=== PATIENT | male | born 1930 | race Caucasian/White ===

== ENCOUNTER 2017-10-22 06:59 | Inpatient (IN) | payer OTHER, MEDICARE ==
[2017-10-22] VITALS (8 sets, daily range): BP systolic 142–170; BP diastolic 82–101; PULSE 59–72; RESP 16–20; TEMP 97.6–99.1; O2SAT 95–98
[~2017-10-22] VITALS: Ht 162.6 cm; Wt 66.0 kg
[~2017-10-22 06:59] MED LIST: ASPI81 PO; CARD240C6 PO; LISI-360 PO; MELA5TAB8 PO; PRAV80 PO; TERA5CAP3 PO; VITA-13 PO
[2017-10-22] MEDS ORDERED: DOBUTamine PREMIX DRIP 250 ML ONE (07:41)
[2017-10-22] MEDS ORDERED: FURO40TA PO (07:45)
[2017-10-22] MEDS ORDERED: CARV3.12 PO (07:45)
[2017-10-22] MEDS ORDERED: KLOR10TA PO (07:45)
[2017-10-22] MEDS ORDERED: SODIUM CHLOR 0.9% 1000 ML INJ 1,000 ML IV SCH ×2 (07:45→13:22)
[2017-10-22] MEDS ORDERED: ASPI-183 PO (07:45)
[2017-10-22] MEDS ORDERED: TAMS0.4C4 PO (07:45)
[2017-10-22] MEDS ORDERED: TRAZ50TA12 PO (07:45)
[2017-10-22] MEDS ORDERED: CARD120C4 PO (07:45)
[2017-10-22] MEDS ORDERED: BUSP15TA PO (07:45)
[2017-10-22] MEDS ORDERED: VITA2000 PO (07:45)
[2017-10-22] MEDS ORDERED: ATOR80TA45 PO (07:45)
[2017-10-22 07:49] LABS: AUTOMATED NEUTROPHIL # 4.3 TH/MM3 (1.8-7.7); BASOPHIL # 0.1 TH/MM3 (0-0.2); BASOPHIL % 0.9 % (0.0-2.0); EOSINOPHIL # 0.5 TH/MM3 (0-0.4); EOSINOPHIL % 7.1 % (0.0-4.0); HEMATOCRIT 41.8 % (39.0-51.0); HEMOGLOBIN 14.6 GM/DL (13.0-17.0); LYMPH % 19.8 % (9.0-44.0); LYMPHOCYTE # 1.4 TH/MM3 (1.0-4.8); MEAN CELL VOLUME 89.4 FL (80.0-100.0); MEAN CORPUSCULAR HEMOGLOBIN 31.1 PG (27.0-34.0); MEAN CORPUSCULAR HGB CONC 34.8 % (32.0-36.0); MEAN PLATELET VOLUME 8.2 FL (7.0-11.0); MONO % 9.5 % (0.0-8.0); MONOCYTE # 0.7 TH/MM3 (0-0.9); NEUT % 62.7 % (16.0-70.0); PLATELET COUNT 176 TH/MM3 (150-450); RED BLOOD COUNT 4.68 MIL/MM3 (4.50-5.90); RED CELL DISTRIBUTION WIDTH 14.2 % (11.6-17.2); WHITE BLOOD COUNT 6.9 TH/MM3 (4.0-11.0)
[2017-10-22 07:58] LABS: INTERNATIONAL NORMALIZED RATIO 1.1 RATIO; PROTHROMBIN TIME - PATIENT 11.2 SEC (9.8-11.6)
[2017-10-22 08:00] LABS: ALBUMIN 4.2 GM/DL (3.4-5.0); BICARBONATE 30.6 MEQ/L (21.0-32.0); CALCIUM 9.1 MG/DL (8.5-10.1); CREATININE 1.4 MG/DL (0.60-1.30)
[2017-10-22] MEDS ORDERED: ASPIRIN 325 MG TAB PO SCH (08:00)
[2017-10-22] MEDS: NS 1000P @30 MLS/HR (KVO) IV SCH ×2 (08:00→19:00)
[2017-10-22] MEDS ORDERED: IOHEXOL 350 MG/ML 100 ML BTL (for Cath Lab) OTHER ONE (09:32)
[2017-10-22] MEDS ORDERED: IOHEXOL 350 MG/ML 50 ML BTL (for Cath Lab) OTHER ONE (09:32)
[2017-10-22] MEDS ORDERED: HEPARIN-NS/PF INJ 1,000 ML ONE ×2 (09:39→12:09)
[2017-10-22] MEDS ORDERED: MIDAZOLAM HCL 2 MG/2 ML VIAL ONE (09:40)
[2017-10-22] MEDS ORDERED: HEPARIN SODIUM - IV 10,000 UNITS/10 ML VIAL ONE (09:40)
[2017-10-22] MEDS ORDERED: VERAPAMIL HCL 5 MG/2 ML VIAL ONE (09:40)
[2017-10-22] MEDS ORDERED: NITROGLYCERIN INJ 5 ML ONE (09:40)
--- NOTE | 2017-10-22 09:40 | PD.FRAIL ---
Date: Oct 22, 2017 Height: Weight: 64.9 kg BMI: 24.7 Assessment Performed: Outpatient Albumin 10/22/17 07:40: Blood Urea Nitrogen 16, Creatinine 1.40, Random Glucose 119, Albumin 4.2, Calcium Level 9.1, Sodium Level 138, Potassium Level 3.6, Chloride Level 100, Carbon Dioxide Level 30.6 Pass/Fail: Pass Rust Activities Daily Living Rust ADL Score: Bathing(bathes self/help in single area): [place] (1), Dressing(gets/puts clothes on self): [place] (1), Toileting(goes without help): [place] ( 1), [facility] [place] ([facility]), Continence( complete self-control): [place] (1), Feeding(self, prep by another allowed) : [place] (1), Total: 6 Pass/Fail: Pass Wire Drawer Strength Grasp 1: 16 Grasp 2: 12 Grasp 3: 12 Average: 13.3 Pass/Fail: Fail 15-Foot Walk 15-Foot Walk (seconds): 6 Pass/Fail: Pass Total Frailty Total Frailty (out of 4): 1 Frailty Index Score Reference Wire Drawer Strength: BMI: <=24 Cutoff for banquet captain strength(Kg): <=29 BMI: 24.1-28 Cutoff for banquet captain strength(Kg): <=30 BMI: >28 Cutoff for banquet captain strength(Kg): <=32 15-Foot Walk: Height: <=173 cm 15-Foot Walk Cutoff Time: >=7 seconds Height: >173 cm 15-Foot Walk Cutoff Time: >=6 seconds Tommy Borjas RN Oct 22, 2017 09:40
[2017-10-22] MEDS ORDERED: PHENYLEPHRINE HCL 10 MG/ML VIAL ONE (10:34)
[2017-10-22] MEDS ORDERED: HEPARIN-NS/PF INJ 500 ML ONE (11:21)
--- NOTE | 2017-10-22 11:53 | RADRPT ---
EXAM DATE/TIME: 10/22/2017 07:57 [facility] COMPARISON: No previous studies available for comparison. INDICATIONS : TAVR evaluation. MEDICAL HISTORY : None. SURGICAL HISTORY : Pacemaker. ENCOUNTER: Initial ACUITY: 1 day PAIN SCORE: 0/10 LOCATION: Bilateral chest FINDINGS: A single view of the chest demonstrates the lungs to be symmetrically aerated without evidence of mas s, infiltrate or effusion. Left subclavian bipolar pacer in good position. The aorta is quite tortuou s. The cardiomediastinal contours are unremarkable. Osseous structures are intact. CONCLUSION: Lungs are grossly clear. Left subclavian pacer in good position. Aorta remains quite tortuous and prominent Jigar Donato MD on October 22, 2017 at 11:50 Board Certified Radiologist. This report was verified electronically.
[2017-10-22] MEDS ORDERED: HEPARIN-D5W 25,000 U/250 ML 250 ML ONE (12:37)
[2017-10-22] MEDS ORDERED: CLOPIDOGREL 300 MG TAB ONE (12:42)
--- NOTE | 2017-10-22 13:17 | CATHPROC ---
[facility] HIS Report Study Information Study Number Admission Scheduled Start Study Start [id number] Oct 22 2017 6:59AM 10/22/2017 Oct 22 2017 9:32AM [facility] Cardiac Catheterization Admit Source Facility Department Other [facility] - Performance Improvement Consultant Physician and Clinical Staff Initial MD Munoz, Juan Francisco Submarine Operatorevin Kessler RN, Albino Submarine OperatorTrinity Juares RN Other cathlab, cathlab Recorder Gael Chery RCIS(BS) Scrub Bro SandersRT(R) Procedures Performed Procedure Location (Site) Vessel Name Coronary Angiograms LCA Left Coronary Coronary Angiograms RCA Right Coronary Drug Eluting Inflatio LAD Mid Left Coronary IABP Fem Art (right) Femoral Art L Heart Cath PTCA LAD Mid Left Coronary Wire insertion Fem Art (right) Femoral Art Equipment Time Manager Sas Description Size Mfg Part Number Used/Scraped COPILOT VALVE, BLEEDBACK [id number] 10:41 [employer] Used CONTROL *[id number] WIRE, BALANCE MIDDLEWEIGHT [id number] 10:52 [employer] 190CM Used 190CM *[id number] WIRE, BALANCE MIDDLEWEIGHT [id number] 11:32 [employer] 190CM Used 190CM *[id number] WIRE, BALANCE MIDDLEWEIGHT [id number] 11:43 [employer] 300CM Used 300CM *[id number] 11:21 [employer] WIRE, DOC EXTENSION 145CM 145CM [id number] *[id number] Used TRANSDUCER, TRUWAVE [id number] 09:44 VARGAS CUETO * Used W/STOCKCOCK *[id number] INTRODUCER SET, 10:39 [employer]. FR 5 [id number] *[id number] Used MICROPUNCTURE, STIFFENED BALLOON, FR8 50CC SENSATION [id number]- 12:31 MAQUET FR 8 50CC Used PLUS 01U WIRE, CHOICE PT 300CM PT EX. [id number] 11:52 Meditech 300CM Used SUPP *[id number] 09:44 Chronicity INDUSTRIES PACK, CCL CUSTOM * Used *[id number] 09:44 Vonjour SUPPORT, ARTERIAL ADULT 03977 *0091562 Used BALLOON, 1.25 X 10MM [id number] 11:38 MEDTRONIC 10MM Used SPRINTER LEGEND RX *[id number] BALLOON, 1.25 X 6MM SPRINTER [id number] 11:21 MEDTRONIC 6MM Used LEGEND OTW *2048551 [id number] 11:04 MEDTRONIC BALLOON, 2.5 X 12MM EUPHORA 12MM Used *[id number] BALLOON, 3.0 X 15MM NC [id number] 11:14 MEDTRONIC 15MM Used EUPHORA *[id number] [id number] 09:55 MEDTRONIC JL 3.5 DXTERITY CATHETER FR 5 Used *[id number] 09:55 MEDTRONIC JR 4.0 DXTERITY CATHETER FR 5 [id number] Used [id number] 10:50 MEDTRONIC STENT, 2.5 8MM KILLIAN 2.5 8MM Used *2911929 [id number] 11:09 MEDTRONIC STENT, 2.75 12MM KILLIAN 2.75 12MM Used *4688614 [id number] 11:06 MEDTRONIC STENT, 2.75 15MM KILLIAN 2.75 15MM Used *3677967 [id number] 11:12 MEDTRONIC STENT, 2.75 8MM KILLIAN 2.75 8MM Used *[id number] [id number] 10:42 MEDTRONIC/AVE EBU 3.5 Z2 GUIDE CATHETER FR 6 Used *7894719 [id number] 10:41 [employer] MEDICAL 30 EVELIA INDEFLATOR Used *5525146 BAND, RADIAL COMPRESSION TR [id number] 12:41 [employer]IT [employer]ICAL 29CM Used LARGE 29 *5884918 [id number] 09:44 [employer] MEDICAL WIRE, 3MMJ .035 180CM 180CM Used *9922709 [id number] 09:44 NAMIC MANIFOLD, 4 PORT * Used *[id number] 09:44 NYCOMED OMNIPAQUE, 350 MG, 150ML 150ML [id number] Used [id number] 09:44 LING MEDICAL BLANKET,WARM AIR CCL * Used *8699294 [id number] 10:37 TERUMO MEDICAL SHEATH, FR6 TERUMO (10CM) FR 6 Used *3003811 SHEATH, FR6 TRANSRADIAL [id number] 09:44 [employer] MEDICAL FR 6 Used SLENDER 10CM *7086718 WIRE, RUNTHROUGH NS FLOPPY 25-1011 10:41 [employer] MEDICAL 180CM Used .014 180CM *[id number] 35-1450 11:27 TERUMO MEDICAL/DERRICK CATHETER, FINECROSS 150CM FR 5 Used *0150648 12:08 VASCULAR SOLUTIONS CATHETER, FR6 GUIDELINER FR 6 5571 *[id number] Used Equipment Model, Serial, Lot Number and Expiration Data Description Model Number Serial Number Lot Number Expiration Date CATHETER, FINECROSS 150CM [id number] 06-04-2019 INTRODUCER SET, [id number] 07-20-2020 MICROPUNCTURE, STIFFENED JR 4.0 DXTERITY CATHETER [id number] 07-01-2020 STENT, 2.5 8MM KILLIAN [id number] 07-21-2019 STENT, 2.75 12MM KILLIAN [id number] 03-19-2019 STENT, 2.75 8MM KILLIAN [id number] 12-17-2018 WIRE, CHOICE PT 300CM PT EX. [id number] 12-30-2018 SUPP History: Current Medications Medication Dosage/Unit Route Frequency Last Date/Time Taken Statins (any) Beta Tim ASA History: Allergies Allergy Reaction No Known Allergies History: Risk Factors Family History of Hypertension Dyslipidemia Previous TX Previous Heart Failure Premature CAD Yes Yes No Yes Yes Prior Valve Prior PCI Prior PCIDate Prior CABG Surgery No Yes 02/24/2014 No Cerebrovascular Peripheral Artery Chronic Lung On Dialysis Diabetes Disease Disease Disease No No No Yes No History: Symptoms/Diagnosis Selection Items GAUTAM SOB History: Stress Tests Stress or Imaging Studies Performed No History: Other Disease Selection Items CAD CHF HTN History: TX/CV Data Previous Cath Date 02/24/2014 History: Other Current Smoker No Labs Hgb (g/dl) Hct (%) WBC (l/cumm) Platelets (thousands) 11.60-17.00 35.00-51.00 4.00-11.00 150.00-450.00 14.6 41.8 6.9 176 Glucose (mg/dl) BUN (mg/dl) Creatinine (mg/dl) BUN:Creatinine (1:x) 74.00-106.00 7.00-18.00 0.50-1.30 10.00-20.00 119 16 1.4 11.4 Na (meq/l) K (meq/l) 136.00-145.00 3.50-5.10 138 3.6 INR (PTT:PT) 0.90-1.10 1.1 CPK-MB (ng/ML) 0.50-3.60 Not Drawn Medication Medication Total Dose (Bolus/Oral) Medication Total Dosage/Unit 1% XYLOCAINE 23 mL FENTANYL 75 mcg HEPARIN 5500 units OXYGEN 2 l/min PLAVIX 600 mg RADIAL COCKTAIL 5 mL (Bolus) VERSED 2 mg Medications (Bolus/Oral) Medication Time Given Dosage/Unit Administered By Reason VERSED 10/22/2017 10:20:00 AM 2 mg Albino Kessler RN 2 mg VERSED given in lab by Albino Kessler RN in Left Antecubital via Peripheral IV. Ordered by Juan Francisco Martell. FENTANYL 10/22/2017 10:21:00 AM 50 mcg Albino Kessler RN 50 mcg FENTANYL given in lab by Albino Kessler RN in Left Antecubital via Peripheral IV. Ordered by Juan Francisco Ocampo. 1% XYLOCAINE 10/22/2017 10:22:05 AM 3 mL ArnoldrJuan Francisco 3 mL 1% XYLOCAINE given in lab by Juan Francisco Munoz in Right Radial via Subcutaneous. OXYGEN 10/22/2017 10:22:47 AM 2 l/min Albino Kessler RN 2 l/min OXYGEN given in lab by Albino Kessler RN via Nasal. Ntg 200mcg Verapamil 2.5mg Heparin RADIAL COCKTAIL 10/22/2017 10:25:49 AM 5 mL (Bolus) Patrick Munozro 2500U 5 mL (Bolus) RADIAL COCKTAIL given in lab by Juan Francisco Munoz in Right Radial via Radial. Using [Radha ution Name]. Ordered by Juan Francisco Munoz. Reason: Ntg 200mcg Verapamil 2.5mg Heparin 2500U. 1% XYLOCAINE 10/22/2017 10:39:01 AM 20 mL Juan Francisco Munoz 20 mL 1% XYLOCAINE given in lab by Juan Francisco Munoz in Right Groin via Subcutaneous. HEPARIN 10/22/2017 10:41:30 AM 2500 units Albino Kessler RN 2500 units HEPARIN given in lab by Albino Kessler RN in Left Antecubital via Peripheral IV. Ordered by Juan Francisco Munoz. HEPARIN 10/22/2017 10:57:03 AM 3000 units Albino Kessler RN 3000 units HEPARIN given in lab by Albino Kessler RN in Left Antecubital via Peripheral IV. Ordered by Juan Francisco Munoz. FENTANYL 10/22/2017 12:12:21 PM 25 mcg Albino Kessler RN 25 mcg FENTANYL given in lab by Albino Kessler RN in Left Antecubital via Peripheral IV. Ordered by Juan Francisco Ocampo. PLAVIX 10/22/2017 12:45:20 PM 600 mg Trinity Briggs 600 mg PLAVIX given in lab by Trinity Briggs RN via Oral. Ordered by Juan Francisco Munoz. Medication (Drip) Medication Time Given Dosage/Unit Concentration/Unit Diluent (ml) Solution HEPARIN DRIP 10/22/2017 12:40:58 PM 1000 units/hr 95638 units 250 D5W 1000 units/hr HEPARIN DRIP given in lab by Trinity Briggs RN in Left Antecubital via Peripheral IV. Pump/Drip Flow = 10 ml/hr [place] [address] units in 250 ml. Ordered by Juan Francisco Munoz. FADIA-SYNEPHRINE 10/22/2017 10:35:11 AM 50 mcg 50 mcg FADIA-SYNEPHRINE given in lab by Albino Kessler RN in Left Antecubital via Peripheral IV. Ordered by Juan Francisco Munoz. FADIA-SYNEPHRINE 10/22/2017 11:06:03 AM 50 mcg 50 mcg FADIA-SYNEPHRINE given in lab by Albino Kessler RN in Left Antecubital via Peripheral IV. Ordered by Juan Francisco Munoz. FADIA-SYNEPHRINE 10/22/2017 11:09:21 AM 50 mcg 50 mcg FADIA-SYNEPHRINE given in lab by Albino Kessler RN in Left Antecubital via Peripheral IV. Ordered by Juan Francisco Munoz. Initial Case Assessment Cardiovascular HR Rhythm NIBP Chest Pain 69 nsr 177/86 0 Edema Present Skin color Skin None Normal Warm Dry Circulatory - Right Pulses Dorsalis Pedis Femoral Radial 1 3 2 Scale (0,1,2,3,4,d) Circulatory - Left Pulses Dorsalis Pedis Femoral Radial 1 3 Scale (0,1,2,3,4,d) Neurological State Oriented to time-place- Alert Moves all extremities person Respiration - General Respiration Rate SpO2 (%) (B/min) 15 97 Comment: see vitals Chronological Log Time Study Chronological Log 9:32:32 Patient arrived via Bed. 9:32:33 Patient Name, D.O.B, / Armband Verified By R.N. 9:32:33 Consent signed by the physician and the patient and verified by the Performance Improvement Consultant staff. 9:32:34 Pre-op and post- op instructions given; patient acknowledges understanding of instructions. 9:32:35 Presedation assessment performed by Performance Improvement Consultant RN. 9:32:36 Immediate Presedation assesment performed by physician. 9:32:37 Patient has been NPO for More than 6Hrs. 9:32:38 Skin Breakdown- none per patient 9:32:39 Patient Warmer Placed on the Table. 9:32:40 Radha Prominences Protected 9:32:41 A # 20 IV was noted in the Antecubital (left). Grade = 0 9:32:42 History and physical on the chart or being dictated. 9:32:49 Allens test performed on the right radial and ulnar artery. Vitals capture started with the following parameters, Patient=Adult, Interval=5 min, Initial Pr dzlgoq=603 mmHg, 9:39:15 Deflation Rate=5 mmHg, Cuff placed on Left Arm Assessment: Initial Case, HR=69 BPM, Rhythm=nsr, GWJM=143/86 mmhg, Chest Pain=0, Edema=None, Co radha=Normal, Skin = Warm, Dry Right Pulses: Austin Ped=1, Femoral=3, Radial=2 9:39:33 Left Pulses: Austin Ped=1, Femoral=3 Neurological: State=Alert, Ox3, CORREA Respiration: Resp=15 B/min, SpO2=97 %, Comment=see vitals 9:40:34 HR=69 bpm, HSZL=651/86 mmhg, SpO2=96.0 %, Resp=11 B/min, Pain=0, Janene=10, Keith=2 9:44:56 HR=68 bpm, UZWR=097/75 mmhg, SpO2=95.0 %, Resp=14 B/min, Pain=0, Janene=10, Keith=2 9:46:16 Right radial, right brachial, and groin(s) prepped with 2% chlorhexidine, and draped after a 3 min. waiting time. 9:49:55 HR=75 bpm, DSWQ=217/74 mmhg, SpO2=97.0 %, Resp=13 B/min, Pain=0, Janene=10, Keith=2 9:50:46 MD paged 9:51:34 Pressure channel 1 zeroed. 9:54:54 HR=66 bpm, CBOS=071/84 mmhg, SpO2=97.0 %, Resp=14 B/min, Pain=0, Janene=10, Keith=2 9:55:52 MD responded 9:58:18 Reference ECG taken 9:59:53 HR=63 bpm, NEJH=190/85 mmhg, SpO2=95.0 %, Resp=12 B/min, Pain=0, Janene=10, Keith=2 10:04:54 HR=61 bpm, CNIR=408/82 mmhg, SpO2=99.0 %, Resp=11 B/min, Pain=0, Janene=10, Keith=2 10:10:37 HR=60 bpm, JQXD=249/78 mmhg, SpO2=98.0 %, Resp=15 B/min, Pain=0, Janene=10, Keith=2 10:14:51 HR=63 bpm, TWMA=377/86 mmhg, SpO2=97.0 %, Resp=12 B/min, Pain=0, Janene=10, Keith=2 10:17:39 MD arrived. 10:17:43 Contrast Scanned 10:17:43 Immediate Presedation assesment performed by physician. 10:19:54 HR=62 bpm, PYEL=545/85 mmhg, SpO2=97.0 %, Resp=16 B/min, Pain=0, Janene=10, Keith=2 10:20:00 2 mg VERSED given in lab by Albino Kessler RN in Left Antecubital via Peripheral IV. Ordered by Juan Francisco Munoz. 10:21:00 50 mcg FENTANYL given in lab by Albnio Kessler RN in Left Antecubital via Peripheral IV. Orde red by Juan Francisco Munoz. Time Out. Correct patient, correct procedure, correct physician, power injector not loaded with contrast with surgical 10:21:27 team present. Time Out Concurred by MD and individual staff in procedure. 10:21:34 Case Start 10:21:34 Verbal Stimulation=2 Physical Stimulation=2 Airway=2 Respiration=2 TOTAL=8. (0=absent, 1=li mited, 2=present) 10:22:05 3 mL 1% XYLOCAINE given in lab by Juan Francisco Munoz in Right Radial via Subcutaneous. 10:22:47 2 l/min OXYGEN given in lab by Albino Kessler RN via Nasal. 10:24:57 HR=61 bpm, HLEE=051/66 mmhg, SpO2=95.0 %, Resp=20 B/min, Pain=0, Janene=10, Keith=2 10:25:34 Access site was Right Radial Artery. A SHEATH, FR6 TRANSRADIAL SLENDER 10CM FR 6 was advanced into the Radial (right) using the Perc utaneous 10:25:41 technique. 5 mL (Bolus) RADIAL COCKTAIL given in lab by Juan Francisco Munoz in Right Radial via Radial. Usin g [Solution Name]. 10:25:49 Ordered by Juan Francisco Munoz. Reason: Ntg 200mcg Verapamil 2.5mg Heparin 2500U. A JR 4.0 DXTERITY CATHETER FR 5 was advanced over a wire. OMNIPAQUE, 350 MG, 150ML 150ML was us ed for 10:25:58 injections. Recorded Pressure: Ao, HR=61, Condition=Condition 1 10:29:28 (Aorta) Ao 60/35/45 10:29:56 HR=57 bpm, NIBP=72/51 mmhg, SpO2=98.0 %, Resp=14 B/min, Pain=0, Janene=10, Keith=2 10:30:05 The RCA was injected and visualized at various angles. OMNIPAQUE, 350 MG, 150ML 150ML used . After removing the current catheter a JL 3.5 DXTERITY CATHETER FR 5 was advanced over a WIRE, 3 MMJ .035 180CM 10:32:09 180CM. 10:32:54 NIBP STAT measurement started. 10:33:19 HR=60 bpm, NIBP=83/40 mmhg, SpO2=98.0 %, Resp=11 B/min, Pain=0, Janene=10, Keith=2 10:34:42 The LCA was injected and visualized at various angles. OMNIPAQUE, 350 MG, 150ML 150ML used . 10:34:45 HR=60 bpm, NIBP=89/49 mmhg, SpO2=99.0 %, Resp=18 B/min, Pain=0, Janene=10, Keith=2 50 mcg FADIA-SYNEPHRINE given in lab by Albino Kessler RN in Left Antecubital via Peripheral IV. Or dered by Tammy, 10:35:11 Juan Francisco. 10:36:36 Catheter was removed 10:38:29 NIBP STAT measurement started. 10:39:01 20 mL 1% XYLOCAINE given in lab by Juan Francisco Munoz in Right Groin via Subcutaneous. 10:39:29 HR=60 bpm, AWOU=375/64 mmhg, SpO2=98.0 %, Resp=16 B/min, Pain=0, Janene=10, Keith=2 10:41:30 2500 units HEPARIN given in lab by Albino Kessler RN in Left Antecubital via Peripheral IV. O rdered by Juan Francisco Munoz. 10:41:52 Access site was Right Femoral Artery. A INTRODUCER SET, MICROPUNCTURE, STIFFENED FR 5 was advanced into the Fem Art (right) using the :41:54 Percutaneous technique. A SHEATH, FR6 TERUMO (10CM) FR 6 was exchanged in the Fem Art (right). This was necessary in or kevin to 10:41:58 accomodate a larger catheter. A EBU 3.5 Z2 GUIDE CATHETER FR 6 was advanced over a wire. OMNIPAQUE, 350 MG, 150ML 150ML was u sed for 10:42:03 injections. 10:44:02 A WIRE, RUNTHROUGH NS FLOPPY .014 180CM 180CM was inserted via Fem Art (right). 10:44:53 HR=60 bpm, THXT=532/72 mmhg, SpO2=97.0 %, Resp=15 B/min, Pain=0, Janene=10, Keith=2 10:49:08 Interventional wire has crossed the lesion 10:49:54 HR=60 bpm, BOJC=961/68 mmhg, SpO2=97.0 %, Resp=18 B/min, Pain=0, Janene=10, Keith=2 A STENT, 2.5 8MM KILLIAN 2.5 8MM was advanced through a EBU 3.5 Z2 GUIDE CATHETER FR 6 over a WIRE , 10:50:06 RUNTHROUGH NS FLOPPY .014 180CM 180CM. 10:52:10 Stent not deployed. Stent removed and intact. 10:52:49 Activated Clotting Time Drawn 10:53:19 A WIRE, BALANCE MIDDLEWEIGHT 190CM 190CM was inserted via Fem Art (right). 10:54:51 HR=60 bpm, XLJL=324/69 mmhg, SpO2=97.0 %, Resp=17 B/min, Pain=0, Janene=10, Keith=2 10:56:17 Interventional wire has crossed the lesion A STENT, 2.5 8MM KILLIAN 2.5 8MM was advanced through a EBU 3.5 Z2 GUIDE CATHETER FR 6 over a WIRE , 10:56:56 RUNTHROUGH NS FLOPPY .014 180CM 180CM. 10:57:03 3000 units HEPARIN given in lab by Albino Kessler RN in Left Antecubital via Peripheral IV. O rdered by Juan Francisco Munoz. 10:58:25 ACT (Normal Range 90-180) = 224 A STENT, 2.5 8MM KILLIAN 2.5 8MM was deployed using a 30 EVELIA INDEFLATOR at 14 atmospheres for 20 s econds in 10:58:55 the LAD Mid. 10:59:52 HR=60 bpm, WHFK=727/71 mmhg, SpO2=97.0 %, Resp=20 B/min, Pain=0, Janene=10, Keith=2 10:59:59 Delivery device removed 11:04:22 NIBP STAT measurement started. A BALLOON, 2.5 X 12MM EUPHORA 12MM was inserted over WIRE, RUNTHROUGH NS FLOPPY .014 180CM 180C M via 11:04:23 the LAD Mid. 11:04:57 HR=60 bpm, NIBP=79/47 mmhg, SpO2=97.0 %, Resp=18 B/min, Pain=0, Janene=10, Keith=2 A BALLOON, 2.5 X 12MM EUPHORA 12MM over a WIRE, RUNTHROUGH NS FLOPPY .014 180CM 180CM in the LA D Mid 11:05:07 was inflated using a 30 EVELIA INDEFLATOR at 6 evelia for 20 sec. 11:05:36 Balloon Removed. 50 mcg FADIA-SYNEPHRINE given in lab by Albino Kessler RN in Left Antecubital via Peripheral IV. Or dered by Rubio-Stalin, 11:06:03 Juan Francisco. A STENT, 2.75 15MM KILLIAN 2.75 15MM was advanced through a EBU 3.5 Z2 GUIDE CATHETER FR 6 over a WIRE, 11:06:09 BALANCE MIDDLEWEIGHT 190CM 190CM. 11:07:30 Stent not deployed. Stent removed and intact. 11:08:03 NIBP STAT measurement started. A STENT, 2.75 12MM KILLIAN 2.75 12MM was advanced through a EBU 3.5 Z2 GUIDE CATHETER FR 6 over a WIRE, 11:08:27 BALANCE MIDDLEWEIGHT 190CM 190CM. 11:08:28 HR=60 bpm, NIBP=93/49 mmhg, SpO2=97.0 %, Resp=15 B/min, Pain=0, Janene=10, Keith=2 50 mcg FADIA-SYNEPHRINE given in lab by Albino Kessler RN in Left Antecubital via Peripheral IV. Or dered by Tammy, 11:09:21 Juan Francisco. 11:09:48 HR=60 bpm, NIBP=99/51 mmhg, SpO2=98.0 %, Resp=15 B/min, Pain=0, Janene=10, Keith=2 A STENT, 2.75 12MM KILLIAN 2.75 12MM was deployed using a 30 EVELIA INDEFLATOR at 16 atmospheres for 20 seconds 11:10:11 in the LAD Mid. 11:10:51 Re-inflated the stent balloon in the LAD Mid to 14 EVELIA for 15 seconds. 11:10:59 Delivery device removed 11:12:24 NIBP STAT measurement started. A STENT, 2.75 8MM KILLIAN 2.75 8MM was advanced through a EBU 3.5 Z2 GUIDE CATHETER FR 6 over a WI RE, 11:12:40 BALANCE MIDDLEWEIGHT 190CM 190CM. 11:13:25 HR=60 bpm, WCKJ=754/71 mmhg, SpO2=98.0 %, Resp=16 B/min, Pain=0, Janene=10, Keith=2 A STENT, 2.75 8MM KILLIAN 2.75 8MM was deployed using a 30 EVELIA INDEFLATOR at 12 atmospheres for 14 seconds in 11:13:28 the LAD Mid. 11:13:45 Delivery device removed 11:14:51 HR=60 bpm, YXUL=654/68 mmhg, SpO2=97.0 %, Resp=17 B/min, Pain=0, Janene=10, Keith=2 A BALLOON, 3.0 X 15MM NC EUPHORA 15MM was inserted over WIRE, BALANCE MIDDLEWEIGHT 190CM 190CM via 11:15:13 the LAD Mid. A BALLOON, 3.0 X 15MM NC EUPHORA 15MM over a WIRE, RUNTHROUGH NS FLOPPY .014 180CM 180CM in the LAD 11:15:36 Mid was inflated using a 30 EVELIA INDEFLATOR at 16 evelia for 10 sec. A BALLOON, 3.0 X 15MM NC EUPHORA 15MM over a WIRE, RUNTHROUGH NS FLOPPY .014 180CM 180CM in the LAD 11:16:22 Mid was inflated using a 30 EVELIA INDEFLATOR at 16 evelia for 10 sec. 11:17:45 Balloon Removed. 11:19:56 HR=60 bpm, EVGN=170/68 mmhg, SpO2=97.0 %, Resp=18 B/min, Pain=0, Janene=10, Keith=2 11:21:29 A WIRE, DOC EXTENSION 145CM 145CM was inserted via Fem Art (right). A BALLOON, 1.25 X 6MM SPRINTER LEGEND OTW 6MM was inserted over WIRE, DOC EXTENSION 145CM 145CM via ::36 the LAD Mid. A BALLOON, 1.25 X 6MM SPRINTER LEGEND OTW 6MM over a WIRE, DOC EXTENSION 145CM 145CM in the LAD Mid 11:23:16 was inflated using a 30 EVELIA INDEFLATOR at 2 evelia for 10 sec. 11:23:44 Activated Clotting Time Drawn 11:24:55 HR=60 bpm, BZGS=360/70 mmhg, SpO2=98.0 %, Resp=19 B/min, Pain=0, Janene=10, Keith=2 11:27:27 Balloon Removed. A CATHETER, FINECROSS 150CM FR 5 was advanced over a wire. OMNIPAQUE, 350 MG, 150ML 150ML was u sed for 11:28:08 injections. 11:29:54 HR=60 bpm, JGFN=270/70 mmhg, SpO2=97.0 %, Resp=13 B/min, Pain=0, Janene=10, Keith=2 11:30:47 BMW Wire removed 11:30:59 Fine cross Catheter was removed A BALLOON, 3.0 X 15MM NC EUPHORA 15MM was inserted over WIRE, BALANCE MIDDLEWEIGHT 190CM 190CM via 11:31:16 the LAD Mid. 11:32:49 Balloon Removed. 11:32:58 A WIRE, BALANCE MIDDLEWEIGHT 190CM 190CM was inserted via Fem Art (right). 11:34:18 Activated Clotting Time Drawn 11:34:57 HR=60 bpm, XWLQ=188/70 mmhg, SpO2=97.0 %, Resp=19 B/min, Pain=0, Janene=10, Keith=2 11:35:00 Runthrough Wire removed A BALLOON, 1.25 X 10MM SPRINTER LEGEND RX 10MM was inserted over WIRE, BALANCE MIDDLEWEIGHT 190 CM 11:37:50 190CM via the LAD Mid. 11:39:56 HR=60 bpm, QFAJ=271/76 mmhg, SpO2=97.0 %, Resp=20 B/min, Pain=0, Janene=10, Keith=2 11:40:31 ACT (Normal Range 90-180) = 331 11:40:45 Balloon Removed. 11:43:18 A WIRE, BALANCE MIDDLEWEIGHT 300CM 300CM was inserted via Fem Art (right). 11:45:00 HR=60 bpm, JCWM=670/75 mmhg, SpO2=97.0 %, Resp=18 B/min, Pain=0, Janene=10, Keith=2 A CATHETER, FINECROSS 150CM FR 5 was advanced over a wire. OMNIPAQUE, 350 MG, 150ML 150ML was u sed for 11:45:06 injections. 11:49:12 A WIRE, BALANCE MIDDLEWEIGHT 300CM 300CM was inserted via Fem Art (right). 11:50:01 HR=60 bpm, DLIH=354/73 mmhg, SpO2=98.0 %, Resp=20 B/min, Pain=0, Janene=10, Keith=2 11:51:23 BMW Wire removed 11:52:22 A WIRE, CHOICE PT 300CM PT EX. SUPP 300CM was inserted via Fem Art (right). 11:54:58 HR=60 bpm, GACA=761/73 mmhg, SpO2=98.0 %, Resp=20 B/min, Pain=0, Janene=10, Keith=2 12:00:01 HR=61 bpm, KSWV=186/68 mmhg, SpO2=98.0 %, Resp=10 B/min, Pain=0, Janene=10, Keith=2 12:00:10 CHOICE PT Wire removed 12::24 FINECROSS Catheter was removed 12:04:58 HR=60 bpm, SYAW=527/77 mmhg, SpO2=98.0 %, Resp=18 B/min, Pain=0, Janene=10, Keith=2 12:09:12 Activated Clotting Time Drawn 12:: HR=60 bpm, DQQO=347/74 mmhg, SpO2=97.0 %, Resp=17 B/min, Pain=0, Janene=10, Keith=2 12:12: 25 mcg FENTANYL given in lab by Albino Kessler RN in Left Antecubital via Peripheral IV. Orde red by Juan Francisco Munoz. A CATHETER, FR6 GUIDELINER FR 6 was advanced over a wire. OMNIPAQUE, 350 MG, 150ML 150ML was us ed for 12:13:10 injections. A BALLOON, 2.5 X 12MM EUPHORA 12MM was inserted over WIRE, RUNTHROUGH NS FLOPPY .014 180CM 180C M via 12:14:02 the LAD Mid. A BALLOON, 2.5 X 12MM EUPHORA 12MM over a WIRE, RUNTHROUGH NS FLOPPY .014 180CM 180CM in the LA D Mid 12:14:44 was inflated using a 30 EVELIA INDEFLATOR at 8 evelia for 10 sec. 12:15:02 HR=60 bpm, THVZ=993/74 mmhg, SpO2=97.0 %, Resp=16 B/min, Pain=0, Janene=10, Keith=2 A BALLOON, 2.5 X 12MM EUPHORA 12MM over a WIRE, RUNTHROUGH NS FLOPPY .014 180CM 180CM in the LA D Mid 12:15:34 was inflated using a 30 EVELIA INDEFLATOR at 8 evelia for 10 sec. 12:16:28 ACT (Normal Range 90-180) = 345 A BALLOON, 2.5 X 12MM EUPHORA 12MM over a WIRE, RUNTHROUGH NS FLOPPY .014 180CM 180CM in the LA D Mid 12:17:08 was inflated using a 30 EVELIA INDEFLATOR at 8 evelia for 10 sec. A BALLOON, 2.5 X 12MM EUPHORA 12MM over a WIRE, RUNTHROUGH NS FLOPPY .014 180CM 180CM in the LA D Mid 12:18:44 was inflated using a 30 EVELIA INDEFLATOR at 2 evelia for 10 sec. 12:20:05 HR=60 bpm, RCFJ=598/59 mmhg, SpO2=98.0 %, Resp=16 B/min, Pain=0, Janene=10, Ekith=2 12:21:18 Balloon Removed. A BALLOON, 1.25 X 6MM SPRINTER LEGEND OTW 6MM was inserted over WIRE, DOC EXTENSION 145CM 145CM via 12:23:37 the LAD Mid. 12:25:00 HR=67 bpm, NIBP=95/68 mmhg, SpO2=97.0 %, Resp=16 B/min, Pain=0, Janene=10, Keith=2 12:26:27 NIBP STAT measurement started. 12:26:48 HR=75 bpm, NBXU=649/80 mmhg, SpO2=98.0 %, Resp=18 B/min 12:27:45 Balloon Removed. 12:27:49 Wire removed 12:27:50 Catheter was removed 12:29:44 Sheath exchanged for intra-aortic balloon insertion. An BALLOON, FR8 50CC SENSATION PLUS FR 8 50CC was advanced to the descending aorta. Proper pl acement was 12:29:46 confired under fluoroscopy and the balloon was sutured in place. Ratio = 1. Augmented BP 102/ 34 12:30:30 HR=61 bpm, ATAU=707/82 mmhg, SpO2=97.0 %, Resp=14 B/min, Pain=0, Janene=10, Keith=2 12:31:16 NIBP STAT measurement started. 12:31:54 HR=60 bpm, KSML=018/76 mmhg, SpO2=96.0 %, Resp=18 B/min, Pain=0, Janene=10, Keith=2 12:36:43 Vitals capture stopped. 12:36:46 Case End 12:40:03 In the Fem Art (right) the SHEATH, FR6 TERUMO (10CM) FR [address] by Bro Chin, RT(R). 12:40:12 Cine recording checked. 12:40:13 Bedside Report will be given. 12:40:15 Implantable Device card placed in patient's chart. 12:40:15 Contrast Scanned 12:40:17 Verbal Stimulation=2 Physical Stimulation=2 Airway=2 Respiration=2 TOTAL=8. (0=absent, 1= limited, 2=present) 12:40:22 A Left Heart Cath was performed. Radial Compression Device Used. 96 mLs of air placed in BAND, RADIAL COMPRESSION TR LARGE 29 29CM. Affected 12:40:33 hand 11 % O2 saturation. 1000 units/hr HEPARIN DRIP given in lab by Trinity Briggs, RN in Left Antecubital via Periph eral IV. Pump/Drip Flow 12:40:58 = 10 ml/hr [place] [address] units in 250 ml. Ordered by Polo Munoz. 12:45:20 600 mg PLAVIX given in lab by Trinity Briggs, EMILEE via Oral. Ordered by Juan Francisco Munoz. 12:46:16 Sterile dressing applied to site 13:05:04 Waiting for CVICU bed placement 13:05:58 Case complication noted. 13:07:05 Patient moved to [facility] End Study - Contrast Media Used In Study Contrast Total Opened (mL) Total Used (mL) Total Wasted (mL) Omnipaque 210 210 0 End Study - Maximum Contrast Load Max Contrast Load (mL) 231.8 End Study - Radiation Exposure Fluoro Time (minutes) 50.5 End Study - Patient Disposition Complications Transferred To Interventional Outcome Not selected Critical Care Bed a partial success
[2017-10-22] MEDS ORDERED: CLOPIDOGREL 300 MG TAB PO ONE (13:30)
[2017-10-22] MEDS ORDERED: ACETAMINOPHEN 325 MG TAB PO PRN (13:30)
[2017-10-22] MEDS ORDERED: MISC INFORMATION XX ONE (13:30)
[2017-10-22] MEDS ORDERED: ATROPINE SULFATE 1 MG/ML VIAL IV PUSH PRN (13:30)
[2017-10-22] MEDS ORDERED: ONDANSETRON HCL 4 MG/2 ML VIAL IV PUSH PRN (13:30)
[2017-10-22] MEDS ORDERED: diphenhydrAMINE HCL 50 MG CAP PO SCH (13:45)
--- NOTE | 2017-10-22 14:05 | MA ---
cc: FOZIA RENDON DATE: 10/22/2017 1932 PROCEDURE PERFORMED 1. Left heart catheterization. 2. Selective right and left coronary angiography. 3. PCI/LAUREN to distal LAD. 4. PCI/LAUREN to mid-LAD. INDICATION Chest pain, shortness of breath, preoperative workup for aortic valve replacement. APPROACH Right transfemoral. DESCRIPTION OF PROCEDURE Consent signed. 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 The right wrist was prepped and draped in sterile fashion using 1% lidocaine for local anesthesia, a micropuncture kit, a 6-Indian sheath was inserted into the right radial artery. Antispasmodic cocktail was given then selective right and left coronary angiography was performed with a JR-4 and JL- 4 diagnostic catheter. Angiography was taken in multiple views. The patient had significant vasospasm of the arteries of the arm for which is making it difficult to manipulate the catheters for which the procedure was changed to the right groin. On the angiographic portion of the study, the patient did have some significant lesion in the distal LAD of 90% as well as mid LAD lesion. This diseased portion of the LAD is significantly calcified with previous stents , this is a type C lesions due to calcification, tortuosity and previous stents. For the interventional portion, 1% lidocaine was used for local anesthesia for the right groin. Then with using the micropuncture kit a 6- Indian sheath was inserted into the right common femoral artery. Right common femoral artery angiography was performed to confirm position of the sheath. Then the left main was engaged with an EBU 3.5 guide. The vessel was wired with run through wire and the distal LAD was direct stented with a 2.5x 8 drug- eluting stent. There was a dissection on the mid portion of the LAD with ANDRIA 0 flow. This portion of the LAD was successfully stented with two 3.0x12mm and x8mm. There was a questionable distal dissection of the LAD with ANDRIA III flow. We were unable to wire that segment or balloon it, this small dissection is between stents, however unable to be stented. The LAD vessel remained with ANDRIA- III, patient remained stable. CT surgery was called for evaluation. An intraaortic balloon pump through the right groin and positioned via fluoroscopy. The patient remained stable throughout the procedure. No chest pain, no shortness of breath, no signs of heart failure and again final angiographic views revealed good stent position and expansion with ANDRIA III flow. The patient was then started on aspirin and Plavix and heparin and will be admitted to the CVICU for further evaluation. ANGIOGRAPHIC RESULTS 1. The right coronary artery is a dominant vessel, however, it is 100% occluded and small. It has been filled by collateral flow that is by the septals of the LAD. 2. The left main is small and patent, is giving off the left circumflex artery and the LAD. 3. The LAD has significant tortuosity, more than 70% ___ and also calcification. He does have patent stents in the proximal and mid LAD and significant 90% lesion distally. 4. The left circumflex artery is tortuous, it has two patent OM vessels and as well as two patent stents in the mid left circumflex artery. CONCLUSION 1. Successful PCI to distal and mid LAD with drug-eluting stents. 2. Successful intra-aortic balloon insertion. 3. Severe aortic stenosis with LV systolic dysfunction. RECOMMENDATIONS The patient will be admitted to the CV ICU for post cath care. He will remain in house with intraaortic balloon pump. We will watch him overnight. Continue heparin, aspirin and Plavix as well as his cardiac medications. will be consulted by Dr. Harman given the small contained dissection in the mid LAD. The case has been discussed with daughter who understands the details of the procedure. Will consult the quote clerk upon arrival to the CV ICU. Further management to be determined. MD ALANA Steele/ESTEFANY /1:06 PM /1:33 PM MARIA R
--- NOTE | 2017-10-22 15:10 | EKG ---
Date Performed: 10/22/2017 Time Performed: 08:45:16 PTAGE: 87 years EKG: Atrial pacing Inferior infarct - age undetermined Anteroseptal infarct - age undetermined L ateral ST-T changes are nonspecific Abnormal ECG Compared to prior electrocardiogram, Possible atrial pacing is present DOCTOR: Asher Vasquez Interpretating Date/Time 10/22/2017 15:09:04
--- NOTE | 2017-10-22 15:43 | PD.CAR.PN ---
CVT Progress Note Subjective/Hospital Course: sts data discussed with pt RISK SCORES About the STS Risk Calculator Procedure: AV Replacement + CAB Risk of Mortality: 13.025% Morbidity or Mortality: 55.068% Long Length of Stay: 32.727% Short Length of Stay: 4.941% Permanent Stroke: 3.228% Prolonged Ventilation: 46.464% DSW Infection: 0.432% Renal Failure: 16.878% Reoperation: 17.891% Objective: Vital Signs Date Time Temp Pulse Resp B/P (MAP) Pulse Ox O2 Delivery O2 Flow Rate FiO2 10/22/17 15:00 80/35 (75) 10/22/17 15:00 60 10/22/17 15:00 98.5 60 20 149/82 (104) 10/22/17 14:00 87/34 (79) 10/22/17 14:00 59 10/22/17 13:15 98.0 60 20 170/101 (124) 96 10/22/17 13:15 60 10/22/17 13:15 123/40 (112) 10/22/17 10:34 60 70/42 10/22/17 07:48 97.8 72 18 156/91 (112) 98 Labs: Laboratory Tests Test 10/22/17 07:40 White Blood Count 6.9 TH/MM3 (4.0-11.0) Red Blood Count 4.68 MIL/MM3 (4.50-5.90) Hemoglobin 14.6 GM/DL (13.0-17.0) Hematocrit 41.8 % (39.0-51.0) Mean Corpuscular Volume 89.4 FL (80.0-100.0) Mean Corpuscular Hemoglobin 31.1 PG (27.0-34.0) Mean Corpuscular Hemoglobin Concent 34.8 % (32.0-36.0) Red Cell Distribution Width 14.2 % (11.6-17.2) Platelet Count 176 TH/MM3 (150-450) Mean Platelet Volume 8.2 FL (7.0-11.0) Neutrophils (%) (Auto) 62.7 % (16.0-70.0) Lymphocytes (%) (Auto) 19.8 % (9.0-44.0) Monocytes (%) (Auto) 9.5 % (0.0-8.0) Eosinophils (%) (Auto) 7.1 % (0.0-4.0) Basophils (%) (Auto) 0.9 % (0.0-2.0) Neutrophils # (Auto) 4.3 TH/MM3 (1.8-7.7) Lymphocytes # (Auto) 1.4 TH/MM3 (1.0-4.8) Monocytes # (Auto) 0.7 TH/MM3 (0-0.9) Eosinophils # (Auto) 0.5 TH/MM3 (0-0.4) Basophils # (Auto) 0.1 TH/MM3 (0-0.2) CBC Comment DIFF FINAL Differential Comment Prothrombin Time 11.2 SEC (9.8-11.6) Prothromb Time International Ratio 1.1 RATIO Activated Partial Thromboplast Time 25.2 SEC (24.3-30.1) Blood Urea Nitrogen 16 MG/DL (7-18) Creatinine 1.40 MG/DL (0.60-1.30) Random Glucose 119 MG/DL (74-106) Albumin 4.2 GM/DL (3.4-5.0) Calcium Level 9.1 MG/DL (8.5-10.1) Sodium Level 138 MEQ/L (136-145) Potassium Level 3.6 MEQ/L (3.5-5.1) Chloride Level 100 MEQ/L (98-107) Carbon Dioxide Level 30.6 MEQ/L (21.0-32.0) Anion Gap 7 MEQ/L (5-15) Estimat Glomerular Filtration Rate 48 ML/MIN (>89) Result Diagram: 10/22/17 0740 10/22/17 0740 Thelma Guzman Oct 22, 2017 15:43
--- NOTE | 2017-10-22 16:39 | ECHRPT ---
Indication: PRE CATH, POSS TAVR, DOBUTAMINE SE CONCLUSIONS Severe LV systolic Dysfunction Severe Aortic Stenosis Low Flow Low Gradient Aortic Stenosis STRESS TEST Protocol: Duration (m:s): Resting HR (bpm): Resting BP (mmHg):143 /81 MPHR: 135 Target HR: 115 Peak HR (bpm): Peak BP (mmHg): / % MPHR: Double Product: Target HR Summary: BP Response: Termination Reason: Cardiac Symptoms: REST ECHO FINDINGS MEASUREMENTS (Male/Female) Normal Values 2D ECHO LV Diastolic Diameter DIANA 5.6 cm 4.2 - 5.9 / 3 RV Internal Dim ED PLAX 3.0 cm LV Systolic Diameter PLAX 4.8 cm LVOT Diameter 2.4 cm IVS Diastolic Thickness 0.8 cm 0.6 - 1.0 / 0 Aortic Root Diameter 2.8 cm LVPW Diastolic Thickness 0.8 cm 0.6 - 1.0 / 0 LA Systolic Diameter LX 3.3 cm 3.0 - 4 .0 / 2.7 - 3.8 cm LV Relative Wall Thicknes 0.3 DOPPLER AV Peak Velocity 420.0 cm/s AV Area Cont Eq vti 0.7 cm AV Peak Gradient 70.6 mmHg AV Area Cont Eq pk 0.6 cm AV Mean Gradient 40.0 mmHg TR Peak Velocity 270.0 cm/s AV Velocity Time Integral 99.4 cm TR Peak Gradient 29.2 mmHg LVOT Peak Velocity 55.6 cm/s Right Atrial Pressure 10.0 mmHg LVOT Peak Gradient 1.2 mmHg Pulmonary Artery Systolic 39.2 mmHg LVOT Velocity Time Integr 15.0 cm Right Ventricular Systoli 39.2 mmHg Juan Francisco Munoz MD (Electronically Signed) Final Date:22 October 2017 16:37
[2017-10-22] MEDS ORDERED: HEPARIN SODIUM - IV 10,000 UNITS/10 ML VIAL IV PUSH PRN ×2 (16:45)
[2017-10-22] MEDS ORDERED: HEPARIN 25,000 UNITS-D5W 250 ML - PREMIX IV PRN (16:45)
--- NOTE | 2017-10-22 17:20 | PD.CONS ---
[facility] Service Critical Care Medicine Consult Requested By Dr. 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 Rubio service to undergo right and left cardiac catheterization as part of evaluation for TAVR. Left heart cath revealed significant coronary artery disease, with significant lesions and left anterior descending. Patient underwent successful PCI to distal and mid LAD with drug-eluting stents. Patient sustained a contained dissection of the mid LAD following PCI but had good ANDRIA-III flow. Dr. Rubio also placed intra-aortic balloon as a precaution. Cardiovascular surgery was consulted, Dr. Isaacs evaluated the patient. Patient was started on IV heparin and aspirin and Plavix and moved to the CVICU. I evaluated the patient in CVICU. No complaints of chest pain. IABP at 2:1 augmentation. Review of Systems ROS Limitations: Other (as per HPI) Past Family Social History Allergies: Coded Allergies: No Known Allergies (Verified , 02/23/14) Past Medical History Severe aortic stenosis Coronary artery disease AICD COPD Ischemic cardiomyopathy Hypertension CKD Anxiety History of CHF Diverticulosis Past Surgical History History of AAA repair AICD implantation Hernia repair Reported Medications Aspirin 325 mg daily Lipitor 80 mg daily Buspirone 15 mg daily Cardizem CD 120 mg daily Carvedilol 3.125 mg twice a day Lasix 40 mg daily Potassium Sublingual nitrates when necessary Tamsulosin 0.4 mg daily Trazodone 50 mg daily Vitamin D 3 daily Active Ordered Medications Reviewed Family History Family history significant for CVA in brother Brain tumor and sister Social History Occasional alcohol use Smokes about 5 cigarettes a day Physical Exam Vital Signs Vital Signs Date Time Temp Pulse Resp B/P (MAP) Pulse Ox O2 Delivery O2 Flow Rate FiO2 10/22/17 16:00 95/39 (79) 10/22/17 16:00 60 10/22/17 15:00 80/35 (75) 10/22/17 15:00 60 10/22/17 15:00 98.5 60 20 149/82 (104) 10/22/17 14:00 87/34 (79) 10/22/17 14:00 59 10/22/17 13:15 98.0 60 20 170/101 (124) 96 10/22/17 13:15 60 10/22/17 13:15 123/40 (112) 10/22/17 10:34 60 70/42 10/22/17 07:48 97.8 72 18 156/91 (112) 98 Physical Exam GENERAL: Well-nourished, well-developed patient in no apparent distress. SKIN: Warm and dry. HEAD: Atraumatic. Normocephalic. EYES: Pupils equal and round. No scleral icterus. No injection or drainage. ENT: No nasal bleeding or discharge. Mucous membranes pink and moist. NECK: Trachea midline. No JVD. CARDIOVASCULAR: Regular rate and rhythm. Crescendo decrescendo murmur aortic area. Conducted sounds from IABP RESPIRATORY: No accessory muscle use. Clear to auscultation. Breath sounds equal bilaterally. GASTROINTESTINAL: Abdomen soft, non-tender, nondistended MUSCULOSKELETAL: IABP R groin site. Peripheral pulse palpable NEUROLOGICAL: Awake and alert. No obvious cranial nerve deficits. Motor grossly within normal limits. Normal speech. PSYCHIATRIC: Appropriate mood and affect; insight and judgment normal. Laboratory Laboratory Tests Test 10/22/17 07:40 White Blood Count 6.9 Red Blood Count 4.68 Hemoglobin 14.6 Hematocrit 41.8 Mean Corpuscular Volume 89.4 Mean Corpuscular Hemoglobin 31.1 Mean Corpuscular Hemoglobin Concent 34.8 Red Cell Distribution Width 14.2 Platelet Count 176 Mean Platelet Volume 8.2 Neutrophils (%) (Auto) 62.7 Lymphocytes (%) (Auto) 19.8 Monocytes (%) (Auto) 9.5 Eosinophils (%) (Auto) 7.1 Basophils (%) (Auto) 0.9 Neutrophils # (Auto) 4.3 Lymphocytes # (Auto) 1.4 Monocytes # (Auto) 0.7 Eosinophils # (Auto) 0.5 Basophils # (Auto) 0.1 CBC Comment DIFF FINAL Differential Comment Prothrombin Time 11.2 Prothromb Time International Ratio 1.1 Activated Partial Thromboplast Time 25.2 Blood Urea Nitrogen 16 Creatinine 1.40 Random Glucose 119 Albumin 4.2 Calcium Level 9.1 Sodium Level 138 Potassium Level 3.6 Chloride Level 100 Carbon Dioxide Level 30.6 Anion Gap 7 Estimat Glomerular Filtration Rate 48 Result Diagram: 10/22/17 0740 10/22/17 0740 Assessment and Plan Assessment and Plan ASSESSMENT: Severe coronary artery disease status post PCI/stent to LAD 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 Isaacs consulted in case emergency surgical intervention needed - Continue aspirin Plavix and IV heparin GI: - Cardiac diet if okay with Dr. Rubio - Famotidine for GI prophylaxis : - Monitor renal function closely. ID: - Monitor closely for infection HEME: - Monitor CBC, CMP ENDO: - Electrolyte replacement per protocol PROPH: - IV Heparin, IV Famotidine LINES: - Utilize peripheral IVs, central line if needed Level 3 new consult Code Status Full Discussed Condition With Dali Leiva MD Oct 22, 2017 17:19
[2017-10-22 18:21] LABS: HEMATOCRIT 39.4 % (39.0-51.0); HEMOGLOBIN 13.2 GM/DL (13.0-17.0); MEAN CORPUSCULAR HEMOGLOBIN 30.1 PG (27.0-34.0); MEAN CORPUSCULAR HGB CONC 33.4 % (32.0-36.0); MEAN PLATELET VOLUME 8.3 FL (7.0-11.0); PLATELET COUNT 142 TH/MM3 (150-450); RED BLOOD COUNT 4.37 MIL/MM3 (4.50-5.90); RED CELL DISTRIBUTION WIDTH 14.6 % (11.6-17.2); WHITE BLOOD COUNT 6.7 TH/MM3 (4.0-11.0)
[2017-10-22] MEDS ORDERED: RESP: ALBUTEROL 2.5 MG/IPRATROPIUM 0.5 MG NEB (PRN) NEB (19:30)
[2017-10-22] MEDS: traZODone HCL 50 MG TAB PO SCH (20:32)
[2017-10-22] MEDS: ATORVASTATIN 80 MG TAB PO SCH (20:32)
[2017-10-22] MEDS: busPIRone HCL 5 MG TAB PO SCH (20:32)
[2017-10-22] MEDS: TAMSULOSIN HCL 0.4 MG CAP PO SCH (20:32)
[2017-10-22] MEDS: CARVEDILOL 3.125 MG TAB PO SCH (20:33)
[2017-10-22] MEDS ORDERED: CARVEDILOL 3.125 MG TAB PO SCH (21:00)
[2017-10-22] MEDS ORDERED: ALPRAZolam 0.25 MG TAB PO ONE (21:15)
[2017-10-22] MEDS: FAMOTIDINE 20 MG/2 ML VIAL IV PUSH SCH (22:20)
[2017-10-23] VITALS (10 sets, daily range): BP systolic 114–139; BP diastolic 50–74; PULSE 71–86; RESP 16; TEMP 97.8–98.6; O2SAT 94–96
[2017-10-23 03:58] LABS: AUTOMATED NEUTROPHIL # 5.4 TH/MM3 (1.8-7.7); BASOPHIL % 0.6 % (0.0-2.0); EOSINOPHIL # 0.2 TH/MM3 (0-0.4); EOSINOPHIL % 2.3 % (0.0-4.0); HEMOGLOBIN 12.7 GM/DL (13.0-17.0); LYMPH % 11.5 % (9.0-44.0); LYMPHOCYTE # 0.8 TH/MM3 (1.0-4.8); MEAN CELL VOLUME 90.1 FL (80.0-100.0); MEAN CORPUSCULAR HEMOGLOBIN 30.8 PG (27.0-34.0); MEAN CORPUSCULAR HGB CONC 34.2 % (32.0-36.0); MEAN PLATELET VOLUME 8.4 FL (7.0-11.0); MONO % 9.1 % (0.0-8.0); MONOCYTE # 0.6 TH/MM3 (0-0.9); NEUT % 76.5 % (16.0-70.0); PLATELET COUNT 134 TH/MM3 (150-450); RED BLOOD COUNT 4.11 MIL/MM3 (4.50-5.90); RED CELL DISTRIBUTION WIDTH 14.6 % (11.6-17.2); WHITE BLOOD COUNT 7.1 TH/MM3 (4.0-11.0)
[2017-10-23 04:26] LABS: CALCIUM 8.4 MG/DL (8.5-10.1); CREATININE 1.26 MG/DL (0.60-1.30)
[2017-10-23] MEDS: NS 1000P @30 MLS/HR (KVO) IV SCH ×2 (08:00→11:12)
[2017-10-23 08:14] LABS: BILIRUBIN, URINE NEG (NEG); BLOOD, URINE SMALL (NEG); GLUCOSE,URINE NEG (NEG); KETONE, URINE TRACE mg/dL (NEG); MUCUS URINE FEW /lpf (OCC); NITRITE,URINE NEG (NEG); URINE COLOR YELLOW (YELLW/STRAW); URINE LEUKOCYTE ESTERASE NEG (NEG)
--- NOTE | 2017-10-23 08:28 | MB ---
cc: ONI LISA MD, ZAW DATE OF CONSULTATION: 10/22/17 DATE OF : 1930 HISTORY OF PRESENT ILLNESS An [id number]-male a patient of Dr. Abdi Zamudio and Dr. Rubio who has a history of severe aortic stenosis, presented for heart cath evaluation to be evaluated for possible transcatheter aortic valve replacement. The patient underwent cardiac cath where he was found to have 70% stenosis of the proximal LAD, 90% stenosis of the distal LAD, the circ was 70%, the RCA was 100% occluded. Dr. Rubio placed two drug eluting stents into the LAD with a small dissection in between the stents however had good ANDRIA-III flow. We were consulted for CT evaluation. Intra-aortic balloon pump was placed for precaution. He was continued on heparin and aspirin. Currently the patient is stable. He has been transferred to the Intensive Care Unit with an intra-aortic balloon pump with a 1:2 augmentation. Augmentation pressure 146. It was decreased from 1:1 due to his higher augmentation pressure of 150-160. PAST MEDICAL HISTORY His past medical history includes - 1. Coronary artery disease with prior MD. 2. History of syncopal episode approximately aae-qdl-c-half years ago where he had an AICD placed, [employer]. 3. Anxiety disorder. 4. Chronic kidney disease stage II. 5. COPD. 6. CHF. 7. Diverticulosis. 8. Hyperlipidemia. 9. Hypertension. 10. Insomnia. 11. Ischemic cardiomyopathy, EF of approximately 35%. 12. History of venous thrombosis. 13. Vitamin D deficiency. PAST SURGICAL HISTORY 1. Abdominal aortic aneurysm repair 2009. 2. AICD implantation. 3. Cardiac cath 2013. 4. Hernia repair. 5. Some toe surgery on the right foot. ALLERGIES NO KNOWN DRUG ALLERGIES. MEDICATIONS Home meds include - 1. Aspirin 325 daily. 2. Atorvastatin 80. 3. BuSpar 15 mg. 4. Cardizem 120. 5. Coreg 3.125 b.i.d. 6. Lasix 40 b.i.d. 7. Potassium daily. 8. Nitro p.r.n. 9. Flomax 0.4 daily. 10. Trazodone 50. FAMILY HISTORY Father at 58 from cancer. Mother from old age at age 80. SOCIAL HISTORY The patient is , has six children. Retired from [employer]. 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 He has an occasional cigar. He is rather active. He walks the entire flea market on Saturdays. He works in his yard. He drives his car. REVIEW OF SYSTEMS GENERAL: No night sweats, fever, heat and cold intolerance. SKIN: No psoriasis, itching or hives. HEENT: No blurred vision or hearing loss. RESPIRATORY: Some shortness of breath with exertion. CARDIOVASCULAR: No chest pain. No paroxysmal nocturnal dyspnea. No orthopnea. GASTROINTESTINAL: No diarrhea or vomiting. GENITOURINARY: No burning, frequency or urgency. DULSER: No history of TIA, CVA or seizure disorder. ENDOCRINOLOGY: No history of diabetes. PHYSICAL EXAMINATION GENERAL: A well-developed male. VITAL SIGNS: Blood pressure 150/80, heart rate of 60, temp max 98.5, O2 sat 96 on room air. The patient is awake, alert, in no acute distress. HEAD, EYES, EARS, NOSE AND THROAT: Head is normocephalic, atraumatic. Pupils equal and reactive. Oral mucosa pink, moist. NECK: Supple. No JVD. HEART: Heart sounds S1 and S2 with a grade 3/6 systolic murmur best under the left sternal border. LUNGS: Diminished in the bases otherwise clear to auscultation. ABDOMEN: Soft, nontender. No masses or organomegaly. He has an intra-aortic balloon pump in the right groin. Good distal pulses. He is on a 1:2 augmentation. LABORATORY WORK Lab work shows hemoglobin 14, hematocrit of 41, white cell count of 6.9, platelet count of 176. Sodium 138, potassium 3.6, BUN of 16, creatinine 1.40. INR 1.1. IMAGING Chest x-ray early this morning showed lungs were grossly clear. Left subclavian pacer in good position. IMPRESSION This is an 87-year-old male undergoing evaluation for transcatheter aortic valve replacement, underwent his cardiac catheterization with mid distal LAD disease. The patient is now status post drug-eluting stent x2 to the LAD with a small dissection in between the stents; therefore, an intra-aortic balloon pump was placed for precaution. The patient is currently stable at this time on no pressors. He remains on heparin drip. The STS risk data included for AVR, CABG includes risk of mortality of 13%. He also has some calcified aorta. His risk factors for aortic valve replacement includes elevated STS score, advanced age, EF of 30-35%, COPD, coronary artery disease, and obvious recent post stenting x2 to the LAD. We will follow the patient closely in hopes that the patient stabilizes after his stent placement and possible evaluation for removal of intra-aortic balloon pump in the a.m. At that point, recommend further evaluation by our partner, Dr. Lynn, for TAVR evaluation at a later date. In the meantime, we will be on standby should anything occur or that the patient would need any type of emergency surgery. Dictated by ZAKIA Mccoy MD JUAN CARLOS Lopez/ROYCE /3:46 PM /8:06 AM
[2017-10-23] MEDS: FAMOTIDINE 20 MG/2 ML VIAL IV PUSH SCH ×2 (08:47→21:22)
[2017-10-23] MEDS: DILTIAZEM-CD 120 MG CAP ER PO SCH (08:47)
[2017-10-23] MEDS: CARVEDILOL 3.125 MG TAB PO SCH ×2 (08:48→21:20)
[2017-10-23] MEDS: CHOLECALCIFEROL (VIT D3) 1000 UNIT TAB PO SCH (08:48)
[2017-10-23] MEDS: ASPIRIN 81 MG CHEW TAB PO SCH (08:48)
[2017-10-23] MEDS: busPIRone HCL 5 MG TAB PO SCH ×2 (08:49→21:22)
[2017-10-23] MEDS: CLOPIDOGREL 75 MG TAB PO SCH (08:50)
--- NOTE | 2017-10-23 09:26 | HHI.CCPN ---
Subjective Remarks/Hospital Course Patient is a 87-year-old male with past medical history significant for severe aortic stenosis, coronary artery disease, AICD placement, COPD, ischemic cardiac myopathy, history of myocardial infarction, who was admitted today to Dr. Rubio service to undergo right and left cardiac catheterization as part of evaluation for TAVR. Left heart cath revealed significant coronary artery disease, with significant lesions and left anterior descending. Patient underwent successful PCI to distal and mid LAD with drug-eluting stents. Patient sustained a contained dissection of the mid LAD following PCI but had good ANDRIA-III flow. Dr. Rubio also placed intra-aortic balloon as a precaution. Cardiovascular surgery was consulted, Dr. Isaacs evaluated the patient. Patient was started on IV heparin and aspirin and Plavix and moved to the CVICU. I evaluated the patient in CVICU. No complaints of chest pain. IABP at 2:1 augmentation. 10/23: No acute events overnight. IABP remains with good augmentation. Patient denies any chest pain. Slightly anxious and tearful about events, and postponement of TAVR Objective Vital Signs Date Time Temp Pulse Resp B/P (MAP) Pulse Ox O2 Delivery O2 Flow Rate FiO2 10/23/17 08:00 95 Room Air 10/23/17 08:00 72 10/23/17 08:00 139/61 (113) 10/23/17 08:00 16 10/23/17 03:00 98.1 Intake and Output 10/23/17 10/23/17 10/24/17 08:00 16:00 00:00 Intake Total 460 ml Output Total 375 ml Balance 85 ml Result Diagram: 10/23/17 0343 10/23/17 0343 Objective Remarks GENERAL: Well-nourished, well-developed patient in no apparent distress. SKIN: Warm and dry. HEAD: Atraumatic. Normocephalic. EYES: Pupils equal and round. No scleral icterus. No injection or drainage. ENT: No nasal bleeding or discharge. Mucous membranes pink and moist. NECK: Trachea midline. No JVD. CARDIOVASCULAR: Regular rate and rhythm. Crescendo decrescendo murmur aortic area. Conducted sounds from IABP RESPIRATORY: No accessory muscle use. Clear to auscultation. Breath sounds equal bilaterally. GASTROINTESTINAL: Abdomen soft, non-tender, nondistended MUSCULOSKELETAL: IABP R groin site. Peripheral pulse palpable NEUROLOGICAL: Awake and alert. No obvious cranial nerve deficits. Motor grossly within normal limits. Normal speech. 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 Consider wean to DC Effexor Dr. Rubio - Dr. Isaacs consulted in case emergency surgical intervention needed - Continue aspirin Plavix and IV heparin - Continue Cardizem and Coreg GI: - Cardiac diet if okay with Dr. Rubio - Famotidine for GI prophylaxis : - Monitor renal function closely. ID: - Monitor closely for infection HEME: - Monitor CBC, CMP ENDO: - Electrolyte replacement per protocol PROPH: - IV Heparin, IV Famotidine LINES: - Utilize peripheral IVs, central line if needed Level 3 follow up Patient critically ill but stabilizing. Coronary artery dissection remains stable clinically. Evaluate for TAVR at a later date. Continue ICU monitoring while on IABP Dali Rizzo MD Oct 23, 2017 09:26
--- NOTE | 2017-10-23 10:50 | PD.CARD.PN ---
Subjective Subjective Remarks no overnight events no complaints Objective Medications Current Medications Medications (Trade) Dose Ordered Sig/Eddy Route Start Time Stop Time Status Last Admin Sodium Chloride 1,000 ml @ 0 mls/hr Q0M IV 10/22/17 07:45 Sodium Chloride 1,000 ml @ 30 mls/hr Q24H IV 10/22/17 08:00 (Aspirin) 325 mg TELEPHONE OPERATOR RECEPTIONIST PO 10/22/17 08:00 10/25/17 07:59 (Tylenol) 325 mg Q4H PRN PO 10/22/17 13:30 (Aspirin Chew) 81 mg DAILY PO 10/23/17 09:00 10/23/17 08:48 (Plavix) 75 mg DAILY PO 10/23/17 09:00 10/23/17 08:50 (Atropine Inj) 0.5 mg UNSCH PRN IV PUSH 10/22/17 13:30 (Zofran Inj) 4 mg Q4H PRN IV PUSH 10/22/17 13:30 10/22/17 22:27 (Coreg) 3.125 mg BID PO 10/22/17 21:00 10/23/17 08:48 (Lipitor) 80 mg HS PO 10/22/17 21:00 10/22/17 20:32 (Buspar) 15 mg BID PO 10/22/17 21:00 10/23/17 08:49 (Vitamin D3) 2,000 units DAILY PO 10/23/17 09:00 10/23/17 08:48 (Cardizem Cd) 120 mg DAILY PO 10/23/17 09:00 10/23/17 08:47 (Flomax) 0.4 mg HS PO 10/22/17 21:00 10/22/17 20:32 (Desyrel) 50 mg HS PO 10/22/17 21:00 10/22/17 20:32 Sodium Chloride 1,000 ml @ 30 mls/hr Q24H IV 10/22/17 13:45 10/22/17 19:00 (Benadryl) 50 mg TELEPHONE OPERATOR RECEPTIONIST PO 10/22/17 13:45 10/25/17 13:44 Heparin Sodium/ Dextrose 250 ml @ 10 mls/hr TITRATE PRN IV 10/22/17 16:45 (Heparin Inj) 5,000 units UNSCH PRN IV PUSH 10/22/17 16:45 (Heparin Inj) 2,500 units UNSCH PRN IV PUSH 10/22/17 16:45 (Duoneb Neb) 1 ampule Q6HR NEB PRN NEB 10/22/17 19:30 (Pepcid Inj) 10 mg Q12H IV PUSH 10/22/17 21:00 10/23/17 08:47 Vital Signs / I&O Vital Signs Date Time Temp Pulse Resp B/P (MAP) Pulse Ox O2 Delivery O2 Flow Rate FiO2 10/23/17 08:00 95 Room Air 10/23/17 08:00 72 10/23/17 08:00 139/61 (113) 10/23/17 08:00 74 16 137/70 (92) 95 10/23/17 06:00 133/47 (96) 10/23/17 05:00 117/44 (93) 10/23/17 04:00 112/46 (92) 10/23/17 03:00 96 Room Air 10/23/17 03:00 98.1 71 16 114/50 (71) 94 10/23/17 03:00 72 10/23/17 03:00 92/41 (83) 10/23/17 02:00 104/48 (89) 10/23/17 01:00 98/45 (91) 10/23/17 00:00 112/46 (92) 10/22/17 23:00 95 Room Air 10/22/17 23:00 96/44 (83) 10/22/17 23:00 70 10/22/17 23:00 99.1 69 16 142/100 (114) 95 10/22/17 22:00 106/46 (93) 10/22/17 21:00 102/44 (92) 10/22/17 20:00 114/52 (103) 10/22/17 19:00 97.6 68 18 97 10/22/17 19:00 69 10/22/17 19:00 106/49 (93) 10/22/17 18:00 111/46 (96) 10/22/17 17:00 67 10/22/17 17:00 104/44 (91) 10/22/17 16:00 95/39 (79) 10/22/17 16:00 60 10/22/17 15:00 80/35 (75) 10/22/17 15:00 60 10/22/17 15:00 98.5 60 20 149/82 (104) 10/22/17 14:00 87/34 (79) 10/22/17 14:00 59 10/22/17 13:15 98.0 60 20 170/101 (124) 96 10/22/17 13:15 60 10/22/17 13:15 123/40 (112) I/O 10/22/17 10/22/17 10/22/17 10/23/17 10/23/17 10/23/17 07:00 15:00 23:00 07:00 15:00 23:00 Intake Total 940 ml 460 ml Output Total 375 ml Balance 940 ml 85 ml Intake Oral 180 ml 460 ml IV Total 760 ml Output Urine Total 375 ml Physical Exam GENERAL: Well-nourished, well-developed patient. SKIN: Warm and dry. HEAD: Normocephalic. EYES: No scleral icterus. No injection or drainage. NECK: Supple, trachea midline. No JVD or lymphadenopathy. CARDIOVASCULAR: Regular rate and rhythm 3/6SEM NO gallops, or rubs. RESPIRATORY: Breath sounds equal bilaterally. No accessory muscle use. GASTROINTESTINAL: Abdomen soft, non-tender, nondistended. EXTREMITIES: No cyanosis, or edema. NEUROLOGICAL: Awake, alert, and oriented x 3. Non-focal. Laboratory Laboratory Tests Test 10/22/17 18:08 10/22/17 19:32 10/22/17 20:06 10/22/17 23:23 White Blood Count 6.7 TH/MM3 Red Blood Count 4.37 MIL/MM3 Hemoglobin 13.2 GM/DL Hematocrit 39.4 % Mean Corpuscular Volume 90.0 FL Mean Corpuscular Hemoglobin 30.1 PG Mean Corpuscular Hemoglobin Concent 33.4 % Red Cell Distribution Width 14.6 % Platelet Count 142 TH/MM3 Mean Platelet Volume 8.3 FL Nasal Screen MRSA (PCR) MRSA NOT DETECTED Activated Partial Thromboplast Time 92.0 SEC 53.9 SEC Test 10/23/17 03:43 10/23/17 07:30 10/23/17 07:48 White Blood Count 7.1 TH/MM3 Red Blood Count 4.11 MIL/MM3 Hemoglobin 12.7 GM/DL Hematocrit 37.0 % Mean Corpuscular Volume 90.1 FL Mean Corpuscular Hemoglobin 30.8 PG Mean Corpuscular Hemoglobin Concent 34.2 % Red Cell Distribution Width 14.6 % Platelet Count 134 TH/MM3 Mean Platelet Volume 8.4 FL Neutrophils (%) (Auto) 76.5 % Lymphocytes (%) (Auto) 11.5 % Monocytes (%) (Auto) 9.1 % Eosinophils (%) (Auto) 2.3 % Basophils (%) (Auto) 0.6 % Neutrophils # (Auto) 5.4 TH/MM3 Lymphocytes # (Auto) 0.8 TH/MM3 Monocytes # (Auto) 0.6 TH/MM3 Eosinophils # (Auto) 0.2 TH/MM3 Basophils # (Auto) 0.0 TH/MM3 CBC Comment DIFF FINAL Differential Comment Blood Urea Nitrogen 19 MG/DL Creatinine 1.26 MG/DL Random Glucose 95 MG/DL Calcium Level 8.4 MG/DL Sodium Level 137 MEQ/L Potassium Level 3.5 MEQ/L Chloride Level 103 MEQ/L Carbon Dioxide Level 27.0 MEQ/L Anion Gap 7 MEQ/L Estimat Glomerular Filtration Rate 54 ML/MIN Urine Color YELLOW Urine Turbidity CLEAR Urine pH 6.0 Urine Specific [place] 1.045 Urine Protein TRACE mg/dL Urine Glucose (UA) NEG mg/dL Urine Ketones TRACE mg/dL Urine Occult Blood SMALL Urine Nitrite NEG Urine Bilirubin NEG Urine Urobilinogen LESS THAN 2.0 MG/DL Urine Leukocyte Esterase NEG Urine RBC 6 /hpf Urine WBC 1 /hpf Urine Mucus FEW /lpf Microscopic Urinalysis Comment CULT NOT INDICATED Activated Partial Thromboplast Time 50.6 SEC Imaging Last Impressions Chest X-Ray 10/22/17 0000 Signed Impressions: Service Date/Time: October 07:57 - CONCLUSION: Lungs are grossly clear. Left subclavian pacer in good position. Aorta remains quite tortuous and prominent Jigar Donato MD Assessment and Plan Problem List: (1) CAD (coronary artery disease) ICD Codes: I25.10 - Atherosclerotic heart disease of [place] coronary artery without angina pectoris Plan: s/p high risk PCI to distal and proximal LAD No events overnight IABP 2:1 all night Afebrile, hemodynamically stable and chest pain free Recommendations: 1. Cont ASA and Plavix 2. D/C IABP 3. Cont cardiac home medications (2) Aortic stenosis, severe ICD Codes: I35.0 - Nonrheumatic aortic (valve) stenosis (3) Ischemic cardiomyopathy ICD Codes: I25.5 - Ischemic cardiomyopathy Juan Francisco Munoz MD Oct 23, 2017 10:50
--- NOTE | 2017-10-23 12:58 | EKG ---
Date Performed: 10/23/2017 Time Performed: 05:20:52 PTAGE: 87 years EKG: Sinus rhythm Extensive infarct - age undetermined Abnormal ECG No significant change from prior electrocardiogram . PREVIOUS TRACING : 10/22/2017 08.45 DOCTOR: Asher Vasquez Interpretating Date/Time 10/23/2017 12:57:02
[2017-10-23] MEDS ORDERED: ALPRAZolam 0.25 MG TAB PO PRN (18:45)
[2017-10-23] MEDS: traZODone HCL 50 MG TAB PO SCH (21:20)
[2017-10-23] MEDS: ATORVASTATIN 80 MG TAB PO SCH (21:20)
[2017-10-23] MEDS: TAMSULOSIN HCL 0.4 MG CAP PO SCH (21:21)
[2017-10-24] VITALS (9 sets, daily range): BP systolic 120–142; BP diastolic 58–69; PULSE 68–90; RESP 16–17; TEMP 98–98.7; O2SAT 97–98
[2017-10-24] MEDS: DILTIAZEM-CD 120 MG CAP ER PO SCH (08:10)
[2017-10-24] MEDS: CHOLECALCIFEROL (VIT D3) 1000 UNIT TAB PO SCH (08:11)
[2017-10-24] MEDS: CLOPIDOGREL 75 MG TAB PO SCH (08:11)
[2017-10-24] MEDS: CARVEDILOL 3.125 MG TAB PO SCH (08:11)
[2017-10-24] MEDS: ASPIRIN 81 MG CHEW TAB PO SCH (08:11)
[2017-10-24] MEDS: busPIRone HCL 5 MG TAB PO SCH (08:12)
[2017-10-24] MEDS: FAMOTIDINE 20 MG/2 ML VIAL IV PUSH SCH (08:13)
--- NOTE | 2017-10-24 09:14 | PD.CARD.PN ---
Subjective Subjective Remarks no overnight events no complaints Objective Medications Current Medications Medications (Trade) Dose Ordered Sig/Eddy Route Start Time Stop Time Status Last Admin Sodium Chloride 1,000 ml @ 0 mls/hr Q0M IV 10/22/17 07:45 Sodium Chloride 1,000 ml @ 30 mls/hr Q24H IV 10/22/17 08:00 (Aspirin) 325 mg HAND INSERTER OPERATOR PO 10/22/17 08:00 10/25/17 07:59 (Tylenol) 325 mg Q4H PRN PO 10/22/17 13:30 (Aspirin Chew) 81 mg DAILY PO 10/23/17 09:00 10/24/17 08:11 (Plavix) 75 mg DAILY PO 10/23/17 09:00 10/24/17 08:11 (Atropine Inj) 0.5 mg UNSCH PRN IV PUSH 10/22/17 13:30 (Zofran Inj) 4 mg Q4H PRN IV PUSH 10/22/17 13:30 10/22/17 22:27 (Coreg) 3.125 mg BID PO 10/22/17 21:00 10/24/17 08:11 (Lipitor) 80 mg HS PO 10/22/17 21:00 10/23/17 21:20 (Buspar) 15 mg BID PO 10/22/17 21:00 10/24/17 08:12 (Vitamin D3) 2,000 units DAILY PO 10/23/17 09:00 10/24/17 08:11 (Cardizem Cd) 120 mg DAILY PO 10/23/17 09:00 10/24/17 08:10 (Flomax) 0.4 mg HS PO 10/22/17 21:00 10/23/17 21:21 (Desyrel) 50 mg HS PO 10/22/17 21:00 10/23/17 21:20 Sodium Chloride 1,000 ml @ 30 mls/hr Q24H IV 10/22/17 13:45 10/22/17 19:00 (Benadryl) 50 mg HAND INSERTER OPERATOR PO 10/22/17 13:45 10/25/17 13:44 Heparin Sodium/ Dextrose 250 ml @ 10 mls/hr TITRATE PRN IV 10/22/17 16:45 (Heparin Inj) 5,000 units UNSCH PRN IV PUSH 10/22/17 16:45 (Heparin Inj) 2,500 units UNSCH PRN IV PUSH 10/22/17 16:45 (Duoneb Neb) 1 ampule Q6HR NEB PRN NEB 10/22/17 19:30 (Pepcid Inj) 10 mg Q12H IV PUSH 10/22/17 21:00 10/24/17 08:13 Vital Signs / I&O Vital Signs Date Time Temp Pulse Resp B/P (MAP) Pulse Ox O2 Delivery O2 Flow Rate FiO2 10/24/17 08:02 Room Air 10/24/17 07:59 98.0 74 17 142/69 (93) 98 10/24/17 04:48 Room Air 10/24/17 04:00 74 10/24/17 03:00 98.7 76 16 120/58 (78) 98 10/24/17 02:00 78 10/24/17 01:00 90 10/24/17 00:48 Room Air 10/24/17 00:00 70 10/24/17 00:00 98.6 79 16 123/64 (83) 97 10/23/17 23:00 83 10/23/17 22:00 76 10/23/17 21:00 82 10/23/17 20:30 98.6 83 16 139/67 (91) 96 10/23/17 20:30 Room Air 10/23/17 20:00 82 10/23/17 19:00 86 10/23/17 15:45 Room Air 10/23/17 15:45 74 10/23/17 15:45 98.4 74 16 133/74 (93) 96 10/23/17 12:00 97.8 75 16 125/67 (86) 94 10/23/17 12:00 Room Air 10/23/17 12:00 82 10/23/17 10:00 147/41 (113) I/O 10/23/17 10/23/17 10/23/17 10/24/17 10/24/17 10/24/17 07:00 15:00 23:00 07:00 15:00 23:00 Intake Total 460 ml 600 ml 400 ml Output Total 375 ml 625 ml Balance 85 ml -25 ml 400 ml Intake Oral 460 ml 600 ml 400 ml Output Urine Total 375 ml 625 ml # Voids 3 3 # Bowel Movements 0 Physical Exam GENERAL: Well-nourished, well-developed patient. SKIN: Warm and dry. HEAD: Normocephalic. EYES: No scleral icterus. No injection or drainage. NECK: Supple, trachea midline. No JVD or lymphadenopathy. CARDIOVASCULAR: Regular rate and rhythm 3/6SEM NO gallops, or rubs. RESPIRATORY: Breath sounds equal bilaterally. No accessory muscle use. GASTROINTESTINAL: Abdomen soft, non-tender, nondistended. EXTREMITIES: No cyanosis, or edema. NEUROLOGICAL: Awake, alert, and oriented x 3. Non-focal. Laboratory Laboratory Tests Test 10/23/17 13:45 Activated Partial Thromboplast Time 26.7 SEC Assessment and Plan Problem List: (1) CAD (coronary artery disease) ICD Codes: I25.10 - Atherosclerotic heart disease of [place] coronary artery without angina pectoris Plan: s/p high risk PCI to distal and proximal LAD No events overnight Off IABP 2:1 Afebrile, hemodynamically stable and chest pain free Ambulating without difficulty Recommendations: 1. Cont ASA and Plavix 2. Cont cardiac home medications 3. Stable to be d/c home today (2) Aortic stenosis, severe ICD Codes: I35.0 - Nonrheumatic aortic (valve) stenosis (3) Ischemic cardiomyopathy ICD Codes: I25.5 - Ischemic cardiomyopathy Juan Francisco Munoz MD Oct 24, 2017 09:14
[2017-10-24] MEDS ORDERED: ASPI81 PO (09:19)
[2017-10-24] MEDS ORDERED: ISOS30TA3 PO (09:19)
--- NOTE | 2017-10-24 09:24 | HHI.DS ---
Discharge Summary Admission Date Oct 22, 2017 at 14:01 Discharge Date: Oct 24, 2017 Admitting Diagnosis CAD Low Flow Low Gradient Severe Aortic Stenosis Chronic systolic Heart Failure (1) CAD (coronary artery disease) Diagnosis: Principal ICD Codes: I25.10 - Atherosclerotic heart disease of [place] coronary artery without angina pectoris (2) Ischemic cardiomyopathy Diagnosis: Secondary ICD Codes: I25.5 - Ischemic cardiomyopathy (3) Aortic stenosis, severe Diagnosis: Secondary ICD Codes: I35.0 - Nonrheumatic aortic (valve) stenosis (4) PAD (peripheral artery disease) Diagnosis: Secondary ICD Codes: I73.9 - Peripheral vascular disease, unspecified Procedures Successful PCI to Mid and distal LAD Brief History 87 y/o with severe , complaints of SOB on minimal exertion and chest pain. CBC/BMP: 10/23/17 0343 10/23/17 0343 Significant Findings Laboratory Tests Test 10/22/17 07:40 10/22/17 18:08 10/22/17 19:32 10/22/17 20:06 Monocytes (%) (Auto) 9.5 % (0.0-8.0) Eosinophils (%) (Auto) 7.1 % (0.0-4.0) Eosinophils # (Auto) 0.5 TH/MM3 (0-0.4) Creatinine 1.40 MG/DL (0.60-1.30) Random Glucose 119 MG/DL (74-106) Estimat Glomerular Filtration Rate 48 ML/MIN (>89) Red Blood Count 4.37 MIL/MM3 (4.50-5.90) Platelet Count 142 TH/MM3 (150-450) Activated Partial Thromboplast Time 92.0 SEC (24.3-30.1) Test 10/22/17 23:23 10/23/17 03:43 10/23/17 07:30 10/23/17 07:48 Activated Partial Thromboplast Time 53.9 SEC (24.3-30.1) 50.6 SEC (24.3-30.1) Red Blood Count 4.11 MIL/MM3 (4.50-5.90) Hemoglobin 12.7 GM/DL (13.0-17.0) Hematocrit 37.0 % (39.0-51.0) Platelet Count 134 TH/MM3 (150-450) Neutrophils (%) (Auto) 76.5 % (16.0-70.0) Monocytes (%) (Auto) 9.1 % (0.0-8.0) Lymphocytes # (Auto) 0.8 TH/MM3 (1.0-4.8) Blood Urea Nitrogen 19 MG/DL (7-18) Calcium Level 8.4 MG/DL (8.5-10.1) Estimat Glomerular Filtration Rate 54 ML/MIN (>89) Urine Specific [place] 1.045 (1.002-1.035) Urine Ketones TRACE mg/dL (NEG) Urine Occult Blood SMALL (NEG) Urine RBC 6 /hpf (0-3) Urine Mucus FEW /lpf (OCC) Test 10/23/17 13:45 Imaging Last Impressions Chest X-Ray 10/22/17 0000 Signed Impressions: Service Date/Time: October 07:57 - CONCLUSION: Lungs are grossly clear. Left subclavian pacer in good position. Aorta remains quite tortuous and prominent Jigar Donato MD PE at Discharge GENERAL: Well-nourished, well-developed patient. SKIN: Warm and dry. HEAD: Normocephalic. EYES: No scleral icterus. No injection or drainage. NECK: Supple, trachea midline. No JVD or lymphadenopathy. CARDIOVASCULAR: Regular rate and rhythm without murmurs, gallops, or rubs. RESPIRATORY: Breath sounds equal bilaterally. No accessory muscle use. GASTROINTESTINAL: Abdomen soft, non-tender, nondistended. EXTREMITIES: No cyanosis, or edema. NEUROLOGICAL: Awake, alert, and oriented x 3. Non-focal. Hospital Course [place] Stress Echo confirm severity LHC showed significant stenosis of distal LAD, which was stented as well as the Mid LAD Started on ASA and Plavix Ambulating without difficulty, chest pain free Pt Condition on Discharge: Good Discharge Disposition: Discharge Home Discharge Instructions DIET: Follow Instructions for: Heart Healthy Diet Activities you can perform: Weight Bearing as Ankit New Medications: Isosorbide Mononitrate ER (Isosorbide Mononitrate ER) 30 Mg Chet 30 MG PO DAILY for Prevent Chest Pain, #30 TAB 0 Refills Aspirin (Tgt Aspirin) 81 Mg Chw 81 MG PO DAILY for Angina for 30 Days, #30 EA 9 Refills Continued Medications: Atorvastatin (Atorvastatin) 80 Mg Tab 80 MG PO HS for Cholesterol Management, #30 TAB 0 Refills Buspirone (Buspirone) 15 Mg Tab 15 MG PO BID for Anxiety, TAB 0 Refills Carvedilol (Carvedilol) 3.125 Mg Tab 3.125 MG PO BID, #60 TAB 0 Refills Cholecalciferol (Vitamin D3) 2,000 Unit Cap 2000 UNITS PO DAILY for Nutritional Supplement, #1 BOTTLE 0 Refills Diltiazem CD 24 HR (Cardizem CD 24 HR) 120 Mg Caper 120 MG PO DAILY, #30 CAP 0 Refills Furosemide (Furosemide) 40 Mg Tab 40 MG PO BID, #60 TAB 0 Refills Potassium Chloride ER (Klor-Con 10) 10 Meq Tab 10 MEQ PO BID for Electrolyte Replacement, #60 TAB 0 Refills Tamsulosin (Tamsulosin) 0.4 Mg Cap 0.4 MG PO HS for Manage Prostate Problems, #30 CAP 0 Refills Trazodone (Trazodone) 50 Mg Tab 50 MG PO HS for Control Depression, #30 TAB 0 Refills Discontinued Medications: Aspirin (Aspirin) 325 Mg Tab 325 MG PO DAILY, #30 TAB 0 Refills Juan Francisco Munoz MD Oct 24, 2017 09:24
[2017-10-24] MEDS ORDERED: PLAV75TA29 PO (10:30)
--- NOTE | 2017-10-24 10:30 | HHI.DS ---
Discharge Summary Admission Date Oct 22, 2017 at 14:01 Admitting Diagnosis (1) CAD (coronary artery disease) Diagnosis: Principal ICD Codes: I25.10 - Atherosclerotic heart disease of [place] coronary artery without angina pectoris (2) Ischemic cardiomyopathy Diagnosis: Secondary ICD Codes: I25.5 - Ischemic cardiomyopathy (3) Aortic stenosis, severe Diagnosis: Secondary ICD Codes: I35.0 - Nonrheumatic aortic (valve) stenosis (4) PAD (peripheral artery disease) Diagnosis: Secondary ICD Codes: I73.9 - Peripheral vascular disease, unspecified Procedures Successful PCI to Mid and distal LAD Brief History 87 y/o with severe , complaints of SOB on minimal exertion and chest pain. CBC/BMP: 10/23/17 0343 10/23/17 0343 Significant Findings Laboratory Tests Test 10/22/17 07:40 10/22/17 18:08 10/22/17 19:32 10/22/17 20:06 Monocytes (%) (Auto) 9.5 % (0.0-8.0) Eosinophils (%) (Auto) 7.1 % (0.0-4.0) Eosinophils # (Auto) 0.5 TH/MM3 (0-0.4) Creatinine 1.40 MG/DL (0.60-1.30) Random Glucose 119 MG/DL (74-106) Estimat Glomerular Filtration Rate 48 ML/MIN (>89) Red Blood Count 4.37 MIL/MM3 (4.50-5.90) Platelet Count 142 TH/MM3 (150-450) Activated Partial Thromboplast Time 92.0 SEC (24.3-30.1) Test 10/22/17 23:23 10/23/17 03:43 10/23/17 07:30 10/23/17 07:48 Activated Partial Thromboplast Time 53.9 SEC (24.3-30.1) 50.6 SEC (24.3-30.1) Red Blood Count 4.11 MIL/MM3 (4.50-5.90) Hemoglobin 12.7 GM/DL (13.0-17.0) Hematocrit 37.0 % (39.0-51.0) Platelet Count 134 TH/MM3 (150-450) Neutrophils (%) (Auto) 76.5 % (16.0-70.0) Monocytes (%) (Auto) 9.1 % (0.0-8.0) Lymphocytes # (Auto) 0.8 TH/MM3 (1.0-4.8) Blood Urea Nitrogen 19 MG/DL (7-18) Calcium Level 8.4 MG/DL (8.5-10.1) Estimat Glomerular Filtration Rate 54 ML/MIN (>89) Urine Specific [place] 1.045 (1.002-1.035) Urine Ketones TRACE mg/dL (NEG) Urine Occult Blood SMALL (NEG) Urine RBC 6 /hpf (0-3) Urine Mucus FEW /lpf (OCC) Test 10/23/17 13:45 PE at Discharge GENERAL: Well-nourished, well-developed patient. SKIN: Warm and dry. HEAD: Normocephalic. EYES: No scleral icterus. No injection or drainage. NECK: Supple, trachea midline. No JVD or lymphadenopathy. CARDIOVASCULAR: Regular rate and rhythm without murmurs, gallops, or rubs. RESPIRATORY: Breath sounds equal bilaterally. No accessory muscle use. GASTROINTESTINAL: Abdomen soft, non-tender, nondistended. EXTREMITIES: No cyanosis, or edema. NEUROLOGICAL: Awake, alert, and oriented x 3. Non-focal. Pt Condition on Discharge: Good Discharge Disposition: Discharge Home Discharge Instructions DIET: Follow Instructions for: Heart Healthy Diet Activities you can perform: Weight Bearing as Ankit New Medications: Isosorbide Mononitrate ER (Isosorbide Mononitrate ER) 30 Mg Chet 30 MG PO DAILY for Prevent Chest Pain, #30 TAB 0 Refills Aspirin (Tgt Aspirin) 81 Mg Chw 81 MG PO DAILY for Angina for 30 Days, #30 EA 9 Refills Clopidogrel (Plavix) 75 Mg Tab 75 MG PO DAILY for Angina for 30 Days, #30 TAB Continued Medications: Atorvastatin (Atorvastatin) 80 Mg Tab 80 MG PO HS for Cholesterol Management, #30 TAB 0 Refills Buspirone (Buspirone) 15 Mg Tab 15 MG PO BID for Anxiety, TAB 0 Refills Carvedilol (Carvedilol) 3.125 Mg Tab 3.125 MG PO BID, #60 TAB 0 Refills Cholecalciferol (Vitamin D3) 2,000 Unit Cap 2000 UNITS PO DAILY for Nutritional Supplement, #1 BOTTLE 0 Refills Diltiazem CD 24 HR (Cardizem CD 24 HR) 120 Mg Caper 120 MG PO DAILY, #30 CAP 0 Refills Furosemide (Furosemide) 40 Mg Tab 40 MG PO BID, #60 TAB 0 Refills Potassium Chloride ER (Klor-Con 10) 10 Meq Tab 10 MEQ PO BID for Electrolyte Replacement, #60 TAB 0 Refills Tamsulosin (Tamsulosin) 0.4 Mg Cap 0.4 MG PO HS for Manage Prostate Problems, #30 CAP 0 Refills Trazodone (Trazodone) 50 Mg Tab 50 MG PO HS for Control Depression, #30 TAB 0 Refills Discontinued Medications: Aspirin (Aspirin) 325 Mg Tab 325 MG PO DAILY, #30 TAB 0 Refills Juan Francisco Munoz MD Oct 24, 2017 10:30
--- NOTE | 2017-10-26 10:15 | RSPPFT ---
DATE OF PROCEDURE: 10/22/17 COMMENTS: Spirometry shows FVC of 2.4 at 103% of predicted, FEV1 of 1.8 at 99%, FEV1/FVC ratio is normal. Flow is decreased at FEF 25 but normal at FEF 50 and FEF 75 and FEF 25-75. Flow volume loop indicates a normal pattern. IMPRESSION: 1. Normal spirometry. 2. Post-bronchodilator study was not done.
== END 2017-10-24 11:15 | disposition home or self-care (01) | DRG 270 ==
LOC: HDOC 06:59 → HDIC 07:01 → HDOC 13:58 → HCVI 14:01 → HCPC 10-23 18:00
PROVIDERS: ADMIT Radiology Vascular & Interventional Radiology; ATTEND Radiology Vascular & Interventional Radiology
PROC: 5A02210 Assistance with Cardiac Output using Balloon Pump, Continuous (ICD-10-PCS; 2017-10-22)
PROC: 4A023N7 Measurement of Cardiac Sampling and Pressure, Left Heart, Percutaneous Approach (ICD-10-PCS; 2017-10-22)
PROC: B2111ZZ Fluoroscopy of Multiple Coronary Arteries using Low Osmolar Contrast (ICD-10-PCS; 2017-10-22)
PROC: B41F1ZZ Fluoroscopy of Right Lower Extremity Arteries using Low Osmolar Contrast (ICD-10-PCS; 2017-10-22)
PROC: 027036Z Dilation of Coronary Artery, One Artery with Three Drug-eluting Intraluminal Devices, Percutaneous Approach (ICD-10-PCS; principal; 2017-10-22 10:00)
DX: I25.118 Atherosclerotic heart disease of native coronary artery with other forms of angina pectoris (principal); I25.42 Coronary artery dissection; I50.22 Chronic systolic (congestive) heart failure; I13.0 Hypertensive heart and chronic kidney disease with heart failure and stage 1 through stage 4 chronic kidney disease, or unspecified chronic kidney disease; I25.84 Coronary atherosclerosis due to calcified coronary lesion; I25.82 Chronic total occlusion of coronary artery; I35.0 Nonrheumatic aortic (valve) stenosis; I25.5 Ischemic cardiomyopathy; J44.9 Chronic obstructive pulmonary disease, unspecified; I25.2 Old myocardial infarction; N18.2 Chronic kidney disease, stage 2 (mild); E78.5 Hyperlipidemia, unspecified; I73.9 Peripheral vascular disease, unspecified; F41.9 Anxiety disorder, unspecified; F17.210 Nicotine dependence, cigarettes, uncomplicated; E55.9 Vitamin D deficiency, unspecified; I70.0 Atherosclerosis of aorta; G47.00 Insomnia, unspecified; Z95.810 Presence of automatic (implantable) cardiac defibrillator
CPT/HCPCS: 33967; 71045; 80048; 81001; 82040; 85002; 85025; 85027; 85610; 85730; 86850; 86900; 86901; 87641; 92928; 93005; 93350; 93454; 94010; 99152; 99153; C1725; C1751; C1769; C1874; C1887; C1893; J1250; J1644; J2250; J2370; J2405; J3010; J7030; Q9967

== ENCOUNTER 2018-02-02 15:37 | Inpatient (IN) | payer OTHER, MEDICARE ==
[~2018-02-02] VITALS: Ht 172.7 cm; Wt 62.9 kg
[2018-02-02] VITALS (16 sets, daily range): BP systolic 91–138; BP diastolic 51–87; PULSE 60–96; RESP 12–24; TEMP 96.4–98.6; O2SAT 96–100
[~2018-02-02 15:37] MED LIST changes: +ATOR80TA45 PO; +BUSP15TA PO; +CARD120C4 PO; -CARD240C6 PO; +CARV3.12 PO; +FURO40TA PO; +ISOS30TA3 PO; +KLOR10TA PO; -LISI-360 PO; -MELA5TAB8 PO; +PLAV75TA29 PO; -PRAV80 PO; +TAMS0.4C4 PO; -TERA5CAP3 PO; +TRAZ50TA12 PO; -VITA-13 PO; +VITA2000 PO
[2018-02-02] MEDS ORDERED: SODIUM CHLORIDE 0.9% FLUSH 10 ML FLUSH IVF PRN (15:45)
[2018-02-02 16:16] LABS: AUTOMATED NEUTROPHIL # 3.3 TH/MM3 (1.8-7.7); BASOPHIL % 0.5 % (0.0-2.0); EOSINOPHIL % 0.5 % (0.0-4.0); HEMOGLOBIN 11.9 GM/DL (13.0-17.0); LYMPH % 16.4 % (9.0-44.0); LYMPHOCYTE # 0.8 TH/MM3 (1.0-4.8); MEAN CELL VOLUME 88.2 FL (80.0-100.0); MEAN CORPUSCULAR HEMOGLOBIN 29.1 PG (27.0-34.0); MEAN PLATELET VOLUME 10.1 FL (7.0-11.0); MONO % 12.7 % (0.0-8.0); MONOCYTE # 0.6 TH/MM3 (0-0.9); NEUT % 69.9 % (16.0-70.0); PLATELET COUNT 124 TH/MM3 (150-450); RED BLOOD COUNT 4.08 MIL/MM3 (4.50-5.90); RED CELL DISTRIBUTION WIDTH 16.4 % (11.6-17.2); WHITE BLOOD COUNT 4.8 TH/MM3 (4.0-11.0)
[2018-02-02 16:23] LABS: INTERNATIONAL NORMALIZED RATIO 1.6 RATIO; PROTHROMBIN TIME - PATIENT 16.3 SEC (9.8-11.6)
--- NOTE | 2018-02-02 16:25 | RADRPT ---
EXAM DATE/TIME: 02/02/2018 15:50 [facility] COMPARISON: CHEST SINGLE AP, October 22, 2017, 7:57. INDICATIONS : Chest pain. MEDICAL HISTORY : None. SURGICAL HISTORY : Pacemaker. ENCOUNTER: Initial ACUITY: 1 day PAIN SCORE: 5/10 LOCATION: middle chest. FINDINGS: There are bilateral consolidative infiltrates in the lower lungs possible loss of delineation of both hemidiaphragms. [place] cardiomegaly and tortuosity of the thoracic aorta similar to prior. Car diac pacer leads stable in position. CONCLUSION: Bilateral lower lobe consolidation. Blayne Sanchez MD on February 02, 2018 at 16:22 Board Certified Radiologist. This report was verified electronically.
[2018-02-02] MEDS ORDERED: PIPERACIL-TAZO 4.5 GM PREMIX 100 ML IV ONE (16:30)
[2018-02-02] MEDS ORDERED: VANCOMYCIN INJ 1,000 MG in SODIUM CHLOR 0.9% 250 ML INJ 250 ML IV ONE (16:30)
[2018-02-02] MEDS ORDERED: FUROSEMIDE 40 MG/4 ML VIAL IV PUSH ONE (16:30)
--- NOTE | 2018-02-02 16:33 | PD ---
HPI Chief Complaint: STEMI Alert Time Seen by Provider: 15:44 Travel History International Travel<30 days: No Contact w/Intl Traveler<30days: No Traveled to known affect area: No History of Present Illness HPI Is an 87-year-old man who presents to the emergency department complaining of chest pain. He was reportedly doing physical therapy at home when he developed the symptoms. EMS describes his initial complaint is superficial back and chest pain around the rib cage. Patient has a history of severe ischemic cardiomyopathy as well as severe aortic stenosis. He is being worked up now for TAVR. Initially was seen Dr. Rubio with [facility]. When he left using a follow-up with Dr. Orozco. He has had multiple recent admissions for congestive heart failure including a recent one in [facility]. Been back at home now. He apparently is also being evaluated by Dr. Carrizales to perform that TAVR. He had a heart cath done October 22 of this year where he had PCI to the mid and distal LAD with Dr. Rubio. He apparently is due to have a no other heart cath done this upcoming week with Dr. Carrizales for another stent in preparation for his TAVR. When he was in the hospital just recently they switched his Lasix 40 twice daily to torsemide 20 twice daily. No other complaints. History Past Medical History Narrative Medical CAD, ischemic cardiomyopathy Pacer AICD placement Severe aortic stenosis Social History Alcohol Use: Yes (OCC) Tobacco Use: No Allergies-Medications (Allergen,Severity, Reaction): Coded Allergies: No Known Allergies (Verified , 02/23/14) Reported Meds & Prescriptions Reported Meds & Active Scripts Active Plavix (Clopidogrel Bisulfate) 75 Mg Tab 75 Mg PO DAILY 30 Days Isosorbide Mononitrate ER (Isosorbide Mononitrate) 30 Mg Chet 30 Mg PO DAILY Tgt Aspirin (Aspirin) 81 Mg Chw 81 Mg PO DAILY 30 Days Reported Vitamin D3 (Cholecalciferol) 2,000 Unit Cap 2,000 Units PO DAILY Trazodone (Trazodone HCl) 50 Mg Tab 50 Mg PO HS Tamsulosin (Tamsulosin HCl) 0.4 Mg Cap 0.4 Mg PO HS Klor-Con 10 (Potassium Chloride) 10 Meq Tab 10 Meq PO BID Furosemide 40 Mg Tab 40 Mg PO BID Carvedilol 3.125 Mg Tab 3.125 Mg PO BID Cardizem CD 24 HR (Diltiazem CD 24 HR) 120 Mg Caper 120 Mg PO DAILY Buspirone (Buspirone HCl) 15 Mg Tab 15 Mg PO BID Atorvastatin (Atorvastatin Calcium) 80 Mg Tab 80 Mg PO HS Review of Systems Except as stated in HPI: all other systems reviewed are Neg Physical Exam Narrative GENERAL: Thin ill-appearing 87-year-old man, now perfused with mottling and pallor. SKIN: Focused skin exam reveals skin is cool and mottled. HEAD: Atraumatic. Normocephalic. EYES: Pupils equal and round. No scleral icterus. No injection or drainage. ENT: No nasal bleeding or discharge. Mucous membranes pink and moist. NECK: Trachea midline. No JVD. CARDIOVASCULAR: Regular rate and rhythm. Murmur is difficult to listen for due to tachypnea and loud breathing however no definite murmurs auscultated. RESPIRATORY: Tachypnea with coarse breath sounds and rales in bilateral lung villarreal. GASTROINTESTINAL: Abdomen soft, non-tender, nondistended. Hepatic and splenic margins not palpable. MUSCULOSKELETAL: No obvious deformities. Distal extremities are cool. There is no edema. Pulses are difficult to palpate. NEUROLOGICAL: Decreased alertness no obvious cranial nerve deficits. Motor grossly within normal limits. Normal speech. Data Data Last Documented VS Vital Signs Date Time Temp Pulse Resp B/P (MAP) Pulse Ox O2 Delivery O2 Flow Rate FiO2 02/02/18 16:24 92 24 117/79 (92) Nasal Cannula 3.00 02/02/18 15:47 100 02/02/18 15:40 96.4 Orders Orders Electrocardiogram (02/02/18 15:44) Complete Blood Count With Diff (02/02/18 15:44) Comprehensive Metabolic Panel (02/02/18 15:44) Magnesium (Mg) (02/02/18 15:44) Prothrombin Time / Inr (Pt) (02/02/18 15:44) Act Partial Throm Time (Ptt) (02/02/18 15:44) Troponin I (02/02/18 15:44) Chest, Single Ap (02/02/18 15:44) Ecg Monitoring (02/02/18 15:44) Iv Access Insert/Monitor (02/02/18 15:44) Oximetry (02/02/18 15:44) Oxygen Administration (02/02/18 15:44) Sodium Chloride 0.9% Flush (Ns Flush) (02/02/18 15:45) Lactic Acid (02/02/18 15:54) Arterial Blood Gas (Abg) (02/02/18 ) Furosemide Inj (Lasix Inj) (02/02/18 16:30) Blood Culture (02/02/18 16:30) Piperacil-Tazo 4.5 Gm Premix (Zosyn 4.5 (02/02/18 16:30) Vancomycin Inj (Vancomycin Inj) (02/02/18 16:30) Admit To Inpatient (02/02/18 ) Code Status (02/02/18 16:50) Vital Signs (Adult) SHERMAN.Q1H (02/02/18 16:50) Activity Bed Rest (02/02/18 16:50) Elevate Head Of Bed (02/02/18 16:50) Diet Npo (02/02/18 Dinner) Sodium Chloride 0.9% Flush (Ns Flush) (02/02/18 17:00) Sodium Chloride 0.9% Flush (Ns Flush) (02/02/18 21:00) Acetaminophen (Tylenol) (02/02/18 17:00) Famotidine Inj (Pepcid Inj) (02/02/18 21:00) Artificial Tears Opth Soln (Tears Natura (02/02/18 18:00) Ondansetron Inj (Zofran Inj) (02/02/18 17:00) Albuterol-Ipratropium Neb (Duoneb Neb) (02/02/18 22:00) Albuterol-Ipratropium Neb (Duoneb Neb) (02/02/18 17:00) Complete Blood Count With Diff (02/03/18 04:00) Comprehensive Metabolic Panel (02/03/18 04:00) Prothrombin Time / Inr (Pt) (02/03/18 04:00) Magnesium (Mg) (02/03/18 04:00) Phosphorus (Po4) (02/03/18 04:00) Lactic Acid (02/03/18 04:00) Blood Culture (02/02/18 16:50) Sputum Culture And Gram Stain (02/02/18 16:50) Chest, Single Ap (02/03/18 ) Consult Cardiology (02/02/18 ) Apparel Patternmaker / Telemetry SHERMAN.Q8H (02/02/18 16:50) Scd Bilateral/Knee High SHERMAN.BID (02/02/18 16:50) ^ Initiate Protocol (02/02/18 16:50) Instruction (02/02/18 16:50) Nursing Information ([facility] (02/02/18 17:00) Chlorhexidine 2% Cloth (Chlorhexidine 2% (02/03/18 04:00) Chlorhexidine 2% Cloth (Chlorhexidine 2% (02/02/18 17:00) Mrsa Pcr Surveillance (02/02/18 16:50) Docusate Sodium-Senna (Nia-Colace) (02/02/18 21:00) Magnesium Hydroxide Liq (Milk Of Magnesi (02/02/18 17:00) Sennosides (Senokot) (02/02/18 17:00) Bisacodyl Supp (Dulcolax Supp) (02/02/18 17:00) Lactulose Liq (Lactulose Liq) (02/02/18 17:00) Inpatient Certification (02/02/18 ) Sodium (Na) (02/02/18 23:59) Sodium (Na) (02/03/18 05:59) Sodium (Na) (02/03/18 11:59) Sodium (Na) (02/03/18 17:59) Sodium (Na) (02/03/18 23:59) Sodium (Na) (02/04/18 05:59) Sodium (Na) (02/04/18 11:59) Sodium (Na) (02/04/18 17:59) Insulin Aspart Supplemtl Scale (Novolog (02/02/18 17:00) Bedside Glucose SHERMAN.CSUGAR&03 (02/02/18 16:57) Blood Glucose Goal (Criteria) (02/02/18 16:57) Hypoglycemia 70 Mg/Dl Or < (02/02/18 16:57) Notify Dr: Other (02/02/18 16:57) Dextrose 50% In Ayde (Vial) Inj (D50w (Vi (02/02/18 17:00) Glucagon Inj (Glucagon Inj) (02/02/18 17:00) B-Type Natriuretic Peptide (02/03/18 06:00) B-Type Natriuretic Peptide (02/02/18 16:59) Elevate Head Of Bed (02/02/18 17:00) Chlorhexidine 0.12% Liq (Peridex 0.12% L (02/02/18 20:00) Oral Hygiene Kit (02/02/18 18:00) Restraints Non-Violent SHERMAN.Q3H (02/02/18 17:00) Ventilator Weaning Readiness SHERMAN.DAILY@0800 (02/02/18 17:00) Fentanyl Drip (Fentanyl Drip) (02/02/18 17:00) Consult Palliative Care (02/02/18 ) Cefepime Inj (Maxipime Inj) (02/02/18 18:00) Azithromycin Inj (Zithromax Inj) (02/02/18 18:00) Electrocardiogram (02/02/18 16:17) Etomidate Inj (Amidate Inj) (02/02/18 17:13) Admit Order (Ed Use Only) (02/02/18 ) Succinylcholine Inj (Quelicin Inj) (02/02/18 17:13) Etomidate Inj (Amidate Inj) (02/02/18 17:14) Propofol 1000 Mg/100 Ml Inj (Diprivan 10 (02/02/18 17:15) Propofol 500 Mg/50 Ml Inj (Diprivan 500 (02/02/18 17:14) Labs Laboratory Tests Test 02/02/18 15:50 02/02/18 16:19 02/02/18 16:20 White Blood Count 4.8 TH/MM3 Red Blood Count 4.08 MIL/MM3 Hemoglobin 11.9 GM/DL Hematocrit 36.0 % Mean Corpuscular Volume 88.2 FL Mean Corpuscular Hemoglobin 29.1 PG Mean Corpuscular Hemoglobin Concent 33.0 % Red Cell Distribution Width 16.4 % Platelet Count 124 TH/MM3 Mean Platelet Volume 10.1 FL Neutrophils (%) (Auto) 69.9 % Lymphocytes (%) (Auto) 16.4 % Monocytes (%) (Auto) 12.7 % Eosinophils (%) (Auto) 0.5 % Basophils (%) (Auto) 0.5 % Neutrophils # (Auto) 3.3 TH/MM3 Lymphocytes # (Auto) 0.8 TH/MM3 Monocytes # (Auto) 0.6 TH/MM3 Eosinophils # (Auto) 0.0 TH/MM3 Basophils # (Auto) 0.0 TH/MM3 CBC Comment DIFF FINAL Differential Comment Prothrombin Time 16.3 SEC Prothromb Time International Ratio 1.6 RATIO Activated Partial Thromboplast Time 26.3 SEC Blood Urea Nitrogen 25 MG/DL Creatinine 2.00 MG/DL Random Glucose 107 MG/DL Total Protein 6.3 GM/DL Albumin 3.3 GM/DL Calcium Level 8.8 MG/DL Magnesium Level 2.1 MG/DL Alkaline Phosphatase 117 U/L Aspartate Amino Transf (AST/SGOT) 251 U/L Alanine Aminotransferase (ALT/SGPT) 144 U/L Total Bilirubin 1.4 MG/DL Sodium Level 122 MEQ/L Potassium Level 6.6 MEQ/L Chloride Level 86 MEQ/L Carbon Dioxide Level 18.8 MEQ/L Anion Gap 17 MEQ/L Estimat Glomerular Filtration Rate 32 ML/MIN Troponin I 0.05 NG/ML Blood Gas Puncture Site LT BRACHIAL Blood Gas Patient Temperature 98.6 Blood Gas HCO3 16 mmol/L Blood Gas Base Excess -7.4 mmol/L Blood Gas Oxygen Saturation 98 % Arterial Blood pH 7.46 Arterial Blood Partial Pressure CO2 23 mmHg Arterial Blood Partial Pressure O2 151 mmHG Arterial Blood Oxygen Content 16.2 Vol % Arterial Blood Carboxyhemoglobin 1.4 % Arterial Blood Methemoglobin 0.4 % Blood Gas Hemoglobin 11.6 G/DL Oxygen Delivery Device NASAL CANNULA Blood Gas Liter Flow 4 L/M Lactic Acid Level 8.7 mmol/L [facility] Medical Decision Making Medical Screen Exam Complete: Yes Emergency Medical Condition: Yes Interpretation(s) My review of initial EKG: Sinus rhythm at a rate of 97, wide QRS complex, like left bundle branch block, I do not think this is a STEMI. There is some wandering baseline with low QRS voltage in the inferior leads, again I do not think this is a STEMI. LABS: CBC remarkable for mild anemia. CMP sodium 122, potassium 6.6, elevated BUN and creatinine, bicarb 18.8, elevated total bili AST and ALT Lactate 8.7 Troponin negative ABG 7.4 03/27/151/16, base excess -7.4 Chest x-ray: Bibasilar infiltrates. Differential Diagnosis Cardiogenic shock, aortic stenosis, STEMI, ACS, volume overload or CHF exacerbation, other Narrative Course Medical decision making Is an 87-year-old man, ill-appearing with what appears to be malperfusion or early cardiogenic shock. He has some fluid on his pulmonary exam. He has known ischemic cardiomyopathy with severe aortic stenosis. Initial EKG in the field was called as a STEMI alert by EMS due to his left bundle branch block and large anterior precordial ST elevations. No chest pain now. Some respiratory distress. Mental status is a little bit waning. Will check x-ray, labs, EKG, and patient will need admission, possibly ICU. FINAL: Labs confirm severe hypoperfusion and shock, related to ischemic cardia myopathy and severe aortic stenosis. Extensive discussion with the family about goals of care and whether this is a end-stage or terminal condition. I spoke with Dr. Orozco, the patient's electrical and instrument mechanic, as well as with Dr. Dai, the ICU doctor. Family is in agreement for a trial of aggressive care, further evaluation if there is anything we can do to intervene on the heart, however patient has a living will and family would want withdrawal of aggressive care if no reversible condition is identified. Will plan for palliative care consult. Critical Care Narrative Aggregate critical care time was 50 minutes. Time to perform other separately billable procedures was not included in the critical care time. My time did not include minutes spent treating any other patients simultaneously or on activities that did not directly contribute to the patient's treatment. The services I provided to this patient were to treat and/or prevent clinically significant deterioration that could result in: , disability, unrecognized cardiogenic shock, missed IN, other I provided critical care services requiring my management, as noted below: Chart data review, documentation time, medication orders and management, vital sign assessments/reviewing monitor data, ordering and reviewing lab tests, ordering and interpreting/reviewing x-rays and diagnostic studies, care of the patient and discussion of the patient with the admitting physicians. Procedures Procedure Narrative After the risks and benefits were discussed the following procedure was performed: INTUBATION: The patient was put in optimal position for the procedure. Rapid sequence intubation was initiated by me using 20 milligrams of etomidate IV and 100 milligrams of rocuronium IV. The patient was intubated with a 8.0 cuffed endotracheal tube. Tube placement was confirmed by visualization of the tube and balloon passing through the cords, capnometry and subsequent chest x-ray. Breath sounds were equal and well aerated bilaterally postintubation. No breath sounds over stomach. Patient tolerated procedure well. Diagnosis Primary Impression: Aortic stenosis, severe Additional Impressions: Ischemic cardiomyopathy Cardiogenic shock Admitting Information Admitting Physician Requests: Admit Jigar Nascimetno MD February 02, 2018 16:33
[2018-02-02 16:39] LABS: ALBUMIN 3.3 GM/DL (3.4-5.0); ALKALINE PHOSPHATASE 117 U/L (45-117); ALT (GPT) 144 U/L (12-78); AST (GOT) 251 U/L (15-37); BICARBONATE 18.8 MEQ/L (21.0-32.0); BLOOD UREA NITROGEN 25 MG/DL (7-18); CALCIUM 8.8 MG/DL (8.5-10.1); CHLORIDE 86 MEQ/L (98-107); GLOMERULAR FILTRATION RATE 32 ML/MIN (>89); GLUCOSE,RANDOM 107 MG/DL (74-106); MAGNESIUM 2.1 MG/DL (1.5-2.5); TOTAL BILIRUBIN ADULT 1.4 MG/DL (0.2-1.0); TOTAL PROTEIN 6.3 GM/DL (6.4-8.2); TROPONIN I 0.05 NG/ML (0.02-0.05)
[2018-02-02 16:42] LABS: SODIUM (NA) 122 MEQ/L (136-145)
[2018-02-02] MEDS ORDERED: SODIUM CHLORIDE 0.9% FLUSH 10 ML FLUSH IV FLUSH PRN (17:00)
[2018-02-02] MEDS ORDERED: GLUCAGON 1 MG/ML VIAL OTHER PRN (17:00)
[2018-02-02] MEDS ORDERED: ONDANSETRON HCL 4 MG/2 ML VIAL IV PUSH PRN (17:00)
[2018-02-02] MEDS ORDERED: DEXTROSE 50% IN WATER 50 ML VIAL(D50) IV PUSH PRN (17:00)
[2018-02-02] MEDS ORDERED: CHLORHEXIDINE GLUCONATE 2 % 1 PACK (2 CLOTHS) TOP PRN (17:00)
[2018-02-02] MEDS ORDERED: SENNOSIDES 8.6 MG TAB PO PRN (17:00)
[2018-02-02] MEDS ORDERED: NURSING INFORMATION XX SCH (17:00)
[2018-02-02] MEDS ORDERED: MAGNESIUM HYDROXIDE SUSP 30 ML CUP PO PRN (17:00)
[2018-02-02] MEDS: INSULIN ASPART SUPPLEMENTAL SCALE SQ SCH ×2 (17:00→21:00)
[2018-02-02] MEDS ORDERED: RESP: ALBUTEROL 2.5 MG/IPRATROPIUM 0.5 MG NEB (PRN) INH (17:00)
[2018-02-02] MEDS ORDERED: LACTULOSE SYRUP 20 GM/30 ML CUP PO PRN (17:00)
[2018-02-02] MEDS ORDERED: BISACODYL 10 MG SUPP RECTAL PRN (17:00)
[2018-02-02] MEDS ORDERED: ACETAMINOPHEN 325 MG TAB PO PRN (17:00)
[2018-02-02] MEDS ORDERED: ETOMIDATE 40 MG/20 ML VIAL ONE ×2 (17:13→17:14)
[2018-02-02] MEDS ORDERED: SUCCINYLCHOLINE CHLORIDE 200 MG/10 ML VIAL ONE (17:13)
[2018-02-02] MEDS ORDERED: PROPOFOL 500 MG/50 ML INJ 50 ML ONE (17:14)
[2018-02-02] MEDS ORDERED: PROPOFOL 1000 MG/100 ML INJ 100 ML IV PRN (17:15)
[2018-02-02] MEDS ORDERED: ONDANSETRON HCL 4 MG/2 ML VIAL IV ONE (17:30)
[2018-02-02] MEDS: ARTIFICIAL TEARS OPTH SOLN 15 ML BTL EACH EYE SCH (18:00)
[2018-02-02] MEDS: AZITHROMYCIN INJ 500 MG in SODIUM CHLOR 0.9% 250 ML INJ 250 ML IV SCH (18:00)
--- NOTE | 2018-02-02 18:11 | HHI.HP ---
HPI Service Critical Care Medicine Primary Care Physician Non-Staff Admission Diagnosis Cardiogenic shock, congestive heart failure, aortic stenosis Diagnosis: Travel History International Travel<30 Days: No Contact w/Intl Traveler <30 Da: No Traveled to Known Affected Are: No History of Present Illness History of Present Illness HPI This is a 87-year-old man who presents to the emergency department complaining of chest pain. He was reportedly doing physical therapy at home when he developed the symptoms. EMS describes his initial complaint is superficial back and chest pain around the rib cage, discussing with family member it initially started last night and continued throughout the day progressively getting worse. the patient's has a history of severe ischemic cardiomyopathy as well as severe aortic stenosis. He is being worked up now for TAVR. Initially was seen Dr. Rubio with [facility] heart group. When he left using a follow-up with Dr. Orozco. He has had multiple recent admissions for congestive heart failure including a recent one in [facility] on 01/27/2018. he apparently is also being evaluated by Dr. Carrizales to perform that TAVR. He had a heart cath done October 22 of this year where he had PCI to the mid and distal LAD with Dr. Rubio. He apparently is due to have a no other heart cath done this upcoming week with Dr. Carrizales for another stent in preparation for his TAVR. The patient received Lasix in the ED imaging and laboratory studies reveal a lactic acid of 7. Sodium levels 122 but reviewing his records from [facility] on 01/27 his sodium level at that time was 127. The patient was tachypneic, with a respiratory rate in the 30s and was intubated. Chest x-ray is pending. Upon my evaluation the patient was intubated sedated map running in the mid 80s. Critical care medicine was consulted. History (Limited) History Past Medical History Narrative Medical CAD, ischemic cardiomyopathy Pacer AICD placement Severe aortic stenosis Social History Alcohol Use: Yes (OCC) Tobacco Use: No Allergies-Medications Allergies-Medications (Allergen,Severity, Reaction): Coded Allergies: No Known Allergies (Verified , 02/23/14) Reported Meds & Prescriptions Reported Meds & Active Scripts Active Plavix (Clopidogrel Bisulfate) 75 Mg Tab 75 Mg PO DAILY 30 Days Isosorbide Mononitrate ER (Isosorbide Mononitrate) 30 Mg Chet 30 Mg PO DAILY Tgt Aspirin (Aspirin) 81 Mg Chw 81 Mg PO DAILY 30 Days Reported Vitamin D3 (Cholecalciferol) 2,000 Unit Cap 2,000 Units PO DAILY Trazodone (Trazodone HCl) 50 Mg Tab 50 Mg PO HS Tamsulosin (Tamsulosin HCl) 0.4 Mg Cap 0.4 Mg PO HS Klor-Con 10 (Potassium Chloride) 10 Meq Tab 10 Meq PO BID Furosemide 40 Mg Tab 40 Mg PO BID Carvedilol 3.125 Mg Tab 3.125 Mg PO BID Cardizem CD 24 HR (Diltiazem CD 24 HR) 120 Mg Caper 120 Mg PO DAILY Buspirone (Buspirone HCl) 15 Mg Tab 15 Mg PO BID Atorvastatin (Atorvastatin Calcium) 80 Mg Tab 80 Mg PO HS ROS Review of Systems Except as stated in HPI: all other systems reviewed are Neg Physical Exam Vital Signs Vital Signs Date Time Temp Pulse Resp B/P (MAP) Pulse Ox O2 Delivery O2 Flow Rate FiO2 02/02/18 17:48 65 18 106/66 (79) 100 Ventilator 02/02/18 17:24 81 24 107/73 (84) Nasal Cannula 3.00 02/02/18 16:24 92 24 117/79 (92) Nasal Cannula 3.00 02/02/18 15:47 95 20 100 Nasal Cannula 2.00 02/02/18 15:46 100 Nasal Cannula 2.00 02/02/18 15:46 100 Nasal Cannula 2.00 02/02/18 15:40 96.4 96 17 96 Physical Exam GENERAL: Elderly critically ill-appearing gentleman intubated and sedated SKIN: Warm and dry. HEAD: Atraumatic. Normocephalic. EYES: Pupils equal and round. No scleral icterus. No injection or drainage. ENT: No nasal bleeding or discharge. Mucous membranes pink and moist. NECK: Trachea midline. No JVD. CARDIOVASCULAR: Normal rate, regular rhythm. RESPIRATORY: No accessory muscle use. Clear to auscultation. Breath sounds equal bilaterally. GASTROINTESTINAL: Abdomen soft, non-tender, nondistended. No guarding. MUSCULOSKELETAL: Extremities without clubbing, cyanosis, or edema. No obvious deformities. NEUROLOGICAL: Intubated and sedated. Currently on propofol infusion. No gross focal/sensory deficits. Follows commands in all 4 extremities. Laboratory Laboratory Tests Test 02/02/18 15:50 02/02/18 16:19 02/02/18 16:20 White Blood Count 4.8 Red Blood Count 4.08 Hemoglobin 11.9 Hematocrit 36.0 Mean Corpuscular Volume 88.2 Mean Corpuscular Hemoglobin 29.1 Mean Corpuscular Hemoglobin Concent 33.0 Red Cell Distribution Width 16.4 Platelet Count 124 Mean Platelet Volume 10.1 Neutrophils (%) (Auto) 69.9 Lymphocytes (%) (Auto) 16.4 Monocytes (%) (Auto) 12.7 Eosinophils (%) (Auto) 0.5 Basophils (%) (Auto) 0.5 Neutrophils # (Auto) 3.3 Lymphocytes # (Auto) 0.8 Monocytes # (Auto) 0.6 Eosinophils # (Auto) 0.0 Basophils # (Auto) 0.0 CBC Comment DIFF FINAL Differential Comment Prothrombin Time 16.3 Prothromb Time International Ratio 1.6 Activated Partial Thromboplast Time 26.3 Blood Urea Nitrogen 25 Creatinine 2.00 Random Glucose 107 Total Protein 6.3 Albumin 3.3 Calcium Level 8.8 Magnesium Level 2.1 Alkaline Phosphatase 117 Aspartate Amino Transf (AST/SGOT) 251 Alanine Aminotransferase (ALT/SGPT) 144 Total Bilirubin 1.4 Sodium Level 122 Potassium Level 6.6 Chloride Level 86 Carbon Dioxide Level 18.8 Anion Gap 17 Estimat Glomerular Filtration Rate 32 Troponin I 0.05 Blood Gas Puncture Site LT BRACHIAL Blood Gas Patient Temperature 98.6 Blood Gas HCO3 16 Blood Gas Base Excess -7.4 Blood Gas Oxygen Saturation 98 Arterial Blood pH 7.46 Arterial Blood Partial Pressure CO2 23 Arterial Blood Partial Pressure O2 151 Arterial Blood Oxygen Content 16.2 Arterial Blood Carboxyhemoglobin 1.4 Arterial Blood Methemoglobin 0.4 Blood Gas Hemoglobin 11.6 Oxygen Delivery Device NASAL CANNULA Blood Gas Liter Flow 4 Lactic Acid Level 8.7 Date/Time Source Procedure Growth Status 02/02/18 17:00 Blood Peripheral Aerobic Blood Culture Pending Received 02/02/18 17:00 Blood Peripheral Anaerobic Blood Culture Pending Received Result Diagram: 02/02/18 1550 02/02/18 1550 Imaging Last Impressions Chest X-Ray 02/02/18 1544 Signed Impressions: Service Date/Time: Friday, February 02, 2018 15:50 - CONCLUSION: Bilateral lower lobe consolidation. Blayne Sanchez MD Septic Shock Reassessment Septic shock perfusion: reassessment completed Caprini VTE Risk Assessment Caprini VTE Risk Assessment: Mod/High Risk (score >= 2) VTE Pharm Contraindication: Coagulopathy,INR elevated Caprini Risk Assessment Model Point Value = 1 Point Value = 2 Point Value = 3 Point Value = 5 Age 41-60 Minor surgery BMI > 25 kg/m2 Swollen legs Varicose veins or History of unexplained or recurrent spontaneous Oral contraceptives or hormone replacement Sepsis (< 1 month) Serious lung disease, including pneumonia (< 1 month) Abnormal pulmonary function Acute myocardial infarction Congestive heart failure (< 1 month) History of inflammatory bowel disease Medical patient at bed rest Age 61-74 Arthroscopic surgery Major open surgery (> 45 min) Laparoscopic surgery (> 45 min) Malignancy Confined to bed (> 72 hours) Immobilizing plaster cast Central venous access Age >= 75 History of VTE Family history of VTE Factor V Leiden Prothrombin [id number] Lupus anticoagulant Anticardiolipin antibodies Elevated serum homocysteine Heparin-induced thrombocytopenia Other congenital or acquired thrombophilia Stroke (< 1 month) Elective arthroplasty Hip, pelvis, or leg fracture Acute spinal cord injury (< 1 month) Prophylaxis Regimen Total Risk Factor Score Risk Level Prophylaxis Regimen 0-1 Low Early ambulation 2 Moderate Order ONE of the following: *Sequential Compression Device (SCD) *Heparin 5000 units SQ BID 3-4 Higher Order ONE of the following medications: *Heparin 5000 units SQ TID *Enoxaparin/Lovenox 40 mg SQ daily (WT < 150 kg, CrCl > 30 mL/min) *Enoxaparin/Lovenox 30 mg SQ daily (WT < 150 kg, CrCl > 10-29 mL/min) *Enoxaparin/Lovenox 30 mg SQ BID (WT < 150 kg, CrCl > 30 mL/min) AND/OR *Sequential Compression Device (SCD) 5 or more Highest Order ONE of the following medications: *Heparin 5000 units SQ TID (Preferred with Epidurals) *Enoxaparin/Lovenox 40 mg SQ daily (WT < 150 kg, CrCl > 30 mL/min) *Enoxaparin/Lovenox 30 mg SQ daily (WT < 150 kg, CrCl > 10-29 mL/min) *Enoxaparin/Lovenox 30 mg SQ BID (WT < 150 kg, CrCl > 30 mL/min) AND *Sequential Compression Device (SCD) Assessment and Plan Problem List: (1) Aortic stenosis, severe ICD Code: I35.0 - Nonrheumatic aortic (valve) stenosis (2) Ischemic cardiomyopathy ICD Code: I25.5 - Ischemic cardiomyopathy Status: Chronic (3) Cardiogenic shock ICD Code: R57.0 - Cardiogenic shock Status: Acute (4) PAD (peripheral artery disease) ICD Code: I73.9 - Peripheral vascular disease, unspecified (5) CAD (coronary artery disease) ICD Code: I25.10 - Atherosclerotic heart disease of [place] coronary artery without angina pectoris Assessment and Plan Assessment This is a 87-year-old male with a extensive cardiac history, currently being worked up for TAVR procedure. The patient's medical history significant for severe ischemic cardiomyopathy and severe aortic stenosis and recurrent bouts of congestive heart failure. Patient's lactic acid currently is 7.0. The patient is critically ill will admit to ICU. 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 Mukherjee Cardiovascular: Ischemic cardiomyopathy Severe aortic stenosis AICD Congestive heart failure Follow-up serial troponin level Telemetry-sinus rhythm Cardiology consulted-patient currently being worked up for TAVR S/P Cardiac catheterization (10/22/2017). RCA is dominant, but 100% occluded and fills from collaterals from the LAD. Left main is small, but patent. The LAD has significant tortuosity, with a patent stent in the proximal portion and mid LAD with 90% stenosis. Left circumflex has 2 patent stents with 50% stenosis. He underwent PCI of his LAD with a drug-eluting stent (2.5 x 8) to the distal LAD. 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 Obtain home cardiac meds and resume in am Obtain BNP Renal: ROBBIE Insert Maloney. Patient receiving diuretics -- Strict I/Os FEN/GI: Chronic hyponatremia Patient received Lasix 40 mg IV 1 dose Maintain n.p.o. status for now Dietary consult for tube feeds Patient sodium level on 01/27/18 review of records from [facility] Heme/ID: INR 1.6, continue to trend Obtain sputum blood and urine culture if indicated Begin empiric antibiotics cefepime and azithromycin Endocrine: Glucose monitoring per ICU protocol, low-dose regimen -- SSI Prophylaxis: GI Prophylaxis Famotidine DVT Prophylaxis -- SCDs INR 1.6 Lines: IVs 2. Central line if indicated Palliative care has been also consulted to define goals of care. Dispo: my billing statement This patient remains critically ill with one or more organ systems which are or may become a threat to life. I have spent in excess of 30 minutes discontinuously in the care and management of this patient. This time is exclusive of procedures, and includes, but is not limited to, evaluation of the patient, review of the medical record, discussions with family, consultants, nursing staff, or respiratory therapy, and documentation in the medical record. Code Status Full Discussed Condition With Patient's daughter LizetteDr. Azam Linda W MD February 02, 2018 18:11
[2018-02-02] MEDS ORDERED: SODIUM CHLOR 0.9% 1000 ML INJ 1,000 ML IV SCH (18:15)
[2018-02-02] MEDS ORDERED: TORS10TA2 PO (18:20)
[2018-02-02] MEDS ORDERED: IPRA0.02 NEB (18:20)
[2018-02-02] MEDS ORDERED: CLAR10TA7 PO (18:20)
[2018-02-02] MEDS ORDERED: BUSP5TAB PO (18:20)
[2018-02-02] MEDS ORDERED: ALPR0.5T3 PO (18:20)
[2018-02-02] MEDS ORDERED: MAGN400T2 PO (18:20)
[2018-02-02] MEDS ORDERED: CELE10TA PO (18:20)
[2018-02-02] MEDS: CEFEPIME INJ 2,000 MG in SODIUM CHLORIDE 0.9% INJ 100 ML IV SCH (18:46)
[2018-02-02] MEDS ORDERED: fentaNYL DRIP 250 ML ONE (20:26)
[2018-02-02] MEDS: fentaNYL DRIP 250 ML IV PRN (20:41)
[2018-02-02] MEDS: DOCUSATE SODIUM 50 MG/SENNA 8.6 MG TAB PO SCH (22:02)
[2018-02-02] MEDS: CHLORHEXIDINE 0.12% (ORAL KIT) 15 ML CUP MT SCH (22:02)
[2018-02-02] MEDS: SODIUM CHLORIDE 0.9% FLUSH 10 ML FLUSH IV FLUSH SCH (22:03)
[2018-02-02] MEDS: FAMOTIDINE 20 MG/2 ML VIAL IV PUSH SCH (22:03)
[2018-02-02] MEDS: CHLORHEXIDINE GLUCONATE 2 % 1 PACK (2 CLOTHS) TOP SCH (22:03)
[2018-02-02] MEDS: RESP: ALBUTEROL 2.5 MG/IPRATROPIUM 0.5 MG NEB (SCH) INH (23:45)
[2018-02-03] VITALS (18 sets, daily range): BP systolic 77–110; BP diastolic 55–63; PULSE 60–72; RESP 10–17; TEMP 97.4–98; O2SAT 96–100
[2018-02-03 00:28] LABS: TROPONIN I 0.56 NG/ML (0.02-0.05)
--- NOTE | 2018-02-03 01:14 | MB ---
cc: Martín Orozco DO DATE: 02/02/2018 REASON FOR CONSULTATION: Cardiogenic shock, congestive heart failure, severe aortic stenosis. HISTORY OF PRESENT ILLNESS: Juice Tracy is a pleasant 87-year-old male whom I see in the office and presented to [facility] due to shortness of breath and chest pain. The patient was originally seen by Dr. Rubio and underwent PCI of his LAD in October. At that time, he was noted to have dissection of his LAD and had an intraaortic balloon pump placed. At that time, he was being worked up for TAVR. Since that time, he has been in and out of [facility] multiple times due to congestive heart failure. I saw Mr. Tracy for the first time on 01/28/2018 at the request of Dr. Carrizales on the structural heart team for consideration of repeat cardiac catheterization before TAVR. He was scheduled this week to undergo cardiac catheterization. My office was called today by his daughter stating that he was having chest pain and shortness of breath and coming to the emergency room. In speaking to his daughter, apparently last night, he was uncomfortable most of the night. He was lying in bed and just did not feel that he could get comfortable. He then went to the recliner, but still did not feel comfortable. He woke up and just overall did not feel well. He started noticing more and more significant shortness of breath and EMS was called. On arrival, he was found to be in cardiogenic shock with hyponatremia most likely due to fluid overload state, as well as significant lactic acidosis. I was called by Dr. Rivas and we discussed what I knew about the patient from my office visit and the decision was made after discussion with the daughter by Dr. Rivas to intubate the patient. When seeing the patient, he is currently hemodynamically stable after intubation. He is unable to provide any history and so history is taken from the chart and discussion with the daughter. PAST MEDICAL HISTORY: 1. Coronary artery disease. 2. Ischemic cardiomyopathy. 3. Severe aortic stenosis. 4. COPD. 5. Hypertension. 6. CKD. 7. Anxiety. 8. Diverticulosis. PAST SURGICAL HISTORY: 1. Cardiac catheterization (10/22/2017). RCA is dominant, but 100% occluded and fills from collaterals from the LAD. Left main is small, but patent. The LAD has significant tortuosity, with a patent stent in the proximal portion and mid LAD with 90% stenosis. Left circumflex has 2 patent stents with 50% stenosis. He underwent PCI of his LAD with a drug-eluting stent (2.5 x 8) to the distal LAD. 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 3. AICD implantation. 4. History of AAA repair. 5. Hernia repair. ALLERGIES: NO KNOWN DRUG ALLERGIES. MEDICATIONS: 1. Claritin 10 mg daily. 2. Flomax 0.4 mg b.i.d. 3. Plavix 75 mg daily. 4. Lipitor 80 mg every night. 5. Imdur 30 mg daily. 6. Coreg 6.25 mg b.i.d. 7. Aspirin 81 mg daily. 8. Celexa 10 mg every night. 9. Xanax 0.5 mg every 8 hours as needed for anxiety. 10. Buspirone 5 mg b.i.d. 11. Potassium 20 mEq b.i.d. 12. Torsemide 20 mg b.i.d. 13. Magnesium oxide 400 mg daily. FAMILY HISTORY: No noted premature coronary artery disease. SOCIAL HISTORY: The patient rarely uses alcohol. No history of tobacco or drug abuse. REVIEW OF SYSTEMS: Unable to obtain due to the patient's current state. PHYSICAL EXAMINATION: VITAL SIGNS: Temperature 96.4, heart rate 65, blood pressure 106/66, respirations 18, pulse oximetry 100% on the ventilator. GENERAL: The patient is currently intubated and sedated. He is an elderly, critically ill-appearing male. HEENT: Pupils are equal and round. Mucous membranes moist. ET tube in place. NECK: Supple. No carotid bruits heard bilaterally. HEART: Regular rate and rhythm. Positive first and second heart sounds with a 3/6 crescendo-decrescendo murmur to the right sternal border. PULMONARY: Lungs have decreased breath sounds bilaterally, with rales noted at the bases. ABDOMEN: Soft, nontender, nondistended. No organomegaly noted. EXTREMITIES: Have no clubbing or cyanosis. There is trace edema bilaterally. NEUROLOGIC: He is intubated and sedated. SKIN: Cool and dry. OSTEOPATHICALLY: No kyphoscoliosis or lordosis. LABORATORY DATA: Hemoglobin 11.9, hematocrit 36.0, platelets 124. Sodium 122, potassium 6.6, BUN 25, creatinine 2.0. Lactic acid 8.7. AST 251, ALT 144. Troponin 0.05. BMP 2710. ELECTROCARDIOGRAM (02/02/2018 AT 1617): Sinus rhythm, left axis deviation, left bundle branch block. This is no significant difference from an EKG noted in the office from when he was in [facility]. IMPRESSION: 1. Severe aortic stenosis. 2. Cardiogenic shock. 3. Ischemic cardiomyopathy. 4. Coronary artery disease as above. 5. Ventilatory dependent respiratory failure. 6. Hyponatremia, most likely due to fluid overload state. 7. Acute hypoxic respiratory failure requiring intubation. 8. Acute kidney injury on chronic kidney disease. 9. Hyperkalemia. 10. Elevated liver function tests, most likely due to hypoperfusion. RECOMMENDATIONS: 1. Mr. Tracy appears to have presented in cardiogenic shock. This is extensive, with multiorgan failure, including lactic acidosis. 2. Overall, EKG is no significant change from 1 in the office and I do not believe that this is a STEMI, but more likely due to his fluid overload state. 3. Case was discussed with Dr. Rivas over the phone and overall unsure if his end-stage heart disease if eventually treated by TAVR will be recoverable. Dr. Rivas discussed this with the patient's daughter, as well as I did also. For now, we will attempt to treat him aggressively. 4. I did spend an extensive amount of time with the daughter and she understands that he has been dwindling lately with multiple admissions for heart failure. She understands that his overall illness is extensive at this time and may eventually need to consider palliative care, but for now, she would like to attempt to be aggressive and see how he does. 5. Vent per critical care team. 6. We will keep him on his aspirin and Plavix due to his previous LAD stents. 7. We will attempt to diurese him as possible. 8. His statin will be stopped due to his elevated LFTs. 9. We will continue to follow his lactate level to determine his overall perfusion. Greater than 45 minutes of critical care time spent evaluating the patient in discussion with the daughter, as well as the ER team. 10. Further recommendations will be made based on the hospital course. Thank you for allowing me to see Juice Tracy. If there are any questions, please do not hesitate to call. DO CHINA Olsen/DANNY , 12:17 AM , 01:13 AM
[2018-02-03] MEDS: RESP: ALBUTEROL 2.5 MG/IPRATROPIUM 0.5 MG NEB (SCH) INH ×4 (03:46→21:22)
[2018-02-03 04:03] LABS: AUTOMATED NEUTROPHIL # 4.3 TH/MM3 (1.8-7.7); BASOPHIL # 0.1 TH/MM3 (0-0.2); BASOPHIL % 0.9 % (0.0-2.0); EOSINOPHIL % 0.5 % (0.0-4.0); HEMATOCRIT 32.9 % (39.0-51.0); HEMOGLOBIN 11.3 GM/DL (13.0-17.0); LYMPH % 14.6 % (9.0-44.0); LYMPHOCYTE # 0.9 TH/MM3 (1.0-4.8); MEAN CELL VOLUME 84.2 FL (80.0-100.0); MEAN CORPUSCULAR HEMOGLOBIN 28.8 PG (27.0-34.0); MEAN CORPUSCULAR HGB CONC 34.2 % (32.0-36.0); MEAN PLATELET VOLUME 9.7 FL (7.0-11.0); MONO % 10.1 % (0.0-8.0); MONOCYTE # 0.6 TH/MM3 (0-0.9); NEUT % 73.9 % (16.0-70.0); PLATELET COUNT 88 TH/MM3 (150-450); RED BLOOD COUNT 3.91 MIL/MM3 (4.50-5.90); RED CELL DISTRIBUTION WIDTH 16.4 % (11.6-17.2); WHITE BLOOD COUNT 5.8 TH/MM3 (4.0-11.0)
[2018-02-03 04:14] LABS: INTERNATIONAL NORMALIZED RATIO 1.5 RATIO; PROTHROMBIN TIME - PATIENT 15.2 SEC (9.8-11.6)
--- NOTE | 2018-02-03 04:20 | RADRPT ---
EXAM DATE/TIME: 02/03/2018 02:49 [place] COMPARISON: CHEST SINGLE AP, February 02, 2018, 15:50. INDICATIONS : Short of breath. MEDICAL HISTORY : None. SURGICAL HISTORY : Pacemaker. ENCOUNTER: Subsequent ACUITY: 1 week PAIN SCORE: 0/10 LOCATION: Bilateral chest FINDINGS: A single view of the chest demonstrates persistent bibasilar airspace disease/effusions which may be slightly worse when compared to prior. Heart size remains prominent. Interval intubation with endotra cheal tube approximately 2 cm above the luna. Nasogastric tube is seen in the proximal stomach. Lef t subclavian bipolar pacer is radiographically intact CONCLUSION: 1. Bibasilar airspace disease/effusions. There may be slight interval worsening, particularly on the right. 2. Stable cardiomegaly. 3. Postintubation. Endotracheal tube is positioned approximately 2 cm above the luna. Nasogastric t ube enters the gastric lumen. Danny Benedict MD on February 03, 2018 at 4:17 Board Certified Radiologist. This report was verified electronically.
[2018-02-03 04:27] LABS: ALBUMIN 3.1 GM/DL (3.4-5.0); AST (GOT) 402 U/L (15-37); BICARBONATE 25.6 MEQ/L (21.0-32.0); BLOOD UREA NITROGEN 29 MG/DL (7-18); CALCIUM 8.6 MG/DL (8.5-10.1); CHLORIDE 89 MEQ/L (98-107); CREATININE 1.75 MG/DL (0.60-1.30); GLOMERULAR FILTRATION RATE 37 ML/MIN (>89); GLUCOSE,RANDOM 86 MG/DL (74-106); MAGNESIUM 2.2 MG/DL (1.5-2.5); SODIUM (NA) 128 MEQ/L (136-145)
[2018-02-03 04:31] LABS: ALKALINE PHOSPHATASE 102 U/L (45-117); ALT (GPT) 259 U/L (12-78); TOTAL BILIRUBIN ADULT 1.1 MG/DL (0.2-1.0); TOTAL PROTEIN 5.6 GM/DL (6.4-8.2)
[2018-02-03 04:33] LABS: TROPONIN I 0.91 NG/ML (0.02-0.05)
[2018-02-03 05:07] LABS: ACANTHOCYTES 1+ (NORMAL); OVALOCYTES 1+ (NORMAL)
[2018-02-03] MEDS: INSULIN ASPART SUPPLEMENTAL SCALE SQ SCH ×4 (08:00→20:46)
[2018-02-03] MEDS: FAMOTIDINE 20 MG/2 ML VIAL IV PUSH SCH ×2 (08:44→20:45)
[2018-02-03] MEDS: CLOPIDOGREL 75 MG TAB PO SCH (08:47)
[2018-02-03] MEDS: ASPIRIN 81 MG CHEW TAB CHEW SCH (08:47)
[2018-02-03] MEDS: DOCUSATE SODIUM 50 MG/SENNA 8.6 MG TAB PO SCH ×2 (08:47→20:45)
[2018-02-03] MEDS: ARTIFICIAL TEARS OPTH SOLN 15 ML BTL EACH EYE SCH ×3 (08:48→18:00)
[2018-02-03] MEDS: CHLORHEXIDINE 0.12% (ORAL KIT) 15 ML CUP MT SCH ×2 (08:48→20:44)
[2018-02-03] MEDS: SODIUM CHLORIDE 0.9% FLUSH 10 ML FLUSH IV FLUSH SCH ×2 (08:48→20:45)
--- NOTE | 2018-02-03 09:16 | PD.CARD.PN ---
Subjective Subjective Remarks No events overnight Somewhat awake on the vent Lab work back towards normal, lactate down Objective Medications Current Medications Medications (Trade) Dose Ordered Sig/Eddy Route Start Time Stop Time Status Last Admin (NS Flush) 2 ml UNSCH PRN IVF 02/02/18 15:45 (NS Flush) 2 ml UNSCH PRN IV FLUSH 02/02/18 17:00 (NS Flush) 2 ml BID IV FLUSH 02/02/18 21:00 02/03/18 08:48 (Tylenol) 650 mg Q6H PRN PO 02/02/18 17:00 (Pepcid Inj) 20 mg Q12HR IV PUSH 02/02/18 21:00 02/03/18 08:44 (Tears Naturale Opth Soln) 1 drop TID EACH EYE 02/02/18 18:00 (Zofran Inj) 4 mg Q6H PRN IV PUSH 02/02/18 17:00 (Duoneb Neb) 1 ampule Q6HR NEB INH 02/02/18 22:00 02/03/18 03:46 (Duoneb Neb) 1 ampule Q2HR NEB PRN INH 02/02/18 17:00 ([facility] Information) 1 Q361D XX 02/02/18 17:00 02/02/18 17:00 (Chlorhexidine 2% Cloth) 3 pack Taper DAILY@04 TOP 02/03/18 04:00 01/30/19 03:59 02/02/18 22:03 (Chlorhexidine 2% Cloth) 3 pack UNSCH PRN TOP 02/02/18 17:00 (Nia-Colace) 1 tab BID PO 02/02/18 21:00 02/03/18 08:47 (Milk Of Magnesia Liq) 30 ml Q12H PRN PO 02/02/18 17:00 (Senokot) 17.2 mg Q12H PRN PO 02/02/18 17:00 (Dulcolax Supp) 10 mg DAILY PRN RECTAL 02/02/18 17:00 (Lactulose Liq) 30 ml DAILY PRN PO 02/02/18 17:00 (NovoLOG SUPPLEMENTAL SCALE) 1 ACHS SLIDING SCALE SQ 02/02/18 17:00 (D50w (Vial) Inj) 50 ml UNSCH PRN IV PUSH 02/02/18 17:00 (Glucagon Inj) 1 mg UNSCH PRN OTHER 02/02/18 17:00 (Peridex 0.12% Liq) 15 ml BID@08,20 MT 02/02/18 20:00 02/03/18 08:48 Fentanyl Citrate 250 ml @ 5 mls/hr TITRATE PRN IV 02/02/18 17:00 02/02/18 20:41 Cefepime HCl 2000 mg/Sodium Chloride 100 ml @ 200 mls/hr Q24H IV 02/02/18 18:00 02/02/18 18:46 Azithromycin 500 mg/Sodium Chloride 250 ml @ 250 mls/hr Q24H IV 02/02/18 18:00 02/02/18 18:00 Propofol 100 ml @ 0 mls/hr TITRATE PRN IV 02/02/18 17:15 02/02/18 22:06 Sodium Chloride 1,000 ml @ 42 mls/hr [id number] IV 02/02/18 18:15 02/02/18 20:02 (Aspirin Chew) 81 mg DAILY CHEW 02/03/18 09:00 02/03/18 08:47 (Plavix) 75 mg DAILY PO 02/03/18 09:00 02/03/18 08:47 Vital Signs / I&O Vital Signs Date Time Temp Pulse Resp B/P (MAP) Pulse Ox O2 Delivery O2 Flow Rate FiO2 02/03/18 08:35 99 35 02/03/18 08:00 40 02/03/18 06:00 60 02/03/18 04:40 100 40 02/03/18 04:00 97.4 60 12 107/59 (75) 100 02/03/18 04:00 60 02/03/18 04:00 40 02/03/18 02:00 66 02/03/18 00:34 96 50 02/03/18 00:00 50 02/03/18 00:00 62 02/03/18 00:00 97.9 63 14 105/62 (76) 100 02/02/18 22:00 62 02/02/18 21:05 100 50 02/02/18 21:00 98.6 80 12 120/76 (91) 100 02/02/18 21:00 80 02/02/18 20:54 100 100 02/02/18 20:23 89 18 138/87 (104) 100 Ventilator 02/02/18 20:16 100 50 02/02/18 20:03 88 18 129/87 (101) 100 Ventilator 02/02/18 18:52 100 50 02/02/18 18:47 60 17 99/63 (75) 100 Ventilator 02/02/18 18:21 60 18 91/51 (64) 100 Ventilator 02/02/18 17:48 65 18 106/66 (79) 100 Ventilator 02/02/18 17:30 100 100 02/02/18 17:24 81 24 107/73 (84) Nasal Cannula 3.00 02/02/18 16:24 92 24 117/79 (92) Nasal Cannula 3.00 02/02/18 15:47 95 20 100 Nasal Cannula 2.00 02/02/18 15:46 100 Nasal Cannula 2.00 02/02/18 15:46 100 Nasal Cannula 2.00 02/02/18 15:40 96.4 96 17 96 I/O 02/02/18 02/02/18 02/02/18 02/03/18 02/03/18 02/03/18 07:00 15:00 23:00 07:00 15:00 23:00 Intake Total 550 ml Output Total 700 ml Balance 550 ml -700 ml Intake IV Total 550 ml Output Urine Total 700 ml # Bowel Movements 0 Physical Exam GENERAL: NAD, intubated and lightly sedated SKIN: Warm and dry. HEAD: Atraumatic. Normocephalic. EYES: Pupils equal and round. No scleral icterus. No injection or drainage. ENT: No nasal bleeding or discharge. Mucous membranes pink and moist. NECK: Trachea midline. No JVD. CARDIOVASCULAR: Regular rate and rhythm. 3/6 crescendo-decrescendo murmur to the RSB RESPIRATORY: No accessory muscle use. Decreased breath sounds bilaterally GASTROINTESTINAL: Abdomen soft, non-tender, nondistended. Hepatic and splenic margins not palpable. MUSCULOSKELETAL: Extremities without clubbing, cyanosis, or edema. No obvious deformities. NEUROLOGICAL: Awake and alert. No obvious cranial nerve deficits. Motor grossly within normal limits. Five out of 5 muscle strength in the arms and legs. Normal speech. PSYCHIATRIC: Appropriate mood and affect; insight and judgment normal. Laboratory Laboratory Tests Test 02/02/18 15:50 02/02/18 16:19 02/02/18 16:20 02/02/18 18:31 White Blood Count 4.8 TH/MM3 Red Blood Count 4.08 MIL/MM3 Hemoglobin 11.9 GM/DL Hematocrit 36.0 % Mean Corpuscular Volume 88.2 FL Mean Corpuscular Hemoglobin 29.1 PG Mean Corpuscular Hemoglobin Concent 33.0 % Red Cell Distribution Width 16.4 % Platelet Count 124 TH/MM3 Mean Platelet Volume 10.1 FL Neutrophils (%) (Auto) 69.9 % Lymphocytes (%) (Auto) 16.4 % Monocytes (%) (Auto) 12.7 % Eosinophils (%) (Auto) 0.5 % Basophils (%) (Auto) 0.5 % Neutrophils # (Auto) 3.3 TH/MM3 Lymphocytes # (Auto) 0.8 TH/MM3 Monocytes # (Auto) 0.6 TH/MM3 Eosinophils # (Auto) 0.0 TH/MM3 Basophils # (Auto) 0.0 TH/MM3 CBC Comment DIFF FINAL Differential Comment Prothrombin Time 16.3 SEC Prothromb Time International Ratio 1.6 RATIO Activated Partial Thromboplast Time 26.3 SEC Blood Urea Nitrogen 25 MG/DL Creatinine 2.00 MG/DL Random Glucose 107 MG/DL Total Protein 6.3 GM/DL Albumin 3.3 GM/DL Calcium Level 8.8 MG/DL Magnesium Level 2.1 MG/DL Alkaline Phosphatase 117 U/L Aspartate Amino Transf (AST/SGOT) 251 U/L Alanine Aminotransferase (ALT/SGPT) 144 U/L Total Bilirubin 1.4 MG/DL Sodium Level 122 MEQ/L Potassium Level 6.6 MEQ/L Chloride Level 86 MEQ/L Carbon Dioxide Level 18.8 MEQ/L Anion Gap 17 MEQ/L Estimat Glomerular Filtration Rate 32 ML/MIN Troponin I 0.05 NG/ML B-Type Natriuretic Peptide 2710 PG/ML Blood Gas Puncture Site LT BRACHIAL LT BRACHIAL Blood Gas Patient Temperature 98.6 98.6 Blood Gas HCO3 16 mmol/L 20 mmol/L Blood Gas Base Excess -7.4 mmol/L -1.5 mmol/L Blood Gas Oxygen Saturation 98 % 99 % Arterial Blood pH 7.46 7.58 Arterial Blood Partial Pressure CO2 23 mmHg 22 mmHg Arterial Blood Partial Pressure O2 151 mmHG 510 mmHG Arterial Blood Oxygen Content 16.2 Vol % 16.4 Vol % Arterial Blood Carboxyhemoglobin 1.4 % 1.4 % Arterial Blood Methemoglobin 0.4 % 0.3 % Blood Gas Hemoglobin 11.6 G/DL 10.9 G/DL Oxygen Delivery Device NASAL CANNULA VENTILATOR Blood Gas Liter Flow 4 L/M Blood Gas Inspired Oxygen % 100 % Lactic Acid Level 8.7 mmol/L Blood Gas Ventilator Setting SEE COMMENTS Test 02/02/18 21:00 02/02/18 23:43 02/03/18 03:47 Nasal Screen MRSA (PCR) MRSA NOT DETECTED Sodium Level 127 MEQ/L 128 MEQ/L Lactic Acid Level 3.0 mmol/L 2.3 mmol/L Troponin I 0.56 NG/ML 0.91 NG/ML White Blood Count 5.8 TH/MM3 Red Blood Count 3.91 MIL/MM3 Hemoglobin 11.3 GM/DL Hematocrit 32.9 % Mean Corpuscular Volume 84.2 FL Mean Corpuscular Hemoglobin 28.8 PG Mean Corpuscular Hemoglobin Concent 34.2 % Red Cell Distribution Width 16.4 % Platelet Count 88 TH/MM3 Mean Platelet Volume 9.7 FL Neutrophils (%) (Auto) 73.9 % Lymphocytes (%) (Auto) 14.6 % Monocytes (%) (Auto) 10.1 % Eosinophils (%) (Auto) 0.5 % Basophils (%) (Auto) 0.9 % Neutrophils # (Auto) 4.3 TH/MM3 Lymphocytes # (Auto) 0.9 TH/MM3 Monocytes # (Auto) 0.6 TH/MM3 Eosinophils # (Auto) 0.0 TH/MM3 Basophils # (Auto) 0.1 TH/MM3 CBC Comment AUTO DIFF Differential Comment AUTO DIFF CONFIRMED Platelet Estimate LOW Platelet Morphology Comment NORMAL Ovalocytes 1+ Acanthocytes 1+ Prothrombin Time 15.2 SEC Prothromb Time International Ratio 1.5 RATIO Blood Urea Nitrogen 29 MG/DL Creatinine 1.75 MG/DL Random Glucose 86 MG/DL Total Protein 5.6 GM/DL Albumin 3.1 GM/DL Calcium Level 8.6 MG/DL Phosphorus Level 3.0 MG/DL Magnesium Level 2.2 MG/DL Alkaline Phosphatase 102 U/L Aspartate Amino Transf (AST/SGOT) 402 U/L Alanine Aminotransferase (ALT/SGPT) 259 U/L Total Bilirubin 1.1 MG/DL Potassium Level 4.1 MEQ/L Chloride Level 89 MEQ/L Carbon Dioxide Level 25.6 MEQ/L Anion Gap 13 MEQ/L Estimat Glomerular Filtration Rate 37 ML/MIN Imaging Last 24 hours Impressions Chest X-Ray 02/03/18 0000 Signed Impressions: Service Date/Time: Saturday, February 03, 2018 02:49 - CONCLUSION: 1. Bibasilar airspace disease/effusions. There may be slight interval worsening, particularly on the right. 2. Stable cardiomegaly. 3. Postintubation. Endotracheal tube is positioned approximately 2 cm above the luna. Nasogastric tube enters the gastric lumen. Danny Benedict MD Chest X-Ray 02/02/18 1544 Signed Impressions: Service Date/Time: Friday, February 02, 2018 15:50 - CONCLUSION: Bilateral lower lobe consolidation. Blayne Sanchez MD Assessment and Plan Problem List: (1) Endotracheally intubated ICD Codes: Z97.8 - Presence of other specified devices (2) PAD (peripheral artery disease) ICD Codes: I73.9 - Peripheral vascular disease, unspecified (3) CAD (coronary artery disease) ICD Codes: I25.10 - Atherosclerotic heart disease of [place] coronary artery without angina pectoris (4) Aortic stenosis, severe ICD Codes: I35.0 - Nonrheumatic aortic (valve) stenosis (5) Ischemic cardiomyopathy ICD Codes: I25.5 - Ischemic cardiomyopathy (6) Cardiogenic shock ICD Codes: R57.0 - Cardiogenic shock Status: Acute Assessment and Plan 1) Cardiogenic shock with poor perfusion 2) Lactate decreasing 3) ASA/Plavix for previous stent 4) Elevated trop, most likely type 2 due to overall illness/ Depending on hospital course, most likely cardiac catheterization before discharge 5) Severe Depending on recovery, may benefit from balloon valvuloplasty 6) Intubated Possible extubation today if stable, would not sanders with his overall illness 7) No statin due to elevated LFTs Martín Orozco DO February 03, 2018 09:16
[2018-02-03] MEDS: CARVEDILOL 6.25 MG TAB PO SCH ×2 (10:00→20:45)
--- NOTE | 2018-02-03 10:20 | EKG ---
Date Performed: 02/02/2018 Time Performed: 15:41:45 PTAGE: 87 years EKG: Sinus rhythm with P-wave synchronous ventricular pacing PREVIOUS TRACING 10/23/17 Ventricular pacing new since the prior EKG. DOCTOR: Bj Diallo Interpretating Date/Time 02/03/2018 10:19:41
--- NOTE | 2018-02-03 10:21 | EKG ---
Date Performed: 02/02/2018 Time Performed: 16:17:01 PTAGE: 87 years EKG: Sinus rhythm with P-wave synchronous ventricular pacing Artifact noted. PREVIOUS TRACING : 10/23/2017 05.20 Probably no change since prior tracing. DOCTOR: Bj Diallo Interpretating Date/Time 02/03/2018 10:20:16
--- NOTE | 2018-02-03 10:30 | HHI.CCPN ---
Subjective Remarks/Hospital Course This is a 87-year-old man who presents to the emergency department complaining of chest pain. He was reportedly doing physical therapy at home when he developed the symptoms. EMS describes his initial complaint is superficial back and chest pain around the rib cage, discussing with family member it initially started last night and continued throughout the day progressively getting worse. the patient's has a history of severe ischemic cardiomyopathy as well as severe aortic stenosis. He is being worked up now for TAVR. Initially was seen Dr. Rubio with [facility]. When he left using a follow-up with Dr. Orozco. He has had multiple recent admissions for congestive heart failure including a recent one in [facility] on 01/27/2018. he apparently is also being evaluated by Dr. Carrizales to perform that TAVR. He had a heart cath done October 22 of this year where he had PCI to the mid and distal LAD with Dr. Rubio. He apparently is due to have a no other heart cath done this upcoming week with Dr. Carrizales for another stent in preparation for his TAVR. The patient received Lasix in the ED imaging and laboratory studies reveal a lactic acid of 7. Sodium levels 122 but reviewing his records from [facility] on 01/27 his sodium level at that time was 127. The patient was tachypneic, with a respiratory rate in the 30s and was intubated. Chest x-ray is pending. Upon my evaluation the patient was intubated sedated map running in the mid 80s. Critical care medicine was consulted. Subjective: 5/2: Afebrile. No acute events overnight. Propofol infusion discontinued. Patient remains on low-dose fentanyl infusion with a RASS of -1, plan for initiation of CPAP trials this a.m.. Aspirin, carvedilol medications continued. Atorvastatin held secondary to elevated liver enzymes. Repeat BMP pending. Lactic acid now downtrending. Objective Vital Signs Date Time Temp Pulse Resp B/P (MAP) Pulse Ox O2 Delivery O2 Flow Rate FiO2 02/03/18 09:40 35 02/03/18 08:35 99 02/03/18 06:00 60 02/03/18 04:00 97.4 12 107/59 (75) 02/02/18 20:23 Ventilator 02/02/18 17:24 3.00 Intake and Output 02/03/18 02/03/18 02/04/18 08:00 16:00 00:00 Output Total 700 ml Balance -700 ml Result Diagram: 02/03/18 0347 02/03/18 0347 Other Results Laboratory Tests Test 02/02/18 16:19 02/02/18 18:31 Blood Gas Puncture Site LT BRACHIAL LT BRACHIAL Blood Gas Patient Temperature 98.6 98.6 Blood Gas HCO3 16 mmol/L (22-26) 20 mmol/L (22-26) Blood Gas Base Excess -7.4 mmol/L (-2-2) -1.5 mmol/L (-2-2) Blood Gas Oxygen Saturation 98 % (90-100) 99 % (90-100) Arterial Blood pH 7.46 (7.380-7.420) 7.58 (7.380-7.420) Arterial Blood Partial Pressure CO2 23 mmHg (38-42) 22 mmHg (38-42) Arterial Blood Partial Pressure O2 151 mmHG (61-120) 510 mmHG (61-120) Arterial Blood Oxygen Content 16.2 Vol % (12.0-20.0) 16.4 Vol % (12.0-20.0) Arterial Blood Carboxyhemoglobin 1.4 % (0-4) 1.4 % (0-4) Arterial Blood Methemoglobin 0.4 % (0-2) 0.3 % (0-2) Blood Gas Hemoglobin 11.6 G/DL (12.0-16.0) 10.9 G/DL (12.0-16.0) Oxygen Delivery Device NASAL CANNULA VENTILATOR Blood Gas Liter Flow 4 L/M Blood Gas Inspired Oxygen % 100 % Blood Gas Ventilator Setting SEE COMMENTS Imaging Last Impressions Chest X-Ray 02/03/18 0000 Signed Impressions: Service Date/Time: Saturday, February 03, 2018 02:49 - CONCLUSION: 1. Bibasilar airspace disease/effusions. There may be slight interval worsening, particularly on the right. 2. Stable cardiomegaly. 3. Postintubation. Endotracheal tube is positioned approximately 2 cm above the luna. Nasogastric tube enters the gastric lumen. Danny Benedict MD Last Impressions Chest X-Ray 02/02/18 1544 Signed Impressions: Service Date/Time: Friday, February 02, 2018 15:50 - CONCLUSION: Bilateral lower lobe consolidation. Blayne Sanchez MD Objective Remarks GENERAL: Elderly ill-appearing gentleman intubated and sedated SKIN: Warm and dry. HEAD: Atraumatic. Normocephalic. EYES: Pupils equal and round. No scleral icterus. No injection or drainage. ENT: No nasal bleeding or discharge. Mucous membranes pink and moist. NECK: Trachea midline. No JVD. CARDIOVASCULAR: Normal rate, regular rhythm. RESPIRATORY: No accessory muscle use. Clear to auscultation. Breath sounds equal bilaterally. GASTROINTESTINAL: Abdomen soft, non-tender, nondistended. No guarding. MUSCULOSKELETAL: Extremities without clubbing, cyanosis, or edema. No obvious deformities. NEUROLOGICAL: Intubated and sedated. Currently on fentanyl infusion. No gross focal/sensory deficits. Follows commands in all 4 extremities. A/P Problem List: (1) Aortic stenosis, severe ICD Code: I35.0 - Nonrheumatic aortic (valve) stenosis (2) Ischemic cardiomyopathy ICD Code: I25.5 - Ischemic cardiomyopathy Status: Chronic (3) Cardiogenic shock ICD Code: R57.0 - Cardiogenic shock Status: Acute (4) PAD (peripheral artery disease) ICD Code: I73.9 - Peripheral vascular disease, unspecified (5) CAD (coronary artery disease) ICD Code: I25.10 - Atherosclerotic heart disease of [place] coronary artery without angina pectoris Assessment and Plan Plan by systems: Neurologic: Fentanyl infusion to maintain ventilator synchrony, propofol discontinued 02/03 Neuro checks per ICU protocol Daily sedation vacation Tylenol 650 mg every 6 hours as needed for pain and/or fever Respiratory: Acute hypoxemic respiratory failure Patient intubated for 02/02 in the ED 02/02 chest [id number] lower lobe consolidation Sputum culture and antibiotics see below 02/03 Begin CPAP trials Ventilator bundle Duo nebs every 6 hours scheduled every 2 hours as needed 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 Mukherjee Cardiovascular: Ischemic cardiomyopathy Severe aortic stenosis AICD Congestive heart failure Follow-up serial troponin level Telemetry-sinus rhythm Cardiology following -patient currently being worked up for TAVR. Tentative plan for possible cardiac catheterization prior to discharge S/P Cardiac catheterization (10/22/2017). RCA is dominant, but 100% occluded and fills from collaterals from the LAD. Left main is small, but patent. The LAD has significant tortuosity, with a patent stent in the proximal portion and mid LAD with 90% stenosis. Left circumflex has 2 patent stents with 50% stenosis. He underwent PCI of his LAD with a drug-eluting stent to the distal LAD. 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 5/2 Aspirin, carvedilol, Plavix home medications resumed. Atorvastatin held secondary to elevated LFT's F/ U BNP Renal: ROBBIE Insert Maloney. Patient receiving diuretics -- Strict I/Os FEN/GI: Chronic hyponatremia Electrolyte derangement Patient received Lasix 40 mg IV 1 dose Continue Lasix 20 mg twice daily Begin tube feeds IV fluids NS 42/hr discontinued Dietary consult for tube feeds Patient sodium level on 01/27/18 review of records from [facility] Hyperkalemia resolved potassium level 4.1 Heme/ID: INR 1.5 continue to trend Obtain sputum blood and urine culture if indicated Begin empiric antibiotics cefepime and azithromycin Endocrine: Glucose monitoring per ICU protocol, low-dose regimen -- SSI Msk: Wound care consult for gluteal blisters/skin breakdown Prophylaxis: GI Prophylaxis Famotidine DVT Prophylaxis -- SCDs. Heparin subcu INR 1.6 Lines: IVs 2. Central line if indicated Palliative care has been also consulted to define goals of care. Dispo: my billing statement This patient remains critically ill with one or more organ systems which are or may become a threat to life. I have spent in excess of 33 minutes discontinuously in the care and management of this patient. This time is exclusive of procedures, and includes, but is not limited to, evaluation of the patient, review of the medical record, discussions with family, consultants, nursing staff, or respiratory therapy, and documentation in the medical record. Physician Elizabeth Kent MD February 03, 2018 10:30
--- NOTE | 2018-02-03 11:48 | PD.CONS ---
Consult Service Palliative Care Consult Requested By Dr. Dai Primary Care Physician Non-Staff Reason for Consultation a. To assist with evaluation and management of symptoms including: Chest pain, dyspnea b. To assist medical decision maker(s) with: better understanding of current medical conditions; weighing benefits/burdens of medical treatment options; making medical treatment decisions. HPI History of Present Illness This is an 87-year-old male who presented to the emergency department with a complaint of chest pain and dyspnea. He describes his pain as superficial back and chest pain around the rib cage. He had been complaining of feeling "uncomfortable". Per his daughter, this was the first time he had complained of chest pain. He has been admitted multiple times at [facility] for congestive heart failure exacerbations. He has a known history of severe ischemic cardiomyopathy and severe aortic stenosis and is currently undergoing TAVR workup. Stress echo done 10/22/17 shows an aortic valve area of 0.7 cm. He is currently under the care of Dr. Orozco and Dr. Carrizales who is planning to perform the TAVR. He is pending second heart catheterization by Dr. Orozco. ED course: * Laboratory: WBC 4.8, hemoglobin 11.9, hematocrit 36.0, platelets 124, APTT 26.3, PT, 16.3, INR 1.6, sodium 122, potassium 6.6, BUN 25, creatinine 2.00, random glucose 107, AST 251, ALT 144, total bilirubin 1.4, ABG pH 7.46, PCO2 23 , PO2 151, HCO3 16, base excess -7.4 on 4 L nasal cannula. Lactic acid 8.7. * Radiology: Chest x-ray shows bibasilar infiltrates. On evaluation, this is an elderly, thin male intubated, sedated on a spontaneous breathing trial, tolerating well, in no acute distress. monitoring engineer shows regular rate and rhythm. No significant edema. Function/Cognitive Trajectory He has had multiple hospitalizations over the last 6 months with continued decline in function and cognition. He has stopped driving over the last year and has begun losing weight. His daughter notes some episodes of mild confusion and poor memory recall which had not previously occurred. He had previously driven himself and is now unable to do so. The daughter did raise the option of hospice and although that was discussed. She does not believe it is the correct option for this current time. She will consider that after he completes his TAVR workup, whether they go forward with that or not. . Review of Systems ROS Limitations: Intubated, Unresponsive Constitutional: DENIES: Diaphoretic episodes, Fatigue, Fever, Weight gain, Weight loss, Chills, Dizziness, Change in appetite, Night Sweats, Pain, Generalized weakness, Sleep problems Endocrine: DENIES: Heat/cold intolerance, Polydipsia, Polyuria, Polyphagia Eyes: DENIES: Blurred vision, Diplopia, Eye inflammation, Eye pain, Vision loss , Photosensitivity, Double Vision, Blind spots Ears, nose, mouth, throat: DENIES: Tinnitus, Hearing loss, Vertigo, Nasal discharge, Oral lesions, Throat pain, Hoarseness, Ear Pain, Running Nose, Epistaxis, Sinus Pain, Toothache, Odynophagia Respiratory: COMPLAINS OF: Shortness of breath Cardiovascular: COMPLAINS OF: Chest pain, Orthopnea Gastrointestinal: DENIES: Abdominal pain, Black stools, Bloody stools, Constipation, Diarrhea, Nausea, Vomiting, Difficulty Swallowing, Anorexia, Dyspepsia or heartburn, Excessive gas, Bloating, Vomiting blood Genitourinary: DENIES: Sexual dysfunction, Urinary frequency, Urinary incontinence, Urgency, Hematuria, Dysuria, Nocturia, Penile Discharge, Testicular Pain, Testicular Swelling, Hesitancy, Dribbling, Decreased stream Musculoskeletal: DENIES: Joint pain, Muscle aches, Stiffness, Joint Swelling, Back pain, Neck pain, Decreased range of motion Integumentary: DENIES: Abnormal pigmentation, Nail changes, Pruritus, Rash, Nodules, Tumors, Excessive dryness, Non-healing sores Hematologic/Lymphatics: DENIES: Bruising, Lymphadenopathy, Prolonged bleed w/ proced, History of transfusions Immunologic/Allergic: DENIES: Eczema, Urticaria Neurologic: DENIES: Abnormal gait, Headache, Localized weakness, Paresthesias, Seizures, Speech Problems, Tremor, Poor Balance, Change in smell or taste Psychiatric: COMPLAINS OF: Confusion (Intermittent) Past Family Social History Coded Allergies: No Known Allergies (Verified , 02/23/14) Past Medical History Hypertension Coronary artery disease Ischemic cardiomyopathy Severe aortic stenosis COPD CKD Anxiety Diverticulosis . Past Surgical History Left heart catheterization 2013 and 10/22/2017 Cholecystectomy 1942 Tonsillectomy Aortobifemoral bypass graft 2008 Right foot second toe hammertoe correction 2011 Ventral hernia repair 2009 Right shoulder rotator cuff repair Implantation of Biotronik dual-chamber ICD AAA repair . Reported Medications Reported Meds & Active Scripts Active Plavix (Clopidogrel Bisulfate) 75 Mg Tab 75 Mg PO DAILY 30 Days Isosorbide Mononitrate ER (Isosorbide Mononitrate) 30 Mg Chet 30 Mg PO DAILY Tgt Aspirin (Aspirin) 81 Mg Chw 81 Mg PO DAILY 30 Days Reported Ipratropium Neb (Ipratropium [place]) 0.5 Mg/2.5 Ml Amp 0.5 Mg NEB Q6HR PRN Celexa (Citalopram Hydrobromide) 10 Mg Tab 10 Mg PO HS Alprazolam 0.5 Mg Tab 0.5 Mg PO Q8H PRN Magnesium Oxide 400 Mg Tab 400 Mg PO DAILY Claritin (Loratadine) 10 Mg Tablet 10 Mg PO DAILY Torsemide 10 Mg Tab 20 Mg PO BID Buspirone (Buspirone HCl) 5 Mg Tab 5 Mg PO BID Vitamin D3 (Cholecalciferol) 2,000 Unit Cap 2,000 Units PO DAILY Tamsulosin (Tamsulosin HCl) 0.4 Mg Cap 0.4 Mg PO BID Klor-Con 10 (Potassium Chloride) 10 Meq Tab 20 Meq PO BID Carvedilol 3.125 Mg Tab 6.25 Mg PO BID Atorvastatin (Atorvastatin Calcium) 80 Mg Tab 80 Mg PO HS Current Medications Medications (Trade) Dose Ordered Sig/Eddy Route Start Time Stop Time Status Last Admin (NS Flush) 2 ml UNSCH PRN IV FLUSH 02/02/18 17:00 (NS Flush) 2 ml BID IV FLUSH 02/02/18 21:00 02/03/18 08:48 (Tylenol) 650 mg Q6H PRN PO 02/02/18 17:00 (Pepcid Inj) 20 mg Q12HR IV PUSH 02/02/18 21:00 02/03/18 08:44 (Tears Naturale Opth Soln) 1 drop TID EACH EYE 02/02/18 18:00 (Zofran Inj) 4 mg Q6H PRN IV PUSH 02/02/18 17:00 (Duoneb Neb) 1 ampule Q6HR NEB INH 02/02/18 22:00 02/03/18 09:42 (Duoneb Neb) 1 ampule Q2HR NEB PRN INH 02/02/18 17:00 ([facility] Nursing Information) 1 Q361D XX 02/02/18 17:00 02/02/18 17:00 (Chlorhexidine 2% Cloth) 3 pack Taper DAILY@04 TOP 02/03/18 04:00 01/30/19 03:59 02/02/18 22:03 (Chlorhexidine 2% Cloth) 3 pack UNSCH PRN TOP 02/02/18 17:00 (Nia-Colace) 1 tab BID PO 02/02/18 21:00 02/03/18 08:47 (Milk Of Magnesia Liq) 30 ml Q12H PRN PO 02/02/18 17:00 (Senokot) 17.2 mg Q12H PRN PO 02/02/18 17:00 (Dulcolax Supp) 10 mg DAILY PRN RECTAL 02/02/18 17:00 (Lactulose Liq) 30 ml DAILY PRN PO 02/02/18 17:00 (NovoLOG SUPPLEMENTAL SCALE) 1 ACHS SLIDING SCALE SQ 02/02/18 17:00 (D50w (Vial) Inj) 50 ml UNSCH PRN IV PUSH 02/02/18 17:00 (Glucagon Inj) 1 mg UNSCH PRN OTHER 02/02/18 17:00 (Peridex 0.12% Liq) 15 ml BID@08,20 MT 02/02/18 20:00 02/03/18 08:48 Fentanyl Citrate 250 ml @ 5 mls/hr TITRATE PRN IV 02/02/18 17:00 02/02/18 20:41 Cefepime HCl 2000 mg/Sodium Chloride 100 ml @ 200 mls/hr Q24H IV 02/02/18 18:00 02/02/18 18:46 Azithromycin 500 mg/Sodium Chloride 250 ml @ 250 mls/hr Q24H IV 02/02/18 18:00 02/02/18 18:00 (Aspirin Chew) 81 mg DAILY CHEW 02/03/18 09:00 02/03/18 08:47 (Plavix) 75 mg DAILY PO 02/03/18 09:00 02/03/18 08:47 (Coreg) 6.25 mg BID PO 02/03/18 10:00 Family History Notable for cancer of unknown primary and his father, 1 brother with a stroke and a sister with brain cancer. Mother of natural causes at age 89. Substance Use Tobacco: Smoked cigars, quit in 2008 Alcohol: Social use only. Prescription med abuse: None noted Illicits: None noted. . Psychosocial History He was born and brought up in [place], finishing high school prior to entering the [employer]. He did not see combat, having entered the service between World War II and the [place] War. 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 He has 5 children from a prior marriage from whom he is estranged. His stepdaughter from his second marriage is his healthcare surrogate and DURABLE POWER OF RACQUET MAKER. They reside in a home together and she provides him with necessary support required for his ADLs. . Spiritual/Cultural Factors He is of the Rastafarian gabby. Living Will: Copy in medical record Health Care Surrogate: Copy in medical record Durable Power of Route Sales Delivery Driver: Completed, but not made available Date completed: February 04, 2017 . Health Care Surrogate(s): Lizette Tracy . Alternate healthcare surrogate is Opal Metzger . Documented care wishes: Standard living will verbiage. . Today's verbally stated goals: Patient is intubated and unable to state his goals. . Family/friends goals: Daughter states that her goal is to try to have him complete workup for the TAVR for his aortic stenosis to see if it will improve his symptoms and quality of life. She is aware that due to his multiple comorbidities he is at risk of complications and decline. He has previously stated to her that he would be tolerant of intubation for a very short time if it were to fix an acute problem , but is unwilling to remain on ventilator or have artificial life support sustaining him in any way. . Ethical and Legal Issues None noted. . Physical Exam Vital Signs Date Time Temp Pulse Resp B/P (MAP) Pulse Ox O2 Delivery O2 Flow Rate FiO2 02/03/18 09:40 35 02/03/18 08:35 99 35 02/03/18 08:00 40 02/03/18 06:00 60 02/03/18 04:40 100 40 02/03/18 04:00 97.4 60 12 107/59 (75) 100 02/03/18 04:00 60 02/03/18 04:00 40 02/03/18 02:00 66 02/03/18 00:34 96 50 02/03/18 00:00 50 02/03/18 00:00 62 02/03/18 00:00 97.9 63 14 105/62 (76) 100 02/02/18 22:00 62 02/02/18 21:05 100 50 02/02/18 21:00 98.6 80 12 120/76 (91) 100 02/02/18 21:00 80 02/02/18 20:54 100 100 02/02/18 20:23 89 18 138/87 (104) 100 Ventilator 02/02/18 20:16 100 50 02/02/18 20:03 88 18 129/87 (101) 100 Ventilator 02/02/18 18:52 100 50 02/02/18 18:47 60 17 99/63 (75) 100 Ventilator 02/02/18 18:21 60 18 91/51 (64) 100 Ventilator 02/02/18 17:48 65 18 106/66 (79) 100 Ventilator 02/02/18 17:30 100 100 02/02/18 17:24 81 24 107/73 (84) Nasal Cannula 3.00 02/02/18 16:24 92 24 117/79 (92) Nasal Cannula 3.00 02/02/18 15:47 95 20 100 Nasal Cannula 2.00 02/02/18 15:46 100 Nasal Cannula 2.00 02/02/18 15:46 100 Nasal Cannula 2.00 02/02/18 15:40 96.4 96 17 96 Exam CONSTITUTIONAL/GENERAL: This is a thin, elderly, male patient, in no apparent distress. TUBES/LINES/DRAINS: PIV, ETT, Maloney, OGT SKIN: No jaundice, rashes, or lesions. Ecchymoses on upper extremities. No wounds seen anteriorly. Skin temperature appropriate. Not diaphoretic. HEAD: Atraumatic. Normocephalic. EYES: Pupils equal and round and reactive. No scleral icterus. No injection or drainage. Fundi not examined. ENT: Nose without bleeding or purulent drainage. NECK: Trachea midline. Supple, nontender. No palpable thyroid enlargement or nodularity. CARDIOVASCULAR: S1, S2, regular rhythm, controlled rate, 3/6 systolic ejection murmur at right sternal border. RESPIRATORY/CHEST: Symmetric, unlabored respirations. Scattered rhonchi and wheezes across anterior lung villarreal, diminished, crackles posterior bases. GASTROINTESTINAL: Abdomen soft, nondistended. No hepato-splenomegaly, or palpable masses. No guarding. Bowel sounds present. GENITOURINARY: Without palpable bladder distension. Maloney catheter in place. MUSCULOSKELETAL: Extremities without clubbing, cyanosis, or edema. No mottling or clubbing. LYMPHATICS: No palpable cervical or supraclavicular adenopathy. NEUROLOGICAL: Intubated, sedated. PSYCHIATRIC: Sedated. . Diagnostic Tests Laboratory Laboratory Tests Test 02/02/18 15:50 02/02/18 16:19 02/02/18 16:20 02/02/18 18:31 White Blood Count 4.8 TH/MM3 (4.0-11.0) Red Blood Count 4.08 MIL/MM3 (4.50-5.90) Hemoglobin 11.9 GM/DL (13.0-17.0) Hematocrit 36.0 % (39.0-51.0) Mean Corpuscular Volume 88.2 FL (80.0-100.0) Mean Corpuscular Hemoglobin 29.1 PG (27.0-34.0) Mean Corpuscular Hemoglobin Concent 33.0 % (32.0-36.0) Red Cell Distribution Width 16.4 % (11.6-17.2) Platelet Count 124 TH/MM3 (150-450) Mean Platelet Volume 10.1 FL (7.0-11.0) Neutrophils (%) (Auto) 69.9 % (16.0-70.0) Lymphocytes (%) (Auto) 16.4 % (9.0-44.0) Monocytes (%) (Auto) 12.7 % (0.0-8.0) Eosinophils (%) (Auto) 0.5 % (0.0-4.0) Basophils (%) (Auto) 0.5 % (0.0-2.0) Neutrophils # (Auto) 3.3 TH/MM3 (1.8-7.7) Lymphocytes # (Auto) 0.8 TH/MM3 (1.0-4.8) Monocytes # (Auto) 0.6 TH/MM3 (0-0.9) Eosinophils # (Auto) 0.0 TH/MM3 (0-0.4) Basophils # (Auto) 0.0 TH/MM3 (0-0.2) CBC Comment DIFF FINAL Differential Comment Prothrombin Time 16.3 SEC (9.8-11.6) Prothromb Time International Ratio 1.6 RATIO Activated Partial Thromboplast Time 26.3 SEC (24.3-30.1) Blood Urea Nitrogen 25 MG/DL (7-18) Creatinine 2.00 MG/DL (0.60-1.30) Random Glucose 107 MG/DL (74-106) Total Protein 6.3 GM/DL (6.4-8.2) Albumin 3.3 GM/DL (3.4-5.0) Calcium Level 8.8 MG/DL (8.5-10.1) Magnesium Level 2.1 MG/DL (1.5-2.5) Alkaline Phosphatase 117 U/L (45-117) Aspartate Amino Transf (AST/SGOT) 251 U/L (15-37) Alanine Aminotransferase (ALT/SGPT) 144 U/L (12-78) Total Bilirubin 1.4 MG/DL (0.2-1.0) Sodium Level 122 MEQ/L (136-145) Potassium Level 6.6 MEQ/L (3.5-5.1) Chloride Level 86 MEQ/L (98-107) Carbon Dioxide Level 18.8 MEQ/L (21.0-32.0) Anion Gap 17 MEQ/L (5-15) Estimat Glomerular Filtration Rate 32 ML/MIN (>89) Troponin I 0.05 NG/ML (0.02-0.05) B-Type Natriuretic Peptide 2710 PG/ML (0-100) Blood Gas Puncture Site LT BRACHIAL LT BRACHIAL Blood Gas Patient Temperature 98.6 98.6 Blood Gas HCO3 16 mmol/L (22-26) 20 mmol/L (22-26) Blood Gas Base Excess -7.4 mmol/L (-2-2) -1.5 mmol/L (-2-2) Blood Gas Oxygen Saturation 98 % (90-100) 99 % (90-100) Arterial Blood pH 7.46 (7.380-7.420) 7.58 (7.380-7.420) Arterial Blood Partial Pressure CO2 23 mmHg (38-42) 22 mmHg (38-42) Arterial Blood Partial Pressure O2 151 mmHG (61-120) 510 mmHG (61-120) Arterial Blood Oxygen Content 16.2 Vol % (12.0-20.0) 16.4 Vol % (12.0-20.0) Arterial Blood Carboxyhemoglobin 1.4 % (0-4) 1.4 % (0-4) Arterial Blood Methemoglobin 0.4 % (0-2) 0.3 % (0-2) Blood Gas Hemoglobin 11.6 G/DL (12.0-16.0) 10.9 G/DL (12.0-16.0) Oxygen Delivery Device NASAL CANNULA VENTILATOR Blood Gas Liter Flow 4 L/M Blood Gas Inspired Oxygen % 100 % Lactic Acid Level 8.7 mmol/L (0.4-2.0) Blood Gas Ventilator Setting SEE COMMENTS Test 02/02/18 21:00 02/02/18 23:43 02/03/18 03:47 Nasal Screen MRSA (PCR) MRSA NOT DETECTED (NOT Sodium Level 127 MEQ/L (136-145) 128 MEQ/L (136-145) Lactic Acid Level 3.0 mmol/L (0.4-2.0) 2.3 mmol/L (0.4-2.0) Troponin I 0.56 NG/ML (0.02-0.05) 0.91 NG/ML (0.02-0.05) White Blood Count 5.8 TH/MM3 (4.0-11.0) Red Blood Count 3.91 MIL/MM3 (4.50-5.90) Hemoglobin 11.3 GM/DL (13.0-17.0) Hematocrit 32.9 % (39.0-51.0) Mean Corpuscular Volume 84.2 FL (80.0-100.0) Mean Corpuscular Hemoglobin 28.8 PG (27.0-34.0) Mean Corpuscular Hemoglobin Concent 34.2 % (32.0-36.0) Red Cell Distribution Width 16.4 % (11.6-17.2) Platelet Count 88 TH/MM3 (150-450) Mean Platelet Volume 9.7 FL (7.0-11.0) Neutrophils (%) (Auto) 73.9 % (16.0-70.0) Lymphocytes (%) (Auto) 14.6 % (9.0-44.0) Monocytes (%) (Auto) 10.1 % (0.0-8.0) Eosinophils (%) (Auto) 0.5 % (0.0-4.0) Basophils (%) (Auto) 0.9 % (0.0-2.0) Neutrophils # (Auto) 4.3 TH/MM3 (1.8-7.7) Lymphocytes # (Auto) 0.9 TH/MM3 (1.0-4.8) Monocytes # (Auto) 0.6 TH/MM3 (0-0.9) Eosinophils # (Auto) 0.0 TH/MM3 (0-0.4) Basophils # (Auto) 0.1 TH/MM3 (0-0.2) CBC Comment AUTO DIFF Differential Comment AUTO DIFF CONFIRMED Platelet Estimate LOW (NORMAL) Platelet Morphology Comment NORMAL (NORMAL) Ovalocytes 1+ (NORMAL) Acanthocytes 1+ (NORMAL) Prothrombin Time 15.2 SEC (9.8-11.6) Prothromb Time International Ratio 1.5 RATIO Blood Urea Nitrogen 29 MG/DL (7-18) Creatinine 1.75 MG/DL (0.60-1.30) Random Glucose 86 MG/DL (74-106) Total Protein 5.6 GM/DL (6.4-8.2) Albumin 3.1 GM/DL (3.4-5.0) Calcium Level 8.6 MG/DL (8.5-10.1) Phosphorus Level 3.0 MG/DL (2.5-4.9) Magnesium Level 2.2 MG/DL (1.5-2.5) Alkaline Phosphatase 102 U/L (45-117) Aspartate Amino Transf (AST/SGOT) 402 U/L (15-37) Alanine Aminotransferase (ALT/SGPT) 259 U/L (12-78) Total Bilirubin 1.1 MG/DL (0.2-1.0) Potassium Level 4.1 MEQ/L (3.5-5.1) Chloride Level 89 MEQ/L (98-107) Carbon Dioxide Level 25.6 MEQ/L (21.0-32.0) Anion Gap 13 MEQ/L (5-15) Estimat Glomerular Filtration Rate 37 ML/MIN (>89) B-Type Natriuretic Peptide 2091 PG/ML (0-100) Result Diagram: 02/03/18 0347 02/03/18 0347 Microbiology Microbiology Date/Time Source Procedure Growth Status 02/02/18 17:00 Blood Peripheral Aerobic Blood Culture - Preliminary NO GROWTH IN 1 DAY Resulted 02/02/18 17:00 Blood Peripheral Anaerobic Blood Culture - Preliminary NO GROWTH IN 1 DAY Resulted 02/02/18 17:00 Blood Peripheral Aerobic Blood Culture - Preliminary NO GROWTH IN 1 DAY Resulted 02/02/18 17:00 Blood Peripheral Anaerobic Blood Culture - Preliminary NO GROWTH IN 1 DAY Resulted 02/02/18 18:50 Sputum Endotracheal Gram Stain - Final Resulted 02/02/18 18:50 Sputum Endotracheal Sputum Culture Pending Resulted Imaging Last Impressions Chest X-Ray 02/03/18 0000 Signed Impressions: Service Date/Time: Saturday, February 03, 2018 02:49 - CONCLUSION: 1. Bibasilar airspace disease/effusions. There may be slight interval worsening, particularly on the right. 2. Stable cardiomegaly. 3. Postintubation. Endotracheal tube is positioned approximately 2 cm above the luna. Nasogastric tube enters the gastric lumen. Danny Benedict MD Procedures 02/02: Endotracheal intubation. . Patient/Family Conference Present at Family Conference: Spoke with daughterKathrin, in conference room. Reviewed past medical, social and psychosocial history. Reviewed palliative care purpose and focus, as well as below listed items. Discussed possible scenarios and outcomes and the benefits and burdens of those decisions. During conversation she did conference in by telephone the alternate healthcare surrogate, Opal Metzger, to participate in the discussion. We reviewed the risks of contrast dye, needed to finish the preoperative TAVR workup and cardiac catheterization, to the kidneys and the burdens that that presented with respect to possible kidney compromise/failure, as well as the risk for possible need to convert to open heart procedure during TAVR procedure. She is aware of the risks and plans to proceed as advised by Dr. Orozco and Dr. Carrizales, as she feels this is her father's wish and will make necessary decisions that arise during his clinical course. Contact information for palliative care was provided to the family for any further questions or concerns. . Issues Discussed: * Palliative care role, purpose, approach * Additional medical, psychosocial, and spiritual history * Patients general health, functional status, and cognitive changes in the months leading up to the current hospitalization * Patient/family understanding of the current medical problems * Patient/family understanding of prognosis * Patients goals of care as best understood from advance directives and/or conversations and/or values * Current medical treatment options and benefits/burdens of those options * Likely scenarios comparing ongoing aggressive care with a transition to comfort measures only * Questions answered to the best of my ability * Palliative care contact information provided Assessment and Plan Disease Oriented Problem List: (1) Cardiogenic shock (2) Aortic stenosis, severe (3) CAD (coronary artery disease) (4) Ischemic cardiomyopathy Symptom Scale: (1) Chest pain 0-10 Scale: Unable to quantify (Intubated, sedated) (2) Dyspnea and respiratory abnormalities 0-10 Scale: Unable to quantify (Intubated, sedated) Pertinent Non-Medical Issues Psychosocial:He was born and brought up in [place], finishing high school prior to entering the [employer]. He did not see combat, having entered the service between World War II and the [place] War. 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 He has 5 children from a prior marriage from whom he is estranged. His stepdaughter from his second marriage is his healthcare surrogate and DURABLE POWER OF RACQUET MAKER. They reside in a home together and she provides him with necessary support required for his ADLs. Spiritual: Rastafarian gabby. Legal: He has named his adopted daughter Kathrin as his healthcare surrogate. Ethical issues impacting care: None noted. . Important Contacts Daughter -Lizette Tracy Friend- Opal Metzger . Prognosis His prognosis is guarded. He is of advanced age at 87 years old with severe coronary artery disease, ischemic cardiomyopathy, severe aortic stenosis disease and COPD. It is his plan to go forward with TAVR for his aortic stenosis, with hope that this will relieve his symptoms enough to allow him to maintain his quality of life. As he has multiple compromised organs and is currently on a ventilator, he may suffer complications and decline prior to being able to achieve that. He still faces obstacles of studies involving dye, to include CT and cardiac catheterization, which could further compromise his renal function as well as the known complications of the procedures themselves. He would be hospice appropriate if goals become consistent. This was discussed with his daughter and she is aware of the services provided and will engage them at the point that he has completed his TAVR or been judged not a candidate. . Code Status: Full Code Plan PLAN: Legal decision maker: Patient is not capacitated to make his own decisions at this time as he is intubated. He has named his daughter Kathrin as his healthcare surrogate and at this time she is the legal decision maker. Goals: Aggressive at this time. CODE STATUS: FULL CODE SYMPTOMS: * Chest pain-complained of generalized rib-area discomfort upon admission. At this time he is intubated, sedated and unable to provide an assessment of his own pain. Plan is for left heart catheterization when deemed stable by cardiology. * Dyspnea: He was extremely dyspneic on arrival to the emergency room and agreed to intubation himself. Currently dyspneic symptoms are being managed by the mechanical ventilator. He is tolerating spontaneous breathing trials well but due to his fragile condition and multiple comorbidities, a conservative approach is being taken to extubation. His daughter is in agreement with this as are the attending and consultants. SUMMARY This is an 87-year-old male with multiple comorbidities, severe aortic stenosis , in process of TAVR workup. If the remainder of his workup shows him to be a candidate family would like to continue towards that goal. If not, the daughter is amenable to comfort measures and hospice care to provide him with the best care and quality of life possible until his natural . He would be hospice appropriate if goals were consistent. . Palliative care will continue to follow the patient during hospital course as condition evolves, to assist patient/decision-maker with understanding of their medical conditions, weighing benefits/burdens of treatment options, for clarification of goals of treatment. Additionally will assist with any symptoms of palliative concern. . Thank you for the opportunity to participate in the care of Mr. Tracy. Attestation To help prompt me to consider important information that might be impacting today's encounter and assessment, information from prior notes written by myself or my colleagues may have been "brought forward" into today's note. My signature on this note, however, is an attestation that I personally performed the exam, history, and/or decision-making noted today, and, unless otherwise indicated, the interactions with patient, family, and staff as well as the review of records all occurred today. I also attest that the listed assessment and stated plan reflect my best clinical judgment today based on the combination of historical information, prior notes, and today's exam/ interactions. When time spent is documented, it refers only to time spent today by the signer, or if indicated, combined time spent today by collaborating physician/nurse practitioner. . Felicity Nam February 03, 2018 11:48 am
[2018-02-03 12:18] LABS: ALBUMIN 3.1 GM/DL (3.4-5.0); ALKALINE PHOSPHATASE 101 U/L (45-117); ALT (GPT) 273 U/L (12-78); AST (GOT) 371 U/L (15-37); BICARBONATE 25.5 MEQ/L (21.0-32.0); CALCIUM 8.9 MG/DL (8.5-10.1); CHLORIDE 89 MEQ/L (98-107); CREATININE 1.95 MG/DL (0.60-1.30); GLOMERULAR FILTRATION RATE 33 ML/MIN (>89); GLUCOSE,RANDOM 63 MG/DL (74-106); SODIUM (NA) 128 MEQ/L (136-145); TOTAL BILIRUBIN ADULT 1.1 MG/DL (0.2-1.0); TOTAL PROTEIN 5.6 GM/DL (6.4-8.2)
[2018-02-03 12:19] LABS: BLOOD UREA NITROGEN 30 MG/DL (7-18)
--- NOTE | 2018-02-03 17:35 | PD.WCN.NOT ---
Wound Consult Description: Received pressure ulcer consult for gluteal area from Doctor Suhas Communicated with: EMILEE Good 5th floor [facility] Recommendation: 1.Please cleanse wound to L gluteal cleft with normal saline and pat dry.Cleanse buttock of stool and urine with Remedy barrier wipes and apply Calazime skin protectant paste to bilateral buttock areas covering open wound BID and PRN 2. Turn and reposition patient every 2 hours and PRN for comfort and offloading of pressure from jerry prominences. Additional Information: Patient seen on 5th floor [facility] [place] evaluation of possible pressure ulcer to gluteal area. Patient was seen with Missy HICKMAN, pattern chart writer, and Osiel Good RN 5th floor [facility]. Patient was turned to L side with the moderate assistance of EMILEE Mckinnon, Patient, Missy HICKMAN, and pattern chart writer. Patient noted with small wound to L gluteal fold measuring ~1cm x ~2cm x ~0.1cm. Wound margins are jagged , wound presents with 100% pink tissue, no active drainage, or odor. Wound etiology is moisture and friction. Patient is also noted with R lower back deflated bulla that is dry and roofed. Wound measures ~4cm x~4cm. Skin barrier film applied to bulla and was left open to air. Skin protectant paste was appliedover moisture and fiction related wound on L gluteal fold and was left open to air. Patient was positioned off of bottom with pillow in place for support. Avelina Davis [facility] February 03, 2018 17:35
[2018-02-03] MEDS: CEFEPIME INJ 2,000 MG in SODIUM CHLORIDE 0.9% INJ 100 ML IV SCH (18:20)
[2018-02-03] MEDS: AZITHROMYCIN INJ 500 MG in SODIUM CHLOR 0.9% 250 ML INJ 250 ML IV SCH (18:21)
[2018-02-03] MEDS: HEPARIN SODIUM - SQ 10,000 UNITS/ML VIAL SQ SCH (20:46)
[2018-02-03] MEDS ORDERED: ATORVASTATIN 80 MG TAB PO SCH (21:00)
[2018-02-04] VITALS (17 sets, daily range): BP systolic 87–104; BP diastolic 55–66; PULSE 65–87; RESP 13–24; TEMP 97.6–99.1; O2SAT 98–100
[2018-02-04] MEDS: CHLORHEXIDINE GLUCONATE 2 % 1 PACK (2 CLOTHS) TOP SCH (03:23)
[2018-02-04] MEDS: RESP: ALBUTEROL 2.5 MG/IPRATROPIUM 0.5 MG NEB (SCH) INH ×4 (03:36→21:50)
--- NOTE | 2018-02-04 05:04 | RADRPT ---
EXAM DATE/TIME: 02/04/2018 04:11 [place] COMPARISON: CHEST SINGLE AP, February 03, 2018, 2:49. INDICATIONS : Shortness of breath, possible pulmonary disease. MEDICAL HISTORY : None. SURGICAL HISTORY : None. ENCOUNTER: Subsequent ACUITY: 1 day PAIN SCORE: Non-responsive. LOCATION: Bilateral chest FINDINGS: A single view of the chest demonstrates the lungs to be symmetrically aerated with persistent bibasil ar airspace disease/effusions. Heart size is prominent. Life support tubes are all stable in position . Left subclavian bipolar pacer is radiographically intact. Osseous structures are intact with some d egenerative spurring of the dorsal spine. CONCLUSION: Stable exam with bibasilar airspace disease/effusions. Danny Benedict MD on February 04, 2018 at 5:01 Board Certified Radiologist. This report was verified electronically.
[2018-02-04 07:13] LABS: AUTOMATED NEUTROPHIL # 6.5 TH/MM3 (1.8-7.7); BASOPHIL # 0.1 TH/MM3 (0-0.2); BASOPHIL % 0.8 % (0.0-2.0); EOSINOPHIL # 0.1 TH/MM3 (0-0.4); EOSINOPHIL % 1.6 % (0.0-4.0); HEMOGLOBIN 11.5 GM/DL (13.0-17.0); LYMPH % 8.6 % (9.0-44.0); LYMPHOCYTE # 0.7 TH/MM3 (1.0-4.8); MEAN CELL VOLUME 85.4 FL (80.0-100.0); MEAN CORPUSCULAR HEMOGLOBIN 28.8 PG (27.0-34.0); MEAN CORPUSCULAR HGB CONC 33.7 % (32.0-36.0); MEAN PLATELET VOLUME 11.3 FL (7.0-11.0); MONO % 9.9 % (0.0-8.0); MONOCYTE # 0.8 TH/MM3 (0-0.9); NEUT % 79.1 % (16.0-70.0); PLATELET COUNT 85 TH/MM3 (150-450); RED BLOOD COUNT 3.99 MIL/MM3 (4.50-5.90); RED CELL DISTRIBUTION WIDTH 16.3 % (11.6-17.2); WHITE BLOOD COUNT 8.2 TH/MM3 (4.0-11.0)
[2018-02-04] MEDS: CHLORHEXIDINE 0.12% (ORAL KIT) 15 ML CUP MT SCH ×2 (07:38→20:00)
[2018-02-04] MEDS: INSULIN ASPART SUPPLEMENTAL SCALE SQ SCH ×4 (07:39→21:00)
[2018-02-04] MEDS: SODIUM CHLORIDE 0.9% FLUSH 10 ML FLUSH IV FLUSH SCH ×2 (07:40→21:27)
[2018-02-04] MEDS: FAMOTIDINE 20 MG/2 ML VIAL IV PUSH SCH ×2 (07:41→21:28)
[2018-02-04] MEDS: CLOPIDOGREL 75 MG TAB PO SCH (07:41)
[2018-02-04] MEDS: CARVEDILOL 6.25 MG TAB PO SCH ×2 (07:41→21:00)
[2018-02-04] MEDS: ARTIFICIAL TEARS OPTH SOLN 15 ML BTL EACH EYE SCH ×3 (07:41→18:00)
[2018-02-04] MEDS: DOCUSATE SODIUM 50 MG/SENNA 8.6 MG TAB PO SCH ×2 (07:41→21:27)
[2018-02-04] MEDS: ASPIRIN 81 MG CHEW TAB CHEW SCH (07:42)
[2018-02-04] MEDS: HEPARIN SODIUM - SQ 10,000 UNITS/ML VIAL SQ SCH (07:42)
[2018-02-04 07:43] LABS: ALBUMIN 2.8 GM/DL (3.4-5.0); ALKALINE PHOSPHATASE 100 U/L (45-117); ALT (GPT) 233 U/L (12-78); AST (GOT) 245 U/L (15-37); BICARBONATE 25.5 MEQ/L (21.0-32.0); BLOOD UREA NITROGEN 33 MG/DL (7-18); CALCIUM 8.6 MG/DL (8.5-10.1); CHLORIDE 93 MEQ/L (98-107); CREATININE 1.96 MG/DL (0.60-1.30); GLOMERULAR FILTRATION RATE 33 ML/MIN (>89); GLUCOSE,RANDOM 126 MG/DL (74-106); MAGNESIUM 2.3 MG/DL (1.5-2.5); PHOSPHORUS 2.2 MG/DL (2.5-4.9); SODIUM (NA) 131 MEQ/L (136-145); TOTAL BILIRUBIN ADULT 0.8 MG/DL (0.2-1.0); TOTAL PROTEIN 5.5 GM/DL (6.4-8.2)
[2018-02-04] MEDS: fentaNYL DRIP 250 ML IV PRN (08:03)
[2018-02-04 09:33] LABS: ACANTHOCYTES 1+ (NORMAL)
--- NOTE | 2018-02-04 09:35 | MB ---
cc: Rafita Mukherjee MD DATE: 02/03/2018 REQUESTING PHYSICIAN: Dr. Elizabeth Dai REASON FOR CONSULTATION: Pulmonary management. HISTORY OF PRESENT ILLNESS: Mr. Tracy is a pleasant 87-year-old male with history of coronary artery disease, ischemic cardiomyopathy, severe aortic stenosis. The patient was being planned for TAVR. He follows with Dr. Orozco and also Dr. Kumar. I discussed with Dr. Kumar on his last admission and he was planning to have another stent placement by Dr. Orozco before being considered for TAVR. The patient was admitted in the hospital with complaining of the chest pain and back pain and the pain around the rib area. When he was admitted in the hospital, his lactic acid was 7. Sodium 122. The patient developed respiratory failure and intubated. His blood pressures are running low. Sedation is taken off and currently he is on CPAP. IMAGING: A chest x-ray shows bibasilar airspace disease, interval worsening and pleural effusion. ET tube is in good position. LABORATORY DATA: His WBC count is 25.8, hemoglobin 11.3, hematocrit 32.9, MCV 84, platelet count 88. Sodium 128, potassium 5.0, chloride 89, CO2 25, BUN 30, creatinine 1.95. Troponin 0.96. Blood gas 100%, pH 7.58, pCO2 of 22, pO2 510, bicarbonate 22. Now, he is weaned down to CPAP. His blood culture so far is negative. PAST MEDICAL HISTORY: Significant history of severe aortic stenosis, coronary artery disease, status post stent, severe aortic stenosis, AICD placement, pleural effusion. MEDICATIONS: He is currently taking heparin 5000 every 12 hours, famotidine 10 mg every 12 hours, Coreg 6.25 mg twice a day, aspirin 81 mg a day, Plavix 75 mg a day, albuterol/Atrovent nebulizer treatment, cefepime 2 grams every 24 hours, Zithromax 500 mg a day. ALLERGIES: NO KNOWN DRUG ALLERGIES. SOCIAL HISTORY: He has no history of smoking, drinks socially. FAMILY HISTORY: Noncontributory. REVIEW OF SYSTEMS: Can not assess. PHYSICAL EXAMINATION: GENERAL: Elderly male on ventilator, currently is on CPAP. VITAL SIGNS: His blood pressure 102/61, heart rate 66, respirations 16, temperature 98. HEENT: Showed pupils reactive to light. NECK: Supple. JVD not raised. CHEST: Equal bilaterally. He has decreased breath sounds at bases. Few basilar rales. HEART: S1, S2 normal. ABDOMEN: Soft, nondistended. Bowel sounds are present. EXTREMITIES: 1+ peripheral edema. IMPRESSION: 1. Ventilator-dependent respiratory failure. 2. Basal infiltrate or atelectasis. 3. Pleural effusion. 4. Severe aortic stenosis. 5. Coronary artery disease. 6. Ischemic cardiomyopathy. PLAN: The patient will be maintained on ventilator, currently on CPAP. We will let him rest on the machine and try to extubate as he tolerates. Continue his present antibiotic. Pleural effusion is small. We will monitor it. Check his cultures. Further treatment depending on the course in the hospital. Thank you, Dr. Dai, for this consult. MD CARMEN Carrington/DANNY , 08:24 PM , 08:46 PM MARIA R
--- NOTE | 2018-02-04 10:58 | HHI.CCPN ---
Subjective Remarks/Hospital Course This is a 87-year-old man who presents to the emergency department complaining of chest pain. He was reportedly doing physical therapy at home when he developed the symptoms. EMS describes his initial complaint is superficial back and chest pain around the rib cage, discussing with family member it initially started last night and continued throughout the day progressively getting worse. the patient's has a history of severe ischemic cardiomyopathy as well as severe aortic stenosis. He is being worked up now for TAVR. Initially was seen Dr. Rubio with [facility] heart group. When he left using a follow-up with Dr. Orozco. He has had multiple recent admissions for congestive heart failure including a recent one in [facility] on 01/27/2018. he apparently is also being evaluated by Dr. Carrizales to perform that TAVR. He had a heart cath done October 22 of this year where he had PCI to the mid and distal LAD with Dr. Rubio. He apparently is due to have a no other heart cath done this upcoming week with Dr. Carrizales for another stent in preparation for his TAVR. The patient received Lasix in the ED imaging and laboratory studies reveal a lactic acid of 7. Sodium levels 122 but reviewing his records from [facility] on 01/27 his sodium level at that time was 127. The patient was tachypneic, with a respiratory rate in the 30s and was intubated. Chest x-ray is pending. Upon my evaluation the patient was intubated sedated map running in the mid 80s. Critical care medicine was consulted. Subjective: 5/2: Afebrile. No acute events overnight. Propofol infusion discontinued. Patient remains on low-dose fentanyl infusion with a RASS of -1, plan for initiation of CPAP trials this a.m.. Aspirin, carvedilol medications continued. Atorvastatin held secondary to elevated liver enzymes. Repeat BMP pending. Lactic acid now downtrending. 5/3:Afebrile. Patient previously scheduled for cardiac cath creatinine noted to have a slight elevation from 1.7 on admission to 1.9, now placed on hold. Patient continued on CPAP trials for the last 24 hours continues without any respiratory difficulty though chest x-ray has a slight improvement. SBT trials this morning for possible extubation. Patient carvedilol haled this a.m. secondary to low blood pressure systolic in the 90's, now resolved. Urine output marginal last evening now slightly improved will continue to monitor. Patient alert following commands nodding head understanding discussion RASS -1. Objective Vital Signs Date Time Temp Pulse Resp B/P (MAP) Pulse Ox O2 Delivery O2 Flow Rate FiO2 02/04/18 09:19 99 35 02/04/18 08:00 75 02/04/18 04:00 98.5 15 87/55 (66) 02/02/18 20:23 Ventilator 02/02/18 17:24 3.00 Intake and Output 02/04/18 02/04/18 02/05/18 08:00 16:00 00:00 Intake Total 466 ml Output Total 225 ml Balance 241 ml Result Diagram: 02/04/18 0422 02/04/18 0442 Other Results Microbiology Date/Time Source Procedure Growth Status 02/02/18 18:50 Sputum Endotracheal Gram Stain - Final Complete 02/02/18 18:50 Sputum Endotracheal Sputum Culture - Final LIGHT GROWTH NORMAL RESPIRATORY SHEFALI Complete Imaging Last Impressions Chest X-Ray 02/03/18 0000 Signed Impressions: Service Date/Time: Saturday, February 03, 2018 02:49 - CONCLUSION: 1. Bibasilar airspace disease/effusions. There may be slight interval worsening, particularly on the right. 2. Stable cardiomegaly. 3. Postintubation. Endotracheal tube is positioned approximately 2 cm above the luna. Nasogastric tube enters the gastric lumen. Danny Benedict MD Last Impressions Chest X-Ray 02/02/18 1544 Signed Impressions: Service Date/Time: Friday, February 02, 2018 15:50 - CONCLUSION: Bilateral lower lobe consolidation. Blayne Sanchez MD Objective Remarks GENERAL: Elderly chronically ill-appearing gentleman intubated , awake nodding head to yes and no questions SKIN: Warm and dry. HEAD: Atraumatic. Normocephalic. EYES: Pupils equal and round. No scleral icterus. No injection or drainage. ENT: No nasal bleeding or discharge. Mucous membranes pink and moist. NECK: Trachea midline. No JVD. CARDIOVASCULAR: Normal rate, regular rhythm. RESPIRATORY: No accessory muscle use. Clear to auscultation. Breath sounds equal bilaterally. GASTROINTESTINAL: Abdomen soft, non-tender, nondistended. No guarding. MUSCULOSKELETAL: Extremities without clubbing, cyanosis, or edema. No obvious deformities. NEUROLOGICAL: Intubated and sedated. Currently on fentanyl infusion 25mcgs/kg/ hr. No gross focal/sensory deficits. Follows commands in all 4 extremities. A/P Problem List: (1) Aortic stenosis, severe ICD Code: I35.0 - Nonrheumatic aortic (valve) stenosis (2) Ischemic cardiomyopathy ICD Code: I25.5 - Ischemic cardiomyopathy Status: Chronic (3) Cardiogenic shock ICD Code: R57.0 - Cardiogenic shock Status: Acute (4) PAD (peripheral artery disease) ICD Code: I73.9 - Peripheral vascular disease, unspecified (5) CAD (coronary artery disease) ICD Code: I25.10 - Atherosclerotic heart disease of inupiat coronary artery without angina pectoris (6) ROBBIE (acute kidney injury) ICD Code: N17.9 - Acute kidney failure, unspecified Assessment and Plan Plan by systems: Neurologic: Fentanyl infusion to maintain ventilator synchrony, propofol discontinued 02/03 Neuro checks per ICU protocol Daily sedation vacation Tylenol 650 mg every 6 hours as needed for pain and/or fever Respiratory: Acute hypoxemic respiratory failure Patient intubated for 02/02 in the ED 02/04 chest [id number] lower lobe consolidation Sputum culture and antibiotics see below 02/04 continue CPAP trials, plan for SBT and possible extubation Ventilator bundle Duo nebs every 6 hours scheduled every 2 hours as needed [employer] following- Dr. Mukherjee Cardiovascular: Ischemic cardiomyopathy Severe aortic stenosis AICD Congestive heart failure Follow-up serial troponin level Telemetry-sinus rhythm Cardiology following -patient currently being worked up for TAVR. Tentative plan for possible cardiac catheterization prior to discharge S/P Cardiac catheterization (10/22/2017). RCA is dominant, but 100% occluded and fills from collaterals from the LAD. Left main is small, but patent. The LAD has significant tortuosity, with a patent stent in the proximal portion and mid LAD with 90% stenosis. Left circumflex has 2 patent stents with 50% stenosis. He underwent PCI of his LAD with a drug-eluting stent to the distal LAD. 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 02/03 Aspirin, carvedilol, Plavix home medications resumed. Atorvastatin held secondary to elevated LFT's Trend BNP 2091->2308 today Renal: ROBBIE Insert Maloney. -- Strict I/Os FEN/GI: Chronic hyponatremia Electrolyte derangement Patient received Lasix 40 mg IV 1 dose Noted elevation in creatinine 1.9 Lasix discontinued Begin tube feeds 5/2 IV fluids NS 42/hr discontinued Dietary consult for tube feeds Patient sodium level on 01/27/18 review of records from [facility] Hyperkalemia resolved potassium level 4.1 Heme/ID: INR 1.5 continue to trend Obtain sputum blood and urine culture if indicated Continue empiric antibiotics cefepime and azithromycin Endocrine: Glucose monitoring per ICU protocol, low-dose regimen -- SSI Msk: Wound care following- for gluteal blisters/skin breakdown Calazyme Prophylaxis: GI Prophylaxis Famotidine DVT Prophylaxis -- SCDs. Heparin subcu(/ placed on hold 11/06, thrombocytopenia) INR 1.6 Lines: IVs 2. Central line if indicated Palliative care has been also consulted to define goals of care. Dispo: my billing statement This patient remains critically ill with one or more organ systems which are or may become a threat to life. I have spent in excess of 30 minutes discontinuously in the care and management of this patient. This time is exclusive of procedures, and includes, but is not limited to, evaluation of the patient, review of the medical record, discussions with family, consultants, nursing staff, or respiratory therapy, and documentation in the medical record. Physician Elizabeth Kent MD February 04, 2018 10:58
--- NOTE | 2018-02-04 14:33 | HHI.HCPN ---
Reason for visit a. To assist with evaluation and management of symptoms including: Chest pain, dyspnea b. To assist medical decision maker(s) with: better understanding of current medical conditions; weighing benefits/burdens of medical treatment options; making medical treatment decisions. Subjective/Interval History Patient seen to follow-up symptoms of chest pain and dyspnea. Patient is awake on ventilator during assessment. He is able to nod yes or no. He denies any chest pain at this time. Patient complained of pain about the rib cage upon admission. Chest was palpated today with no reproducible chest pain. His troponin was found to be elevated on admission at 0.56, 0.91, 0.86 and he was evaluated by Dr. Orozco, who follows him for cardiology. He is pending left heart catheterization by Dr. Orozco as he has a known history of severe coronary artery disease and is undergoing workup for TAVR. This was discussed with Dr. Orozco today and due to his elevated creatinine and plan for extubation today, he wishes to allow him further time for stabilization and improvement of his renal function prior to undergoing catheterization. He is tolerating CPAP well, eupneic, symmetric respirations with adequate volumes. He denies shortness of breath, air hunger or cough... He remains on low-dose fentanyl for pain management which is being weaned. Once off fentanyl and awake, parameters will be attempted to assess for extubation. Currently dyspnea is managed on mechanical ventilation. This will require continued assessment once extubated due to his history of severe aortic stenosis and ischemic cardiomyopathy. . Family/friend interactions Spoke with his daughter, Kathrin, this morning at bedside. Discussed current labs and clinical status. Reviewed improving sodium and stable renal function. She remains optimistic that the patient can successfully progress through the TAVR process, in hopes that this will relieve his symptoms, but she is also realistic as to his age, comorbidities and potential complications. At this time, due to the pending TAVR procedure, she wishes him to remain a FULL CODE. At yesterday's meeting we did discuss hospice and she is open to hospice services once his aortic stenosis is treated, but she does wish to optimize his quality of life first. . Advance Directives Living Will: Copy in medical record Health Care Surrogate: Copy in medical record Durable Power of Health Care Assistant: Completed, but not made available Advance Directive Specifics Date completed: February 04, 2017 . Health Care Surrogate(s): Lizette Tracy . Alternate healthcare surrogate is Opal Metzger . Documented care wishes: Standard living will verbiage. . Objective Vital Signs Date Time Temp Pulse Resp B/P (MAP) Pulse Ox O2 Delivery O2 Flow Rate FiO2 02/04/18 13:22 99 Nasal Cannula 4 02/04/18 13:22 99 Nasal Cannula 3.00 02/04/18 12:00 67 02/04/18 12:00 35 02/04/18 12:00 98.3 65 15 103/59 (74) 99 02/04/18 10:00 73 02/04/18 10:00 35 02/04/18 09:19 99 35 02/04/18 08:00 99.1 75 15 104/64 (77) 100 02/04/18 08:00 75 02/04/18 08:00 35 02/04/18 06:00 74 02/04/18 04:00 35 02/04/18 04:00 98.5 72 15 87/55 (66) 99 02/04/18 04:00 80 02/04/18 03:36 99 35 02/04/18 02:00 75 02/04/18 00:38 100 35 02/04/18 00:00 35 02/04/18 00:00 98.6 72 13 94/57 (69) 99 02/04/18 00:00 70 02/03/18 22:00 68 02/03/18 21:22 100 35 02/03/18 20:00 98.0 72 10 77/55 (62) 100 02/03/18 20:00 35 02/03/18 20:00 72 02/03/18 18:00 62 02/03/18 16:04 100 35 02/03/18 16:00 35 02/03/18 16:00 66 02/03/18 16:00 98.0 69 10 102/61 (75) 98 Intake & Output 02/04/18 02/04/18 07:00 19:00 Intake Total 466 ml Output Total 225 ml Balance 241 ml Tube Feeding 466 ml Output Urine Total 225 ml # Bowel Movements 0 Physical Exam CONSTITUTIONAL/GENERAL: This is a thin, elderly, male patient, in no apparent distress. TUBES/LINES/DRAINS: PIV, ETT, Maloney, OGT SKIN: No jaundice, rashes, or lesions. Ecchymoses on upper extremities. No wounds seen anteriorly. Skin temperature appropriate. Not diaphoretic. HEAD: Atraumatic. Normocephalic. EYES: Pupils equal and round and reactive. No scleral icterus. No injection or drainage. Fundi not examined. ENT: Nose without bleeding or purulent drainage. NECK: Trachea midline. Supple, nontender. No palpable thyroid enlargement or nodularity. CARDIOVASCULAR: S1, S2, regular rhythm, controlled rate, 2/6 systolic ejection murmur at right sternal border. RESPIRATORY/CHEST: Symmetric, unlabored respirations. Occasional expiratory wheezing, diminished bases. GASTROINTESTINAL: Abdomen soft, nondistended. No hepato-splenomegaly, or palpable masses. No guarding. Bowel sounds present. GENITOURINARY: Without palpable bladder distension. Maloney catheter in place. MUSCULOSKELETAL: Extremities without clubbing, cyanosis, or edema. No mottling or clubbing. LYMPHATICS: No palpable cervical or supraclavicular adenopathy. NEUROLOGICAL: Intubated, awake, following commands, moves all extremities with equal strength and purpose. PSYCHIATRIC: Calm, appropriate. . Diagnostic Tests Laboratory . Laboratory Tests Test 02/02/18 15:50 02/02/18 16:19 02/02/18 16:20 02/02/18 18:31 White Blood Count 4.8 TH/MM3 (4.0-11.0) Red Blood Count 4.08 MIL/MM3 (4.50-5.90) Hemoglobin 11.9 GM/DL (13.0-17.0) Hematocrit 36.0 % (39.0-51.0) Mean Corpuscular Volume 88.2 FL (80.0-100.0) Mean Corpuscular Hemoglobin 29.1 PG (27.0-34.0) Mean Corpuscular Hemoglobin Concent 33.0 % (32.0-36.0) Red Cell Distribution Width 16.4 % (11.6-17.2) Platelet Count 124 TH/MM3 (150-450) Mean Platelet Volume 10.1 FL (7.0-11.0) Neutrophils (%) (Auto) 69.9 % (16.0-70.0) Lymphocytes (%) (Auto) 16.4 % (9.0-44.0) Monocytes (%) (Auto) 12.7 % (0.0-8.0) Eosinophils (%) (Auto) 0.5 % (0.0-4.0) Basophils (%) (Auto) 0.5 % (0.0-2.0) Neutrophils # (Auto) 3.3 TH/MM3 (1.8-7.7) Lymphocytes # (Auto) 0.8 TH/MM3 (1.0-4.8) Monocytes # (Auto) 0.6 TH/MM3 (0-0.9) Eosinophils # (Auto) 0.0 TH/MM3 (0-0.4) Basophils # (Auto) 0.0 TH/MM3 (0-0.2) CBC Comment DIFF FINAL Differential Comment Prothrombin Time 16.3 SEC (9.8-11.6) Prothromb Time International Ratio 1.6 RATIO Activated Partial Thromboplast Time 26.3 SEC (24.3-30.1) Blood Urea Nitrogen 25 MG/DL (7-18) Creatinine 2.00 MG/DL (0.60-1.30) Random Glucose 107 MG/DL (74-106) Total Protein 6.3 GM/DL (6.4-8.2) Albumin 3.3 GM/DL (3.4-5.0) Calcium Level 8.8 MG/DL (8.5-10.1) Magnesium Level 2.1 MG/DL (1.5-2.5) Alkaline Phosphatase 117 U/L (45-117) Aspartate Amino Transf (AST/SGOT) 251 U/L (15-37) Alanine Aminotransferase (ALT/SGPT) 144 U/L (12-78) Total Bilirubin 1.4 MG/DL (0.2-1.0) Sodium Level 122 MEQ/L (136-145) Potassium Level 6.6 MEQ/L (3.5-5.1) Chloride Level 86 MEQ/L (98-107) Carbon Dioxide Level 18.8 MEQ/L (21.0-32.0) Anion Gap 17 MEQ/L (5-15) Estimat Glomerular Filtration Rate 32 ML/MIN (>89) Troponin I 0.05 NG/ML (0.02-0.05) B-Type Natriuretic Peptide 2710 PG/ML (0-100) Blood Gas Puncture Site LT BRACHIAL LT BRACHIAL Blood Gas Patient Temperature 98.6 98.6 Blood Gas HCO3 16 mmol/L (22-26) 20 mmol/L (22-26) Blood Gas Base Excess -7.4 mmol/L (-2-2) -1.5 mmol/L (-2-2) Blood Gas Oxygen Saturation 98 % (90-100) 99 % (90-100) Arterial Blood pH 7.46 (7.380-7.420) 7.58 (7.380-7.420) Arterial Blood Partial Pressure CO2 23 mmHg (38-42) 22 mmHg (38-42) Arterial Blood Partial Pressure O2 151 mmHG (61-120) 510 mmHG (61-120) Arterial Blood Oxygen Content 16.2 Vol % (12.0-20.0) 16.4 Vol % (12.0-20.0) Arterial Blood Carboxyhemoglobin 1.4 % (0-4) 1.4 % (0-4) Arterial Blood Methemoglobin 0.4 % (0-2) 0.3 % (0-2) Blood Gas Hemoglobin 11.6 G/DL (12.0-16.0) 10.9 G/DL (12.0-16.0) Oxygen Delivery Device NASAL CANNULA VENTILATOR Blood Gas Liter Flow 4 L/M Blood Gas Inspired Oxygen % 100 % Lactic Acid Level 8.7 mmol/L (0.4-2.0) Blood Gas Ventilator Setting SEE COMMENTS Test 02/02/18 21:00 02/02/18 23:43 02/03/18 03:47 02/03/18 11:18 Nasal Screen MRSA (PCR) MRSA NOT DETECTED (NOT Sodium Level 127 MEQ/L (136-145) 128 MEQ/L (136-145) 128 MEQ/L (136-145) Lactic Acid Level 3.0 mmol/L (0.4-2.0) 2.3 mmol/L (0.4-2.0) Troponin I 0.56 NG/ML (0.02-0.05) 0.91 NG/ML (0.02-0.05) 0.86 NG/ML (0.02-0.05) White Blood Count 5.8 TH/MM3 (4.0-11.0) Red Blood Count 3.91 MIL/MM3 (4.50-5.90) Hemoglobin 11.3 GM/DL (13.0-17.0) Hematocrit 32.9 % (39.0-51.0) Mean Corpuscular Volume 84.2 FL (80.0-100.0) Mean Corpuscular Hemoglobin 28.8 PG (27.0-34.0) Mean Corpuscular Hemoglobin Concent 34.2 % (32.0-36.0) Red Cell Distribution Width 16.4 % (11.6-17.2) Platelet Count 88 TH/MM3 (150-450) Mean Platelet Volume 9.7 FL (7.0-11.0) Neutrophils (%) (Auto) 73.9 % (16.0-70.0) Lymphocytes (%) (Auto) 14.6 % (9.0-44.0) Monocytes (%) (Auto) 10.1 % (0.0-8.0) Eosinophils (%) (Auto) 0.5 % (0.0-4.0) Basophils (%) (Auto) 0.9 % (0.0-2.0) Neutrophils # (Auto) 4.3 TH/MM3 (1.8-7.7) Lymphocytes # (Auto) 0.9 TH/MM3 (1.0-4.8) Monocytes # (Auto) 0.6 TH/MM3 (0-0.9) Eosinophils # (Auto) 0.0 TH/MM3 (0-0.4) Basophils # (Auto) 0.1 TH/MM3 (0-0.2) CBC Comment AUTO DIFF Differential Comment AUTO DIFF CONFIRMED Platelet Estimate LOW (NORMAL) Platelet Morphology Comment NORMAL (NORMAL) Ovalocytes 1+ (NORMAL) Acanthocytes 1+ (NORMAL) Prothrombin Time 15.2 SEC (9.8-11.6) Prothromb Time International Ratio 1.5 RATIO Blood Urea Nitrogen 29 MG/DL (7-18) 30 MG/DL (7-18) Creatinine 1.75 MG/DL (0.60-1.30) 1.95 MG/DL (0.60-1.30) Random Glucose 86 MG/DL (74-106) 63 MG/DL (74-106) Total Protein 5.6 GM/DL (6.4-8.2) 5.6 GM/DL (6.4-8.2) Albumin 3.1 GM/DL (3.4-5.0) 3.1 GM/DL (3.4-5.0) Calcium Level 8.6 MG/DL (8.5-10.1) 8.9 MG/DL (8.5-10.1) Phosphorus Level 3.0 MG/DL (2.5-4.9) Magnesium Level 2.2 MG/DL (1.5-2.5) Alkaline Phosphatase 102 U/L (45-117) 101 U/L (45-117) Aspartate Amino Transf (AST/SGOT) 402 U/L (15-37) 371 U/L (15-37) Alanine Aminotransferase (ALT/SGPT) 259 U/L (12-78) 273 U/L (12-78) Total Bilirubin 1.1 MG/DL (0.2-1.0) 1.1 MG/DL (0.2-1.0) Potassium Level 4.1 MEQ/L (3.5-5.1) 5.0 MEQ/L (3.5-5.1) Chloride Level 89 MEQ/L (98-107) 89 MEQ/L (98-107) Carbon Dioxide Level 25.6 MEQ/L (21.0-32.0) 25.5 MEQ/L (21.0-32.0) Anion Gap 13 MEQ/L (5-15) 14 MEQ/L (5-15) Estimat Glomerular Filtration Rate 37 ML/MIN (>89) 33 ML/MIN (>89) B-Type Natriuretic Peptide 2091 PG/ML (0-100) Test 02/04/18 04:22 02/04/18 04:42 02/04/18 12:11 White Blood Count 8.2 TH/MM3 (4.0-11.0) Red Blood Count 3.99 MIL/MM3 (4.50-5.90) Hemoglobin 11.5 GM/DL (13.0-17.0) Hematocrit 34.0 % (39.0-51.0) Mean Corpuscular Volume 85.4 FL (80.0-100.0) Mean Corpuscular Hemoglobin 28.8 PG (27.0-34.0) Mean Corpuscular Hemoglobin Concent 33.7 % (32.0-36.0) Red Cell Distribution Width 16.3 % (11.6-17.2) Platelet Count 85 TH/MM3 (150-450) Mean Platelet Volume 11.3 FL (7.0-11.0) Neutrophils (%) (Auto) 79.1 % (16.0-70.0) Lymphocytes (%) (Auto) 8.6 % (9.0-44.0) Monocytes (%) (Auto) 9.9 % (0.0-8.0) Eosinophils (%) (Auto) 1.6 % (0.0-4.0) Basophils (%) (Auto) 0.8 % (0.0-2.0) Neutrophils # (Auto) 6.5 TH/MM3 (1.8-7.7) Lymphocytes # (Auto) 0.7 TH/MM3 (1.0-4.8) Monocytes # (Auto) 0.8 TH/MM3 (0-0.9) Eosinophils # (Auto) 0.1 TH/MM3 (0-0.4) Basophils # (Auto) 0.1 TH/MM3 (0-0.2) CBC Comment AUTO DIFF Differential Comment AUTO DIFF CONFIRMED Acanthocytes 1+ (NORMAL) B-Type Natriuretic Peptide 2308 PG/ML (0-100) Blood Urea Nitrogen 33 MG/DL (7-18) Creatinine 1.96 MG/DL (0.60-1.30) Random Glucose 126 MG/DL (74-106) Total Protein 5.5 GM/DL (6.4-8.2) Albumin 2.8 GM/DL (3.4-5.0) Calcium Level 8.6 MG/DL (8.5-10.1) Phosphorus Level 2.2 MG/DL (2.5-4.9) Magnesium Level 2.3 MG/DL (1.5-2.5) Alkaline Phosphatase 100 U/L (45-117) Aspartate Amino Transf (AST/SGOT) 245 U/L (15-37) Alanine Aminotransferase (ALT/SGPT) 233 U/L (12-78) Total Bilirubin 0.8 MG/DL (0.2-1.0) Sodium Level 131 MEQ/L (136-145) Potassium Level 3.8 MEQ/L (3.5-5.1) Chloride Level 93 MEQ/L (98-107) Carbon Dioxide Level 25.5 MEQ/L (21.0-32.0) Anion Gap 13 MEQ/L (5-15) Estimat Glomerular Filtration Rate 33 ML/MIN (>89) Result Diagram: 02/04/18 0422 02/04/18 0442 Microbiology Microbiology Date/Time Source Procedure Growth Status 02/02/18 17:00 Blood Peripheral Aerobic Blood Culture - Preliminary NO GROWTH IN 2 DAYS Resulted 02/02/18 17:00 Blood Peripheral Anaerobic Blood Culture - Preliminary NO GROWTH IN 2 DAYS Resulted 02/02/18 17:00 Blood Peripheral Aerobic Blood Culture - Preliminary NO GROWTH IN 2 DAYS Resulted 02/02/18 17:00 Blood Peripheral Anaerobic Blood Culture - Preliminary NO GROWTH IN 2 DAYS Resulted 02/02/18 18:50 Sputum Endotracheal Gram Stain - Final Complete 02/02/18 18:50 Sputum Endotracheal Sputum Culture - Final LIGHT GROWTH NORMAL RESPIRATORY SHEFALI Complete Imaging Last Impressions Chest X-Ray 02/04/18 0600 Signed Impressions: Service Date/Time: , February 04, 2018 04:11 - CONCLUSION: Stable exam with bibasilar airspace disease/effusions. Danny Benedict MD . Procedures 02/02: Endotracheal intubation. . Assessment and Plan Disease Oriented Problem List: (1) Cardiogenic shock (2) Aortic stenosis, severe (3) CAD (coronary artery disease) (4) Ischemic cardiomyopathy Symptom Scale: (1) Chest pain 0-10 Scale: Unable to quantify (Intubated, sedated) (2) Dyspnea and respiratory abnormalities 0-10 Scale: Unable to quantify (Intubated, sedated) Pertinent Non-Medical Issues Psychosocial:He was born and brought up in [place], finishing high school prior to entering the [employer]. He did not see combat, having entered the service between World War II and the Vietnam War. 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 He has 5 children from a prior marriage from whom he is estranged. His stepdaughter from his second marriage is his healthcare surrogate and DURABLE POWER OF CURRICULUM AND ASSESSMENT COORDINATOR. They reside in a home together and she provides him with necessary support required for his ADLs. Spiritual: Evangelical gabby. Legal: He has named his adopted daughter Kathrin as his healthcare surrogate. Ethical issues impacting care: None noted. . Important Contacts Daughter -Lizette Tracy Friend- Opal Metzger . Prognosis His prognosis is guarded. He is of advanced age at 87 years old with severe coronary artery disease, ischemic cardiomyopathy, severe aortic stenosis disease and COPD. It is his plan to go forward with TAVR for his aortic stenosis, with hope that this will relieve his symptoms enough to allow him to maintain his quality of life. As he has multiple compromised organs and is currently on a ventilator, he may suffer complications and decline prior to being able to achieve that. He still faces obstacles of studies involving dye, to include CT and cardiac catheterization, which could further compromise his renal function as well as the known complications of the procedures themselves. He would be hospice appropriate if goals become consistent. This was discussed with his daughter and she is aware of the services provided and will engage them at the point that he has completed his TAVR or been judged not a candidate. . Code Status: Full Code Plan PLAN: Legal decision maker: Patient is not capacitated to make his own decisions at this time as he is intubated. He has named his daughter,Kathrin as his healthcare surrogate and at this time she is the legal decision maker. Goals: Aggressive at this time. It is the patient's goal to undergo TAVR procedure due to his severe aortic stenosis. After optimizing his symptoms for quality of life, family is in favor of entertaining hospice services with a goal towards comfort for his remaining time. CODE STATUS: FULL CODE SYMPTOMS: * Chest pain-complained of generalized rib-area discomfort upon admission. He is awake on the ventilator today and denies chest pain at rest. Chest palpation did not reproduce recurrent symptoms. He is scheduled for left heart catheterization with aortic valve balloon valvuloplasty once deemed stable by cardiology. * Dyspnea: He denies any dyspnea this morning and is tolerating his CPAP trial well. He is at risk for recurrent dyspnea due to his severe aortic stenosis and COPD. He has had multiple hospitalizations over the past 6 months for acute dyspnea and is at risk for continued complications and decline. Patient and family are hopeful that undergoing the TAVR procedure will assist in managing his recurrent dyspnea. Chest x-ray shows bibasilar airspace disease and effusions. He is receiving furosemide intermittently, receiving his last dose of 40 mg on 02/02. This will be assessed on a daily basis and doses repeated as needed, per my discussion with Dr. Orozco. . Palliative care will continue to follow the patient during hospital course as condition evolves, to assist patient/decision-maker with understanding of their medical conditions, weighing benefits/burdens of treatment options, for clarification of goals of treatment. Additionally will assist with any symptoms of palliative concern. . Attestation To help prompt me to consider important information that might be impacting today's encounter and assessment, information from prior notes written by myself or my colleagues may have been "brought forward" into today's note. My signature on this note, however, is an attestation that I personally performed the exam, history, and/or decision-making noted today, and, unless otherwise indicated, the interactions with patient, family, and staff as well as the review of records all occurred today. I also attest that the listed assessment and stated plan reflect my best clinical judgment today based on the combination of historical information, prior notes, and today's exam/ interactions. When time spent is documented, it refers only to time spent today by the signer, or if indicated, combined time spent today by collaborating physician/nurse practitioner. . Felicity Nam February 04, 2018 14:33
--- NOTE | 2018-02-04 15:37 | HHI.PR ---
Subjective Remarks 87 YOWM with CMP,Severe ,pl eff, CAD, RF Extubated Weaned to NC Weak , mild sob No CP Objective Vital Signs Vital Signs Date Time Temp Pulse Resp B/P (MAP) Pulse Ox O2 Delivery O2 Flow Rate FiO2 02/04/18 14:00 87 02/04/18 13:22 99 Nasal Cannula 4 02/04/18 13:22 99 Nasal Cannula 3.00 02/04/18 12:00 67 02/04/18 12:00 35 02/04/18 12:00 98.3 65 15 103/59 (74) 99 02/04/18 10:00 73 02/04/18 10:00 35 02/04/18 09:19 99 35 02/04/18 08:00 99.1 75 15 104/64 (77) 100 02/04/18 08:00 75 02/04/18 08:00 35 02/04/18 06:00 74 02/04/18 04:00 35 02/04/18 04:00 98.5 72 15 87/55 (66) 99 02/04/18 04:00 80 02/04/18 03:36 99 35 02/04/18 02:00 75 02/04/18 00:38 100 35 02/04/18 00:00 35 02/04/18 00:00 98.6 72 13 94/57 (69) 99 02/04/18 00:00 70 02/03/18 22:00 68 02/03/18 21:22 100 35 02/03/18 20:00 98.0 72 10 77/55 (62) 100 02/03/18 20:00 35 02/03/18 20:00 72 02/03/18 18:00 62 02/03/18 16:04 100 35 02/03/18 16:00 35 02/03/18 16:00 66 02/03/18 16:00 98.0 69 10 102/61 (75) 98 I/O 02/03/18 02/03/18 02/03/18 02/04/18 02/04/18 02/04/18 06:59 14:59 22:59 06:59 14:59 22:59 Intake Total 525 ml 466 ml Output Total 700 ml 500 ml 225 ml Balance -700 ml 25 ml 241 ml Intake IV Total 350 ml Tube Feeding 175 ml 466 ml Output Urine Total 700 ml 500 ml 225 ml # Bowel Movements 0 0 0 Result Diagram: 02/04/1842102/04/18441 Objective Remarks GENERAL: Elderly WM, mild sob SKIN: Warm and dry. HEAD: Normocephalic. EYES: No scleral icterus. No injection or drainage. NECK: Supple, trachea midline. No JVD or lymphadenopathy. CARDIOVASCULAR: Regular rate and rhythm without murmurs, gallops, or rubs. RESPIRATORY: Breath sounds equal bilaterally. No accessory muscle use. GASTROINTESTINAL: Abdomen soft, non-tender, nondistended. MUSCULOSKELETAL: No cyanosis, or edema. BACK: Nontender without obvious deformity. No CVA tenderness. A/P Assessment and Plan IMPRESSION: 1. Ventilator-dependent respiratory failure. 2. Basal infiltrate or atelectasis. 3. Pleural effusion. 4. Severe aortic stenosis. 5. Coronary artery disease. 6. Ischemic cardiomyopathy. PLAN: Supplement 02 Aerosol nebs Cont Abx Palliative care following DW . Rafita Mukherjee MD February 04, 2018 15:37
--- NOTE | 2018-02-04 17:48 | PD.CARD.PN ---
Subjective Subjective Remarks Patient was seen earlier in the late morning, late entry note Urine output down, blood pressure mildly low Somewhat awake on the vent Lab work back towards normal, lactate down Objective Medications Current Medications Medications (Trade) Dose Ordered Sig/Eddy Route Start Time Stop Time Status Last Admin (NS Flush) 2 ml UNSCH PRN IV FLUSH 02/02/18 17:00 (NS Flush) 2 ml BID IV FLUSH 02/02/18 21:00 02/04/18 07:40 (Tylenol) 650 mg Q6H PRN PO 02/02/18 17:00 (Tears Naturale Opth Soln) 1 drop TID EACH EYE 02/02/18 18:00 02/04/18 12:19 (Zofran Inj) 4 mg Q6H PRN IV PUSH 02/02/18 17:00 (Duoneb Neb) 1 ampule Q6HR NEB INH 02/02/18 22:00 02/04/18 15:16 (Duoneb Neb) 1 ampule Q2HR NEB PRN INH 02/02/18 17:00 ([facility] Nursing Information) 1 Q361D XX 02/02/18 17:00 02/02/18 17:00 (Chlorhexidine 2% Cloth) 3 pack Taper DAILY@04 TOP 02/03/18 04:00 01/30/19 03:59 02/04/18 03:23 (Chlorhexidine 2% Cloth) 3 pack UNSCH PRN TOP 02/02/18 17:00 (Nia-Colace) 1 tab BID PO 02/02/18 21:00 02/04/18 07:41 (Milk Of Magnesia Liq) 30 ml Q12H PRN PO 02/02/18 17:00 (Senokot) 17.2 mg Q12H PRN PO 02/02/18 17:00 (Dulcolax Supp) 10 mg DAILY PRN RECTAL 02/02/18 17:00 (Lactulose Liq) 30 ml DAILY PRN PO 02/02/18 17:00 (NovoLOG SUPPLEMENTAL SCALE) 1 ACHS SLIDING SCALE SQ 02/02/18 17:00 (D50w (Vial) Inj) 50 ml UNSCH PRN IV PUSH 02/02/18 17:00 (Glucagon Inj) 1 mg UNSCH PRN OTHER 02/02/18 17:00 (Peridex 0.12% Liq) 15 ml BID@08,20 MT 02/02/18 20:00 02/04/18 07:38 Fentanyl Citrate 250 ml @ 5 mls/hr TITRATE PRN IV 02/02/18 17:00 02/04/18 08:03 Cefepime HCl 2000 mg/Sodium Chloride 100 ml @ 200 mls/hr Q24H IV 02/02/18 18:00 02/03/18 18:20 Azithromycin 500 mg/Sodium Chloride 250 ml @ 250 mls/hr Q24H IV 02/02/18 18:00 02/03/18 18:21 (Aspirin Chew) 81 mg DAILY CHEW 02/03/18 09:00 02/04/18 07:42 (Plavix) 75 mg DAILY PO 02/03/18 09:00 02/04/18 07:41 (Coreg) 6.25 mg BID PO 02/03/18 10:00 (Heparin Inj) 5,000 units Q12HR SQ 02/03/18 21:00 Future Hold 02/03/18 20:46 (Pepcid Inj) 10 mg Q12HR IV PUSH 02/03/18 21:00 02/04/18 07:41 Vital Signs / I&O Vital Signs Date Time Temp Pulse Resp B/P (MAP) Pulse Ox O2 Delivery O2 Flow Rate FiO2 02/04/18 14:00 87 02/04/18 13:22 99 Nasal Cannula 4 02/04/18 13:22 99 Nasal Cannula 3.00 02/04/18 12:00 67 02/04/18 12:00 35 02/04/18 12:00 98.3 65 15 103/59 (74) 99 02/04/18 10:00 73 02/04/18 10:00 35 02/04/18 09:19 99 35 02/04/18 08:00 99.1 75 15 104/64 (77) 100 02/04/18 08:00 75 02/04/18 08:00 35 02/04/18 06:00 74 02/04/18 04:00 35 02/04/18 04:00 98.5 72 15 87/55 (66) 99 02/04/18 04:00 80 02/04/18 03:36 99 35 02/04/18 02:00 75 02/04/18 00:38 100 35 02/04/18 00:00 35 02/04/18 00:00 98.6 72 13 94/57 (69) 99 02/04/18 00:00 70 02/03/18 22:00 68 02/03/18 21:22 100 35 02/03/18 20:00 98.0 72 10 77/55 (62) 100 02/03/18 20:00 35 02/03/18 20:00 72 02/03/18 18:00 62 I/O 02/03/18 02/03/18 02/03/18 02/04/18 02/04/18 02/04/18 07:00 15:00 23:00 07:00 15:00 23:00 Intake Total 525 ml 466 ml 10 ml Output Total 700 ml 500 ml 225 ml Balance -700 ml 25 ml 241 ml 10 ml Intake IV Total 350 ml 10 ml Tube Feeding 175 ml 466 ml Output Urine Total 700 ml 500 ml 225 ml # Bowel Movements 0 0 0 Physical Exam GENERAL: NAD, intubated and lightly sedated SKIN: Warm and dry. HEAD: Atraumatic. Normocephalic. EYES: Pupils equal and round. No scleral icterus. No injection or drainage. ENT: No nasal bleeding or discharge. Mucous membranes pink and moist. NECK: Trachea midline. No JVD. CARDIOVASCULAR: Regular rate and rhythm. 3/6 crescendo-decrescendo murmur to the RSB RESPIRATORY: No accessory muscle use. Decreased breath sounds bilaterally GASTROINTESTINAL: Abdomen soft, non-tender, nondistended. Hepatic and splenic margins not palpable. MUSCULOSKELETAL: Extremities without clubbing, cyanosis, or edema. No obvious deformities. NEUROLOGICAL: Awake and alert. No obvious cranial nerve deficits. Motor grossly within normal limits. Five out of 5 muscle strength in the arms and legs. Normal speech. PSYCHIATRIC: Appropriate mood and affect; insight and judgment normal. Laboratory Laboratory Tests Test 02/04/18 04:22 02/04/18 04:42 02/04/18 12:11 White Blood Count 8.2 TH/MM3 Red Blood Count 3.99 MIL/MM3 Hemoglobin 11.5 GM/DL Hematocrit 34.0 % Mean Corpuscular Volume 85.4 FL Mean Corpuscular Hemoglobin 28.8 PG Mean Corpuscular Hemoglobin Concent 33.7 % Red Cell Distribution Width 16.3 % Platelet Count 85 TH/MM3 Mean Platelet Volume 11.3 FL Neutrophils (%) (Auto) 79.1 % Lymphocytes (%) (Auto) 8.6 % Monocytes (%) (Auto) 9.9 % Eosinophils (%) (Auto) 1.6 % Basophils (%) (Auto) 0.8 % Neutrophils # (Auto) 6.5 TH/MM3 Lymphocytes # (Auto) 0.7 TH/MM3 Monocytes # (Auto) 0.8 TH/MM3 Eosinophils # (Auto) 0.1 TH/MM3 Basophils # (Auto) 0.1 TH/MM3 CBC Comment AUTO DIFF Differential Comment AUTO DIFF CONFIRMED Acanthocytes 1+ B-Type Natriuretic Peptide 2308 PG/ML Blood Urea Nitrogen 33 MG/DL Creatinine 1.96 MG/DL Random Glucose 126 MG/DL Total Protein 5.5 GM/DL Albumin 2.8 GM/DL Calcium Level 8.6 MG/DL Phosphorus Level 2.2 MG/DL Magnesium Level 2.3 MG/DL Alkaline Phosphatase 100 U/L Aspartate Amino Transf (AST/SGOT) 245 U/L Alanine Aminotransferase (ALT/SGPT) 233 U/L Total Bilirubin 0.8 MG/DL Sodium Level 131 MEQ/L Potassium Level 3.8 MEQ/L Chloride Level 93 MEQ/L Carbon Dioxide Level 25.5 MEQ/L Anion Gap 13 MEQ/L Estimat Glomerular Filtration Rate 33 ML/MIN Imaging Last 24 hours Impressions Chest X-Ray 02/04/18 0600 Signed Impressions: Service Date/Time: February 04:11 - CONCLUSION: Stable exam with bibasilar airspace disease/effusions. Danny Benedict MD Assessment and Plan Problem List: (1) Endotracheally intubated ICD Codes: Z97.8 - Presence of other specified devices (2) PAD (peripheral artery disease) ICD Codes: I73.9 - Peripheral vascular disease, unspecified (3) CAD (coronary artery disease) ICD Codes: I25.10 - Atherosclerotic heart disease of [place] coronary artery without angina pectoris (4) Aortic stenosis, severe ICD Codes: I35.0 - Nonrheumatic aortic (valve) stenosis (5) Ischemic cardiomyopathy ICD Codes: I25.5 - Ischemic cardiomyopathy Status: Chronic (6) Cardiogenic shock ICD Codes: R57.0 - Cardiogenic shock Status: Acute Assessment and Plan 1) Cardiogenic shock with poor perfusion 2) Lactate decreasing 3) ASA/Plavix for previous stent 4) Elevated trop, most likely type 2 due to overall illness/ Depending on hospital course, most likely cardiac catheterization before discharge Originally scheduled today but that was as an outpatient, would stabilize all lab work as well as clinically 5) Severe Depending on recovery, may benefit from balloon valvuloplasty before discharge Work up for TAVR Need to clarify goals with daughter, would not plan on TAVR if they are planning on hospice after procedure, not the goal of TAVR 6) Intubated Possible extubation today if stable, would not sanders with his overall illness 7) No statin due to elevated LFTs Martín Orozco DO February 04, 2018 17:47
[2018-02-04] MEDS: CEFEPIME INJ 2,000 MG in SODIUM CHLORIDE 0.9% INJ 100 ML IV SCH (18:25)
[2018-02-04] MEDS: AZITHROMYCIN INJ 500 MG in SODIUM CHLOR 0.9% 250 ML INJ 250 ML IV SCH (18:28)
[2018-02-05] VITALS (26 sets, daily range): BP systolic 95–113; BP diastolic 57–74; PULSE 66–100; RESP 15–37; TEMP 97.1–98.8; O2SAT 87–100
[2018-02-05] MEDS: CHLORHEXIDINE GLUCONATE 2 % 1 PACK (2 CLOTHS) TOP SCH (04:00)
[2018-02-05] MEDS: RESP: ALBUTEROL 2.5 MG/IPRATROPIUM 0.5 MG NEB (SCH) INH ×4 (04:23→21:07)
--- NOTE | 2018-02-05 05:34 | RADRPT ---
EXAM DATE/TIME: 02/05/2018 04:15 [place] COMPARISON: CHEST SINGLE AP, February 04, 2018, 4:11. INDICATIONS : Shortness of breath. MEDICAL HISTORY : Pacemaker. SURGICAL HISTORY : None. ENCOUNTER: Subsequent ACUITY: 4 - 6 days PAIN SCORE: Non-responsive. LOCATION: chest FINDINGS: There has been interval extubation and removal of nasogastric tube. Pacemaker device is noted with co ntrol pack over the left chest.. Hazy pleuroparenchymal density over the lower lung villarreal is slightl y worse than on previous exam with diminished lung volumes. Visualized cardiac contours are grossly u nchanged. CONCLUSION: Interval extubation with slight deterioration in the aeration Matthias Morgan MD on February 05, 2018 at 5:32 Board Certified Radiologist. This report was verified electronically.
[2018-02-05 05:49] LABS: AUTOMATED NEUTROPHIL # 5.2 TH/MM3 (1.8-7.7); BASOPHIL % 0.7 % (0.0-2.0); EOSINOPHIL # 0.4 TH/MM3 (0-0.4); EOSINOPHIL % 6.1 % (0.0-4.0); HEMATOCRIT 33.2 % (39.0-51.0); HEMOGLOBIN 10.9 GM/DL (13.0-17.0); LYMPH % 11.8 % (9.0-44.0); LYMPHOCYTE # 0.9 TH/MM3 (1.0-4.8); MEAN CELL VOLUME 86.7 FL (80.0-100.0); MEAN CORPUSCULAR HEMOGLOBIN 28.5 PG (27.0-34.0); MEAN CORPUSCULAR HGB CONC 32.9 % (32.0-36.0); MEAN PLATELET VOLUME 10.5 FL (7.0-11.0); MONO % 10.1 % (0.0-8.0); MONOCYTE # 0.7 TH/MM3 (0-0.9); NEUT % 71.3 % (16.0-70.0); PLATELET COUNT 81 TH/MM3 (150-450); RED BLOOD COUNT 3.82 MIL/MM3 (4.50-5.90); RED CELL DISTRIBUTION WIDTH 16.5 % (11.6-17.2); WHITE BLOOD COUNT 7.3 TH/MM3 (4.0-11.0)
[2018-02-05 06:20] LABS: BICARBONATE 28.3 MEQ/L (21.0-32.0); CALCIUM 8.3 MG/DL (8.5-10.1); CREATININE 1.57 MG/DL (0.60-1.30); MAGNESIUM 2.3 MG/DL (1.5-2.5); PHOSPHORUS 3.2 MG/DL (2.5-4.9)
[2018-02-05 07:44] LABS: ACANTHOCYTES 1+ (NORMAL); OVALOCYTES 2+ (NORMAL)
[2018-02-05] MEDS: CHLORHEXIDINE 0.12% (ORAL KIT) 15 ML CUP MT SCH ×2 (08:00→20:00)
[2018-02-05] MEDS: INSULIN ASPART SUPPLEMENTAL SCALE SQ SCH ×4 (08:00→21:35)
--- NOTE | 2018-02-05 08:00 | HHI.CCPN ---
Subjective Remarks/Hospital Course This is a 87-year-old man who presents to the emergency department complaining of chest pain. He was reportedly doing physical therapy at home when he developed the symptoms. EMS describes his initial complaint is superficial back and chest pain around the rib cage, discussing with family member it initially started last night and continued throughout the day progressively getting worse. the patient's has a history of severe ischemic cardiomyopathy as well as severe aortic stenosis. He is being worked up now for TAVR. Initially was seen Dr. Rubio with [facility]. When he left using a follow-up with Dr. Orozco. He has had multiple recent admissions for congestive heart failure including a recent one in [facility] on 01/27/2018. he apparently is also being evaluated by Dr. Carrizales to perform that TAVR. He had a heart cath done October 22 of this year where he had PCI to the mid and distal LAD with Dr. Rubio. He apparently is due to have a no other heart cath done this upcoming week with Dr. Carrizales for another stent in preparation for his TAVR. The patient received Lasix in the ED imaging and laboratory studies reveal a lactic acid of 7. Sodium levels 122 but reviewing his records from [facility] on 01/27 his sodium level at that time was 127. The patient was tachypneic, with a respiratory rate in the 30s and was intubated. Chest x-ray is pending. Upon my evaluation the patient was intubated sedated map running in the mid 80s. Critical care medicine was consulted. Subjective: 5/2: Afebrile. No acute events overnight. Propofol infusion discontinued. Patient remains on low-dose fentanyl infusion with a RASS of -1, plan for initiation of CPAP trials this a.m.. Aspirin, carvedilol medications continued. Atorvastatin held secondary to elevated liver enzymes. Repeat BMP pending. Lactic acid now downtrending. 5/3:Afebrile. Patient previously scheduled for cardiac cath creatinine noted to have a slight elevation from 1.7 on admission to 1.9, now placed on hold. Patient continued on CPAP trials for the last 24 hours continues without any respiratory difficulty though chest x-ray has a slight improvement. SBT trials this morning for possible extubation. Patient carvedilol haled this a.m. secondary to low blood pressure systolic in the 90's, now resolved. Urine output marginal last evening now slightly improved will continue to monitor. Patient alert following commands nodding head understanding discussion RASS -1. 5/4: Afebrile. Patient successfully passed SBT trials and extubated. This a.m. alert and oriented responding to questions. Advancement to heart healthy diet. Noted improvement in creatinine. Carvedilol held last evening secondary to low normal blood pressure. Objective Vital Signs Date Time Temp Pulse Resp B/P (MAP) Pulse Ox O2 Delivery O2 Flow Rate FiO2 02/05/18 06:00 69 02/05/18 04:00 98.8 22 112/67 (82) 100 02/04/18 21:50 Nasal Cannula 3.00 02/04/18 12:00 35 Intake and Output 02/05/18 02/05/18 02/06/18 08:00 16:00 00:00 Intake Total 120 ml Output Total 225 ml Balance -105 ml Result Diagram: 02/05/18 0501 02/05/18 0501 Other Results Microbiology Date/Time Source Procedure Growth Status 02/02/18 18:50 Sputum Endotracheal Gram Stain - Final Complete 02/02/18 18:50 Sputum Endotracheal Sputum Culture - Final LIGHT GROWTH NORMAL RESPIRATORY SHEFALI Complete Imaging Last Impressions Chest X-Ray 02/03/18 0000 Signed Impressions: Service Date/Time: Saturday, February 03, 2018 02:49 - CONCLUSION: 1. Bibasilar airspace disease/effusions. There may be slight interval worsening, particularly on the right. 2. Stable cardiomegaly. 3. Postintubation. Endotracheal tube is positioned approximately 2 cm above the luna. Nasogastric tube enters the gastric lumen. Danny Benedict MD Last Impressions Chest X-Ray 02/02/18 1544 Signed Impressions: Service Date/Time: Friday, February 02, 2018 15:50 - CONCLUSION: Bilateral lower lobe consolidation. Blayne Sanchez MD Objective Remarks GENERAL: Elderly chronically ill-appearing gentleman awake, hard of hearing, spanning to questions appropriately SKIN: Warm and dry. HEAD: Atraumatic. Normocephalic. EYES: Pupils equal and round. No scleral icterus. No injection or drainage. ENT: No nasal bleeding or discharge. Mucous membranes pink and moist. NECK: Trachea midline. No JVD. CARDIOVASCULAR: Normal rate, regular rhythm. RESPIRATORY: No accessory muscle use. Clear to auscultation. Breath sounds equal bilaterally. GASTROINTESTINAL: Abdomen soft, non-tender, nondistended. No guarding. MUSCULOSKELETAL: Extremities without clubbing, cyanosis, or edema. No obvious deformities. NEUROLOGICAL: GCS 15. no gross focal/sensory deficits. Follows commands in all 4 extremities. A/P Problem List: (1) Aortic stenosis, severe ICD Code: I35.0 - Nonrheumatic aortic (valve) stenosis (2) Ischemic cardiomyopathy ICD Code: I25.5 - Ischemic cardiomyopathy Status: Chronic (3) Cardiogenic shock ICD Code: R57.0 - Cardiogenic shock Status: Acute (4) PAD (peripheral artery disease) ICD Code: I73.9 - Peripheral vascular disease, unspecified (5) CAD (coronary artery disease) ICD Code: I25.10 - Atherosclerotic heart disease of [place] coronary artery without angina pectoris (6) ROBBIE (acute kidney injury) ICD Code: N17.9 - Acute kidney failure, unspecified Assessment and Plan Plan by systems: Neurologic: Neuro checks per ICU protocol Avoid sedatives Tylenol 650 mg every 6 hours as needed for pain and/or fever Respiratory: Acute hypoxemic respiratory failure-resolved Patient intubated for 02/02 in the ED, extubated 02/04 02/04 chest [id number] lower lobe consolidation Sputum culture and antibiotics see below 02/04 extubation Duo nebs every 6 hours scheduled every 2 hours as needed Processing Manager following- Dr. Mukherjee Cardiovascular: Ischemic cardiomyopathy Severe aortic stenosis AICD Congestive heart failure Follow-up serial troponin level Telemetry-sinus rhythm Cardiology following -patient currently being worked up for TAVR. Tentative plan for possible cardiac catheterization prior to discharge S/P Cardiac catheterization (10/22/2017). RCA is dominant, but 100% occluded and fills from collaterals from the LAD. Left main is small, but patent. The LAD has significant tortuosity, with a patent stent in the proximal portion and mid LAD with 90% stenosis. Left circumflex has 2 patent stents with 50% stenosis. He underwent PCI of his LAD with a drug-eluting stent to the distal LAD. 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 / Aspirin, carvedilol, Plavix home medications resumed. Atorvastatin held secondary to elevated LFT's Renal: ROBBIE Maintain Maloney. -- Strict I/Os FEN/GI: Chronic hyponatremia Electrolyte derangement Patient received Lasix 40 mg IV 1 dose Noted elevation in creatinine 1.9 Lasix discontinued Begin tube feeds 5/2 IV fluids NS 42/hr discontinued Heart healthy diet Patient sodium level on 01/27/18 review of records from [facility] Hyperkalemia resolved potassium level 4.1 Heme/ID: Obtain sputum blood and urine culture if indicated Continue empiric antibiotics cefepime and azithromycin Endocrine: Glucose monitoring per ICU protocol, low-dose regimen -- SSI Msk: Wound care following- for gluteal blisters/skin breakdown Calazyme Prophylaxis: GI Prophylaxis Famotidine DVT Prophylaxis -- SCDs. Heparin subcu(/3 placed on hold 11/06, thrombocytopenia) INR 1.6 Lines: IVs 2. Central line if indicated Palliative care is following to define goals of care. Dispo: Level [facility] Physician Elizabeth Kent MD February 05, 2018 08:00
[2018-02-05] MEDS: CARVEDILOL 6.25 MG TAB PO SCH ×2 (08:55→20:32)
[2018-02-05] MEDS: DOCUSATE SODIUM 50 MG/SENNA 8.6 MG TAB PO SCH ×2 (08:55→20:32)
[2018-02-05] MEDS: ASPIRIN 81 MG CHEW TAB CHEW SCH (08:55)
[2018-02-05] MEDS: FAMOTIDINE 20 MG/2 ML VIAL IV PUSH SCH ×2 (08:56→20:32)
[2018-02-05] MEDS: SODIUM CHLORIDE 0.9% FLUSH 10 ML FLUSH IV FLUSH SCH ×2 (09:00→20:35)
[2018-02-05] MEDS: CLOPIDOGREL 75 MG TAB PO SCH (09:00)
[2018-02-05] MEDS: ARTIFICIAL TEARS OPTH SOLN 15 ML BTL EACH EYE SCH ×3 (09:00→18:00)
--- NOTE | 2018-02-05 12:39 | PD.CARD.PN ---
Subjective Subjective Remarks Extubated and doing well No chest pain/SOB Objective Medications Current Medications Medications (Trade) Dose Ordered Sig/Eddy Route Start Time Stop Time Status Last Admin (NS Flush) 2 ml UNSCH PRN IV FLUSH 02/02/18 17:00 (NS Flush) 2 ml BID IV FLUSH 02/02/18 21:00 02/05/18 09:00 (Tylenol) 650 mg Q6H PRN PO 02/02/18 17:00 (Tears Naturale Opth Soln) 1 drop TID EACH EYE 02/02/18 18:00 02/05/18 09:00 (Zofran Inj) 4 mg Q6H PRN IV PUSH 02/02/18 17:00 (Duoneb Neb) 1 ampule Q6HR NEB INH 02/02/18 22:00 02/05/18 08:22 (Duoneb Neb) 1 ampule Q2HR NEB PRN INH 02/02/18 17:00 [place] 1 Q361D XX 02/02/18 17:00 02/02/18 17:00 (Chlorhexidine 2% Cloth) 3 pack Taper DAILY@04 TOP 02/03/18 04:00 01/30/19 03:59 02/05/18 04:00 (Chlorhexidine 2% Cloth) 3 pack UNSCH PRN TOP 02/02/18 17:00 (Nia-Colace) 1 tab BID PO 02/02/18 21:00 02/05/18 08:55 (Milk Of Magnesia Liq) 30 ml Q12H PRN PO 02/02/18 17:00 (Senokot) 17.2 mg Q12H PRN PO 02/02/18 17:00 (Dulcolax Supp) 10 mg DAILY PRN RECTAL 02/02/18 17:00 (Lactulose Liq) 30 ml DAILY PRN PO 02/02/18 17:00 (NovoLOG SUPPLEMENTAL SCALE) 1 ACHS SLIDING SCALE SQ 02/02/18 17:00 (D50w (Vial) Inj) 50 ml UNSCH PRN IV PUSH 02/02/18 17:00 (Glucagon Inj) 1 mg UNSCH PRN OTHER 02/02/18 17:00 (Peridex 0.12% Liq) 15 ml BID@08,20 MT 5/1/18 20:00 02/05/18 08:00 Fentanyl Citrate 250 ml @ 5 mls/hr TITRATE PRN IV 02/02/18 17:00 02/04/18 08:03 Cefepime HCl 2000 mg/Sodium Chloride 100 ml @ 200 mls/hr Q24H IV 02/02/18 18:00 02/04/18 18:25 Azithromycin 500 mg/Sodium Chloride 250 ml @ 250 mls/hr Q24H IV 02/02/18 18:00 02/04/18 18:28 (Aspirin Chew) 81 mg DAILY CHEW 02/03/18 09:00 02/05/18 08:55 (Plavix) 75 mg DAILY PO 02/03/18 09:00 02/05/18 09:00 (Coreg) 6.25 mg BID PO 02/03/18 10:00 02/05/18 08:55 (Heparin Inj) 5,000 units Q12HR SQ 02/03/18 21:00 Future Hold 02/03/18 20:46 (Pepcid Inj) 10 mg Q12HR IV PUSH 02/03/18 21:00 02/05/18 08:56 Vital Signs / I&O Vital Signs Date Time Temp Pulse Resp B/P (MAP) Pulse Ox O2 Delivery O2 Flow Rate FiO2 02/05/18 10:00 69 02/05/18 08:22 98 Nasal Cannula 2.00 02/05/18 08:00 98.8 67 22 108/63 (78) 100 02/05/18 08:00 69 02/05/18 07:59 98.8 67 22 108/63 (78) 100 02/05/18 07:00 100 Nasal Cannula 2.00 02/05/18 06:00 69 02/05/18 04:00 98.8 76 22 112/67 (82) 100 02/05/18 04:00 80 02/05/18 02:00 76 02/05/18 00:00 75 02/05/18 00:00 97.8 75 37 99/63 (75) 90 02/04/18 22:00 74 02/04/18 21:50 98 Nasal Cannula 3.00 02/04/18 20:00 97.6 79 24 97/66 (76) 100 02/04/18 20:00 79 02/04/18 18:00 73 02/04/18 18:00 100 Nasal Cannula 2.00 02/04/18 16:00 98.5 69 22 96/57 (70) 99 02/04/18 16:00 69 02/04/18 14:00 87 02/04/18 13:22 99 Nasal Cannula 4 02/04/18 13:22 99 Nasal Cannula 3.00 02/04/18 13:20 100 Nasal Cannula 3.00 I/O 02/04/18 02/04/18 02/04/18 02/05/18 02/05/18 02/05/18 07:00 15:00 23:00 07:00 15:00 23:00 Intake Total 466 ml 10 ml 350 ml 120 ml Output Total 225 ml 325 ml 225 ml Balance 241 ml 10 ml 25 ml -105 ml Intake Oral 120 ml IV Total 10 ml 350 ml Tube Feeding 466 ml 0 ml 0 ml Output Urine Total 225 ml 325 ml 225 ml # Bowel Movements 0 0 0 Physical Exam GENERAL: NAD, AAOx3 SKIN: Warm and dry. HEAD: Atraumatic. Normocephalic. EYES: Pupils equal and round. No scleral icterus. No injection or drainage. ENT: No nasal bleeding or discharge. Mucous membranes pink and moist. NECK: Trachea midline. No JVD. CARDIOVASCULAR: Regular rate and rhythm. 3/6 crescendo-decrescendo murmur to the RSB RESPIRATORY: No accessory muscle use. Decreased breath sounds bilaterally GASTROINTESTINAL: Abdomen soft, non-tender, nondistended. Hepatic and splenic margins not palpable. MUSCULOSKELETAL: Extremities without clubbing, cyanosis, or edema. No obvious deformities. NEUROLOGICAL: Awake and alert. No obvious cranial nerve deficits. Motor grossly within normal limits. Five out of 5 muscle strength in the arms and legs. Normal speech. PSYCHIATRIC: Appropriate mood and affect; insight and judgment normal. Laboratory Laboratory Tests Test 02/05/18 05:01 02/05/18 08:13 White Blood Count 7.3 TH/MM3 Red Blood Count 3.82 MIL/MM3 Hemoglobin 10.9 GM/DL Hematocrit 33.2 % Mean Corpuscular Volume 86.7 FL Mean Corpuscular Hemoglobin 28.5 PG Mean Corpuscular Hemoglobin Concent 32.9 % Red Cell Distribution Width 16.5 % Platelet Count 81 TH/MM3 Mean Platelet Volume 10.5 FL Neutrophils (%) (Auto) 71.3 % Lymphocytes (%) (Auto) 11.8 % Monocytes (%) (Auto) 10.1 % Eosinophils (%) (Auto) 6.1 % Basophils (%) (Auto) 0.7 % Neutrophils # (Auto) 5.2 TH/MM3 Lymphocytes # (Auto) 0.9 TH/MM3 Monocytes # (Auto) 0.7 TH/MM3 Eosinophils # (Auto) 0.4 TH/MM3 Basophils # (Auto) 0.0 TH/MM3 CBC Comment AUTO DIFF Differential Comment AUTO DIFF CONFIRMED Platelet Estimate LOW Platelet Morphology Comment NORMAL Ovalocytes 2+ Acanthocytes 1+ Blood Urea Nitrogen 29 MG/DL Creatinine 1.57 MG/DL Random Glucose 79 MG/DL Calcium Level 8.3 MG/DL Phosphorus Level 3.2 MG/DL Magnesium Level 2.3 MG/DL Sodium Level 133 MEQ/L Potassium Level 3.6 MEQ/L Chloride Level 94 MEQ/L Carbon Dioxide Level 28.3 MEQ/L Anion Gap 11 MEQ/L Estimat Glomerular Filtration Rate 42 ML/MIN Imaging Last 24 hours Impressions Chest X-Ray 02/05/18 0600 Signed Impressions: Service Date/Time: Monday, February 05, 2018 04:15 - CONCLUSION: Interval extubation with slight deterioration in the aeration Matthias Morgan MD Assessment and Plan Problem List: (1) Endotracheally intubated ICD Codes: Z97.8 - Presence of other specified devices (2) PAD (peripheral artery disease) ICD Codes: I73.9 - Peripheral vascular disease, unspecified (3) CAD (coronary artery disease) ICD Codes: I25.10 - Atherosclerotic heart disease of [place] coronary artery without angina pectoris (4) Aortic stenosis, severe ICD Codes: I35.0 - Nonrheumatic aortic (valve) stenosis (5) Ischemic cardiomyopathy ICD Codes: I25.5 - Ischemic cardiomyopathy Status: Chronic (6) Cardiogenic shock ICD Codes: R57.0 - Cardiogenic shock Status: Acute Assessment and Plan 1) Cardiogenic shock with poor perfusion Resolved 2) Lactate decreasing Resolved 3) ASA/Plavix for previous stent 4) Elevated trop, most likely type 2 due to overall illness/ Depending on hospital course, most likely cardiac catheterization before discharge Would allow lab work to stabilize, plan for early next week 5) Severe Depending on recovery, may benefit from balloon valvuloplasty before discharge Work up for TAVR 02/05 Discussed with daughter over the phone, miscommunication about her saying hospice after TAVR, she just wants to make sure that if he does not do well at any stage that hospice can help out 6) No statin due to elevated LFTs Martín Orozco DO February 05, 2018 12:39
[2018-02-05 17:09] LABS: HEPARIN INDUCED PLATELET AB NEGATIVE (NEGATIVE)
--- NOTE | 2018-02-05 18:07 | HHI.PR ---
Subjective Remarks 87 YOWM with CMP,Severe ,pl eff, CAD, RF Extubated Weaned to NC Weak , mild sob No CP Tolerates Po Daughter at BS. Objective Vital Signs Vital Signs Date Time Temp Pulse Resp B/P (MAP) Pulse Ox O2 Delivery O2 Flow Rate FiO2 02/05/18 16:00 97.2 84 18 108/71 (83) 98 02/05/18 14:00 85 24 96/66 (76) 87 02/05/18 14:00 69 02/05/18 13:30 86 24 97/64 (75) 96 02/05/18 13:00 80 23 107/61 (76) 98 02/05/18 12:30 71 18 100/60 (73) 100 02/05/18 12:00 69 02/05/18 12:00 75 34 102/69 (80) 95 02/05/18 12:00 98.6 80 22 107/61 (76) 96 02/05/18 11:30 76 21 95/65 (75) 100 02/05/18 11:01 72 22 97/59 (72) 100 02/05/18 11:00 70 21 98 02/05/18 10:30 75 22 102/64 (77) 98 02/05/18 10:00 69 02/05/18 10:00 71 35 102/57 (72) 98 02/05/18 09:30 82 22 109/62 (78) 94 02/05/18 09:00 79 29 107/66 (80) 96 02/05/18 08:30 75 19 113/74 (87) 100 02/05/18 08:22 98 Nasal Cannula 2.00 02/05/18 08:00 98.8 67 22 108/63 (78) 100 02/05/18 08:00 66 15 108/65 (79) 98 02/05/18 08:00 69 02/05/18 07:59 98.8 67 22 108/63 (78) 100 02/05/18 07:00 100 Nasal Cannula 2.00 02/05/18 06:00 69 02/05/18 04:00 98.8 76 22 112/67 (82) 100 02/05/18 04:00 80 02/05/18 02:00 76 02/05/18 00:00 75 02/05/18 00:00 97.8 75 37 99/63 (75) 90 02/04/18 22:00 74 02/04/18 21:50 98 Nasal Cannula 3.00 02/04/18 20:00 97.6 79 24 97/66 (76) 100 02/04/18 20:00 79 I/O 02/04/18 02/04/18 02/04/18 02/05/18 02/05/18 02/05/18 07:00 15:00 23:00 07:00 15:00 23:00 Intake Total 466 ml 10 ml 350 ml 120 ml 240 ml Output Total 225 ml 325 ml 225 ml 350 ml Balance 241 ml 10 ml 25 ml -105 ml -350 ml 240 ml Intake Oral 120 ml 240 ml IV Total 10 ml 350 ml Tube Feeding 466 ml 0 ml 0 ml Output Urine Total 225 ml 325 ml 225 ml 350 ml # Voids 1 # Bowel Movements 0 0 0 Result Diagram: 02/05/18 0501 02/05/18 0501 Objective Remarks GENERAL: Elderly WM, mild sob SKIN: Warm and dry. HEAD: Normocephalic. EYES: No scleral icterus. No injection or drainage. NECK: Supple, trachea midline. No JVD or lymphadenopathy. CARDIOVASCULAR: Regular rate and rhythm without murmurs, gallops, or rubs. RESPIRATORY: Breath sounds equal bilaterally. No accessory muscle use. GASTROINTESTINAL: Abdomen soft, non-tender, nondistended. MUSCULOSKELETAL: No cyanosis, or edema. BACK: Nontender without obvious deformity. No CVA tenderness. A/P Assessment and Plan IMPRESSION: 1. Ventilator-dependent respiratory failure. 2. Basal infiltrate or atelectasis. 3. Pleural effusion. 4. Severe aortic stenosis. 5. Coronary artery disease. 6. Ischemic cardiomyopathy. PLAN: Supplement 02 Aerosol nebs Cont Abx Palliative care following Stable from Pulm standpoint Available prn over weekend Rafita Mukherjee MD February 05, 2018 18:07
[2018-02-05] MEDS: CEFEPIME INJ 2,000 MG in SODIUM CHLORIDE 0.9% INJ 100 ML IV SCH (18:12)
[2018-02-05] MEDS: AZITHROMYCIN INJ 500 MG in SODIUM CHLOR 0.9% 250 ML INJ 250 ML IV SCH (19:05)
[2018-02-06] VITALS (7 sets, daily range): BP systolic 95–107; BP diastolic 61–66; PULSE 72–77; RESP 18–20; TEMP 97.3–97.8; O2SAT 96–100
[2018-02-06] MEDS: CHLORHEXIDINE GLUCONATE 2 % 1 PACK (2 CLOTHS) TOP SCH (05:11)
[2018-02-06] MEDS: RESP: ALBUTEROL 2.5 MG/IPRATROPIUM 0.5 MG NEB (SCH) INH ×3 (05:30→15:02)
[2018-02-06] MEDS: CHLORHEXIDINE 0.12% (ORAL KIT) 15 ML CUP MT SCH (08:00)
[2018-02-06] MEDS: INSULIN ASPART SUPPLEMENTAL SCALE SQ SCH ×3 (08:00→17:00)
[2018-02-06] MEDS: ARTIFICIAL TEARS OPTH SOLN 15 ML BTL EACH EYE SCH ×3 (09:00→17:55)
[2018-02-06 09:20] LABS: BICARBONATE 25.7 MEQ/L (21.0-32.0); CALCIUM 8.8 MG/DL (8.5-10.1); CREATININE 1.66 MG/DL (0.60-1.30)
[2018-02-06] MEDS: SODIUM CHLORIDE 0.9% FLUSH 10 ML FLUSH IV FLUSH SCH (10:39)
[2018-02-06] MEDS: DOCUSATE SODIUM 50 MG/SENNA 8.6 MG TAB PO SCH (10:40)
[2018-02-06] MEDS: CLOPIDOGREL 75 MG TAB PO SCH (10:40)
[2018-02-06] MEDS: CARVEDILOL 6.25 MG TAB PO SCH (10:40)
[2018-02-06] MEDS: FAMOTIDINE 20 MG/2 ML VIAL IV PUSH SCH (10:41)
[2018-02-06] MEDS: ASPIRIN 81 MG CHEW TAB CHEW SCH (10:41)
--- NOTE | 2018-02-06 11:09 | HHI.PR ---
Subjective Remarks Follow up respiratory failure, cardiomyopathy, aortic stenosis. Patient has no complaints at this time. Denies chest pain, dyspnea, nausea, vomiting. Objective Vitals Vital Signs Date Time Temp Pulse Resp B/P (MAP) Pulse Ox O2 Delivery O2 Flow Rate FiO2 02/06/18 09:50 96 Nasal Cannula 2.00 02/06/18 08:00 97.8 72 18 104/64 (77) 99 02/06/18 04:45 Nasal Cannula 2.00 02/06/18 04:45 97.3 77 20 95/66 (76) 100 02/06/18 04:01 75 02/06/18 00:01 75 02/05/18 23:50 97.9 83 18 109/67 (81) 99 02/05/18 23:50 Nasal Cannula 2.00 02/05/18 21:07 98 Nasal Cannula 2.00 02/05/18 20:30 97.1 93 20 102/72 (82) 100 02/05/18 20:30 Nasal Cannula 2.00 02/05/18 20:00 100 02/05/18 16:00 97.2 84 18 108/71 (83) 98 02/05/18 15:00 96 Nasal Cannula 2.00 35 02/05/18 15:00 97 02/05/18 14:00 85 24 96/66 (76) 87 02/05/18 14:00 69 02/05/18 13:30 86 24 97/64 (75) 96 02/05/18 13:00 80 23 107/61 (76) 98 02/05/18 12:30 71 18 100/60 (73) 100 02/05/18 12:00 69 02/05/18 12:00 75 34 102/69 (80) 95 02/05/18 12:00 98.6 80 22 107/61 (76) 96 02/05/18 11:30 76 21 95/65 (75) 100 I/O 02/05/18 02/05/18 02/05/18 02/06/18 02/06/18 02/06/18 06:59 14:59 22:59 06:59 14:59 22:59 Intake Total 120 ml 240 ml 0 ml Output Total 225 ml 350 ml 50 ml Balance -105 ml -350 ml 240 ml -50 ml Intake Oral 120 ml 240 ml 0 ml Tube Feeding 0 ml Output Urine Total 225 ml 350 ml 50 ml # Voids 1 # Bowel Movements 0 0 Result Diagram: 02/05/18 0501 02/06/18 0821 Imaging Last Impressions Chest X-Ray 02/05/18 0600 Signed Impressions: Service Date/Time: Monday, February 05, 2018 04:15 - CONCLUSION: Interval extubation with slight deterioration in the aeration Matthias Morgan MD Objective Remarks General: Elderly male in no acute distress. Hard of hearing. Heart: Regular rate and rhythm. No murmur. Lungs: Clear to auscultation bilaterally. No wheezes, rales, or rhonchi. Breathing is nonlabored. Abdomen: Soft, nontender, nondistended. Extremities: No lower extremity edema. Psych: Alert and oriented. Neuro: Normal speech. No focal deficits noted. Procedures None Urinary Catheter: No Vascular Central Line Catheter: No A/P Assessment and Plan 1. Acute hypoxemic respiratory failure: Resolved. Intubated on 02/02, extubated on 02/04/18. Appreciate pulmonology recommendations. Duoneb scheduled and as needed. 2. Pneumonia: CXR shows bilateral lower lobe consolidation. Continue antibiotics. Sputum culture pending. 3. Ischemic cardiomyopathy, chronic systolic CHF: AICD in place. Appreciate cardiology recommendations. Status post cardiac catheterization on 10/22/17. Continue aspirin, carvedilol, Plavix. Statin on hold secondary to elevated LFTs. 4. Severe aortic stenosis: Cardiology following. Workup for TAVR is in progress. 5. Chronic hyponatremia: Is low, but stable. 6. Gluteal wounds: Continue wound care. 7. GI prophylaxis: Famotidine. 8. DVT prophylaxis: SCDs. Heparin on hold secondary to thrombocytopenia. 9. Palliative care following. 10. Elevated LFTs: Avoid hepatotoxic medications. Dusty Damian MD February 06, 2018 11:09
[2018-02-06] MEDS: AZITHROMYCIN INJ 500 MG in SODIUM CHLOR 0.9% 250 ML INJ 250 ML IV SCH (18:24)
[2018-02-06] MEDS: CEFEPIME INJ 2,000 MG in SODIUM CHLORIDE 0.9% INJ 100 ML IV SCH (18:24)
--- NOTE | 2018-02-06 19:50 | PD.PROCEDR ---
Procedure Note Procedure Date: 02/06/18 Procedure: Cardiopulmonary resucitation Indication: PEA cardiac arrest Details of procedure: Patient with admission for cardiogenic shock, severe with workup for possible TAVR. Pt became unresponsive after going to the bathroom. Was pulseless and CPR was initiated. Per ACLS protocol pt received CPR, manual bag- valve ventilation via ETT, epinephrine x1, and NS infusion initiated. His daughter was outside the room and she approached the room as CPR was ongoing and requested that resuscitative efforts be discontinued. Patient was pulseless by palpation and doppler with no cardiac sounds. Initially some agonal respirations that ceased. Pupils fixed and dilated. Patient was pronounced at 19:26. Daughter was updated at bedside. Rolanda Mcginnis MD February 06, 2018 19:50
== END 2018-02-06 19:26 | disposition expired | DRG 208 ==
LOC: NEPE 15:37 → NEDA 17:15 → HIME 21:14 → N04A 02-05 14:49
PROVIDERS: ADMIT Family Medicine; ATTEND Family Medicine
PROC: 0BH17EZ Insertion of Endotracheal Airway into Trachea, Via Natural or Artificial Opening (ICD-10-PCS; principal; 2018-02-02)
PROC: 5A1945Z Respiratory Ventilation, 24-96 Consecutive Hours (ICD-10-PCS; 2018-02-02)
PROC: 5A12012 Performance of Cardiac Output, Single, Manual (ICD-10-PCS; 2018-02-06)
DX: J96.01 Acute respiratory failure with hypoxia (principal); R57.0 Cardiogenic shock; Z99.11 Dependence on respirator [ventilator] status; E87.2 Acidosis; N17.9 Acute kidney failure, unspecified; I13.0 Hypertensive heart and chronic kidney disease with heart failure and stage 1 through stage 4 chronic kidney disease, or unspecified chronic kidney disease; E87.1 Hypo-osmolality and hyponatremia; J98.11 Atelectasis; I25.5 Ischemic cardiomyopathy; I50.9 Heart failure, unspecified; I35.0 Nonrheumatic aortic (valve) stenosis; F41.9 Anxiety disorder, unspecified; I73.9 Peripheral vascular disease, unspecified; I46.9 Cardiac arrest, cause unspecified; E87.5 Hyperkalemia; N18.9 Chronic kidney disease, unspecified; J44.9 Chronic obstructive pulmonary disease, unspecified; I25.10 Atherosclerotic heart disease of native coronary artery without angina pectoris; Z95.810 Presence of automatic (implantable) cardiac defibrillator; Z79.82 Long term (current) use of aspirin; Z79.899 Other long term (current) drug therapy; Z51.5 Encounter for palliative care
CPT/HCPCS: 31500; 36600; 71045; 80048; 80053; 82805; 82948; 83605; 83735; 83880; 84100; 84295; 84484; 85025; 85610; 85730; 86022; 87040; 87070; 87205; 87641; 93005; 94002; 94003; 94150; 94640; 94664; 96374; 96375; J0330; J0456; J0692; J1644; J1940; J2405; J2543; J3010; J3370; J7030; J7050